=== PATIENT | female | born 1935 | race Caucasian/White ===

== ENCOUNTER 2022-02-22 11:33 | Outpatient (CLI) | payer MEDICARE, SELFPAY ==
--- NOTE | 2022-02-22 11:30 | CRLHL7_ITS ---
For Patients: As a result of the Century Cures Act, medical imaging exams and procedure reports are released immediately into your electronic medical record. You may view this report before your referring provider. If you have questions, please contact your health care provider. RIGHT SCREENING DIGITAL MAMMOGRAM WITH COMPUTER-AIDED DETECTION AND TOMOSYNTHESIS, 02/22/2022 INDICATION: 86-year-old asymptomatic female for screening mammogram. TECHNIQUE: CC and MLO views were obtained using full-field digital technique. These mammographic images were interpreted with the benefit of computer-aided detection and tomosynthesis. COMPARISON FILM: 03/04/2020, 03/01/2019. BREAST COMPOSITION: The breast is heterogeneously dense, which may obscure small masses. FINDINGS: Possible 1.3 cm asymmetry in the RIGHT breast at the 2 o`clock position 7 cm from the nipple. IMPRESSION: Possible RIGHT breast asymmetry. RECOMMENDATION: Recommend MLO and CC spot compression views and a 90-degree lateral view. Additionally, ultrasound may be needed during the diagnostic evaluation. The [facility] will contact the patient for follow-up. ASSESSMENT: BI-RADS Category 0: Incomplete: Need Additional Imaging Evaluation and/or Prior Mammograms for Comparison A lay language report of this examination will be provided to the patient. VIANNEY MAHAJAN M.D. Diagnostic/Breast Radiologist [email or web address] Transcribed: 2:[address]/Dictated by: Vianney Mahajan MD @ 02/22/2022 12:36:00 PM (Electronically Signed)
== END 2022-02-22 11:34 | disposition home or self-care (01) ==
LOC: MAMMO 11:34
PROVIDERS: PCP Internal Medicine; Visit Provider Internal Medicine
DX: Z12.31 Encounter for screening mammogram for malignant neoplasm of breast (principal); N63.10 Unspecified lump in the right breast, unspecified quadrant; R92.2 Inconclusive mammogram
CPT/HCPCS: 77063; 77067

== ENCOUNTER 2022-03-01 14:15 | Outpatient (RCR) | payer MEDICARE, SELFPAY | END 2022-12-08 23:59 | disposition home or self-care (01) | PROVIDERS: PCP Family Medicine; Visit Provider Psychiatry & Neurology Neurology | DX: R26.9 Unspecified abnormalities of gait and mobility (principal); Z51.89 Encounter for other specified aftercare | CPT/HCPCS: 97110; 97162; 97530 ==

== ENCOUNTER 2022-03-03 10:51 | Outpatient (CLI) | payer MEDICARE, SELFPAY ==
[2022-03-03 14:46] LABS: Chloride* 102 mmol/L (96-114); Sodium* 137 mmol/L (135-149)
[2022-03-03 14:47] LABS: Potassium* 4.3 mmol/L (3.6-5.1)
[2022-03-03 14:49] LABS: Carbon Dioxide* 25 mmol/L (20-32); Cholesterol* 250 mg/dL (90-199)
[2022-03-03 14:50] LABS: Blood Urea Nitrogen* 17 mg/dL (7-30); Calcium* 9.9 mg/dL (8.4-10.6); Glucose* 123 mg/dL (60-115); HDL Cholesterol* 70 mg/dL (>=50); LDL Cholesterol Calculated 132 mg/dL (<100); Triglycerides* 239 mg/dL (40-149)
[2022-03-03 15:05] LABS: Creatinine* 0.7 mg/dL (0.5-1.5); Estimated Glomerular Filt Rate 84 ml/min
== END 2022-03-03 10:52 | disposition home or self-care (01) ==
PROVIDERS: PCP Family Medicine; Visit Provider Internal Medicine
DX: Z00.00 Encounter for general adult medical examination without abnormal findings (principal); E78.5 Hyperlipidemia, unspecified; I10 Essential (primary) hypertension; E66.9 Obesity, unspecified; F41.9 Anxiety disorder, unspecified
CPT/HCPCS: 80048; 80061

== ENCOUNTER 2022-03-08 09:35 | Outpatient (CLI) | payer MEDICARE, SELFPAY ==
--- NOTE | 2022-03-08 09:45 | CRLHL7_ITS ---
For Patients: As a result of the Cures Act, medical imaging exams and procedure reports are released immediately into your electronic medical record. You may view this report before your referring provider. If you have questions, please contact your health care provider. DIGITAL DIAGNOSTIC RIGHT MAMMOGRAM USING TOMOSYNTHESIS AND COMPUTER-AIDED DETECTION RIGHT BREAST ULTRASOUND CLINICAL HISTORY: RIGHT breast mass/asymmetry. COMPARISON: 02/22/2022,. TECHNIQUE: Digital RIGHT mammogram in three projections. Tomosynthesis and CAD utilized. Real-time ultrasound imaging of RIGHT breast with imaging documentation. BREAST COMPOSITION: There are areas of scattered fibroglandular density. FINDINGS: 3D spot compression CC/MLO and 3D true lateral RIGHT breast mammogram submitted. Decreased conspicuity of asymmetric density within the RIGHT breast. Benign calcifications are present. No architectural distortion. Targeted RIGHT breast ultrasound performed at 2 o`clock 7 cm from the nipple. Normal fibroglandular tissue is present. No fibrocystic change or solid mass. IMPRESSION: Normal additional mammogram images RIGHT breast and normal targeted RIGHT breast ultrasound. No evidence of malignancy. RECOMMENDATIONS: Annual screening mammography. Results and recommendations discussed with the patient. BI-RADS Category 2: Benign A lay language report of this examination will be provided to the patient. Dictated by Tres Geramn MD @ 03/08/2022 11:47:16 AM jj/Dictated by: Tres German MD @ 03/08/2022 11:44:00 AM (Electronically Signed)
--- NOTE | 2022-03-08 10:15 | CRLHL7_ITS ---
For Patients: As a result of the Cures Act, medical imaging exams and procedure reports are released immediately into your electronic medical record. You may view this report before your referring provider. If you have questions, please contact your health care provider. PLEASE SEE DIGITAL DIAGNOSTIC RIGHT MAMMOGRAM PERFORMED SAME DAY CRL:[email or web address] buckner/Dictated by: Tres German MD @ 03/08/2022 11:47:00 AM (Electronically Signed)
== END 2022-03-08 09:36 | disposition home or self-care (01) ==
LOC: MAMMO 09:36
PROVIDERS: PCP Family Medicine; Visit Provider Internal Medicine
DX: N63.10 Unspecified lump in the right breast, unspecified quadrant (principal); R92.8 Other abnormal and inconclusive findings on diagnostic imaging of breast
CPT/HCPCS: 76642; 77065; G0279

== ENCOUNTER 2022-07-29 10:00 | Outpatient (RCR) | payer MEDICARE, SELFPAY ==
--- NOTE | 2022-04-29 18:16 | PT.OPEX ---
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 She reports that she is going to be seeing a urologist for her incontinence. Her NPH is medically managed by [place], pt states that there are no additional medical interventions that can be done for her at this time. She did not have a significant response to spinal tap and therefore may not benefit from a shunt. She has not fallen in the last couple of months. Is using a combination of 4WW in the house and SEC, is using a cane today in clinic. She doesn't note any specific moments or activities that makes her unsteady but notices more difficulty towards the end of the day. With walking and doing the steps she has difficulties navigating her doors and steps to get outside . She is not sure if she is getting any better or worse. She also has questions as to what she should be doing to address her symptoms as she is motivated to now work with therapy. Overall goals for PT are to improve balance and stability. PMHx: NPH, breast cancer, HTN, pacemaker, Current Work Status Retired Objective Other/Pertinent Objective ROM: B hip WFL as seen by [facility]MAN positioning strength: 5x STS 23.39s with use of arms hip flexors 4-/5 B knee extensors 4/5 B ankle DF L 4-/5 R 4/5 gait/balance: FGA all performed with SEC 14/ 30 most difficulty with eyes closed, backward walks, pivot turns, vertical head turns Patient ambulates with SEC in R hand, small step length, decreased foot clearance, slow pace throughout sensation: impaired sensation over dorsum of bilateral feet, patient having difficulty telling what foot/side that was being assessed. Difficulties with big toe proprioception coordination: toe taps and alternating intact, finger to nose intact Posture: B foot pronation and flat arches in sitting and standing Functional Test Performed & Score 5x STS 23.39s with use of arms FGA all performed with SEC 14/ 30 most difficulty with eyes closed, backward walks, pivot turns, vertical head turns Assessment Assessment/Impression Patient is an 86 year old female presenting with balance difficulties with ambulation due to normal pressure hydrocephalus. Their primary complaint is of instability that is most present at the end of her day with fatigue. Patient has been using a 4WW or SEC for mobility with no recent falls. No surgical interventions will be pursued at this time however patient is going to be consulting a urologist for her incontinence . Upon assessment patient displays decreased functional LE strength and deconditioning with 5x STS which is below age matched norms. Global LE weakness noted with MMT, most significant in hip flexors. Patient scored a 14/30 on FGA indicating increased falls risk with most difficulty ambulating with eyes closed, walking backwards, pivot turns and gait with vertical head turns. Impairments in bilateral LE sensation and proprioception also noted on exam, no coordination deficits at this time. Patient would greatly benefit from skilled PT to address impairments stated above in order to perform household and community mobility with improved tolerance and balance /stability to decrease risk for future falls and prevent further functional decline. Primary Functional Limitations walking, sitting to standing, navigating exiting home Plan of Care Rehabilitation Potential Good Physical Therapy Goals In 12-15 visits: 1. Patient will be IND with home program and self management of symptoms 2. Patient will improve 5x STS with or without hands from 23 .39s to 19s or less (MDC 4s) to demonstrate improvements in LE functional strength and activity tolerance 3. Patient will improve FGA from 14 to 18 (MDC 4) to demonstrate improvements in balance/stability for household and community mobility 4. Patient will report improved fatigue and minimal unsteadiness at the end of her day 4/7 days of the week for improved safety with mobility Coordination/Communication With Referral Source Treatment Plan/Direct Interventions Gait Training,Joint Mobilization,Manual Therapy, Neuromuscular Re-ed,Self-Care/ Home Management,Therapeutic Activities,Therapeutic Exercises Frequency/Duration 1-2x a week for 8 weeks Patient Will Be Discharged From Therapy Completion of LTG(s), Independent w/HEP Evaluation Billing Untimed Code Treatment Minutes 36 Complexity Moderate Certification Information Initial Certification Date 04/29/22 Ending Certification Date 07/22/22 Provider Signature Shows Agreement With POC & Medical Necessity Physician Signature & Date Requested Please Sign/Date Here Physician Comment/Change : Physician NPI Number #
--- NOTE | 2022-07-19 10:54 | PT.OPDNX ---
PT [place] Outpatient Daily Note PT [facility] Outpatient Daily Note Start: 04/29/22 15:18 Freq: Status: Active Protocol: Document 07/19/22 07:47 ENM (Rec: 07/19/22 10:47 ENM [id number]) E-signed By Sully Hinds DPT PT [facility] Daily Progress Note Visit Information Note Type Recert/Progress Note Visit Number [id number] Insurance Information Recert Due Date 10/11/22 Insurance Name Medicare B Medical Diagnosis age related physical disability idiopathic normal pressure hydrocephalus Treating Diagnosis impaired gait, impaired balance, decreased activity tolerance, decreased LE strength Referring MD Armstrong Subjective Subjective Patient states that she got a little bit of exercises in with walking and standing at her counter. Still hasn't found the right way to practice her sit to stands. Is planning to go to the senior once this week. Cruise coming up at the end of August. Neurology appointment in 2 weeks at [facility]. Home Exercise Home Exercise Comments Access Code: [email or web address] URL: [email or web address] Date: 04/29/2022 Prepared by: Sully Hinds Exercises Tandem Walking with Counter Support - 1 x daily - 7 x weekly - 2 sets - 8 reps Side Stepping with Counter Support - 1 x daily - 7 x weekly - 2 sets - 8 reps Sit to Stand Without Arm Support - 2 x daily - 7 x weekly - 1 sets - 8 reps Objective Other/Pertinent Objective TUG: with SEC 18.26s, with 4WW 13.3s Functional Test Performed & Score 07/05/22: 6 minute walk test 684 ft w 4WW and two standing rest breaks 06/28/2022 reassessed FGA: 13/30 w SEC use on items 7, 8, and 9. greatest difficulty w narrow FARRAH, eyes closed, stairs, step over obstacle, vertical head turns 06/21/22 reassessed 5x STS: 19. 29 sec w R UE on armrest 5x STS 23.39s with use of arms FGA all performed with SEC 14/ 30 most difficulty with eyes closed, backward walks, pivot turns, vertical head turns Patient Instructed in Risks/Benefits Yes Therapeutic Exercise Therapeutic Exercise Minutes (minutes) 36 Therapeutic Exercise: To Restore -Nustep UE/LE level 4 seat at Functional Status 12 x7 mins (SPM 50-60s) -STS w L or R UE support 3x10, medium fatigue following -endurance ambulation with 4WW x2 laps ( L1 2 mins, L2 2 mins ) Seated rest between each set for SOB and fatigue Neuromuscular Re-Ed Neuromuscular Reeducation Minutes ( 6 minutes) Neuromuscular Reeducation Comments dynamic balance walks -march walks 20'x2 SBA-CGA -tandem walks 20'x2 CGA -walking with eyes closed 20' x2 CGA, second set veering off the path towards the R -50' walking normal pace and quick pace Minimal-mild instability throughout Treatment Minutes Timed Code Treatment Minutes 42 Total Treatment Time 42 Billing Units Therapeutic Exercise Units 3 Assessment/Impression Assessment/Impression Patient returns to PT for balance/fall prevention follow -up. Sessions have focused on addressing cardiovascular endurance through ambulation, standing marches and sit<> stands. As well as dynamic balance and stability. She has continued to make very slow but steady small gains toward goals. Demonstrates improvements in LE functional strength as seen with STS. Improving fatigue toward end of the day as seen with self reports of no longer having near falls later in the evening. She is working to be more consistent with activity and exercising out of therapy, has started to go to the senior center once a week. [place] continues to benefit from skilled PT improve functional strength, activity tolerance and dynamic balance in order to safely participate in household/community mobility. Plan of Care Physical Therapy Goals In 12-15 visits: 1. Patient will be IND with home program and self management of symptoms MET 2. Patient will improve 5x STS with or without hands from 23 .39s to 19.39s or less (MDC 4s ) to demonstrate improvements in LE functional strength and activity tolerance. MET 3. Patient will improve FGA from 14 to 18 (MDC 4) to demonstrate improvements in balance/stability for household and community mobility NOT MET DISCONTINUED GOAL 4. Patient will report improved fatigue and minimal unsteadiness at the end of her day 4/7 days of the week for improved safety with mobility MET Added 07/19 5. Patient will display TUG score of 13s or less with AD to demonstrate decrease risk for falling Daily Plan of Care Continue per POC Daily Plan of Care Comments Plan: progress ambulation with 4WW balance challenges with SEC progress reps of STS step ups Recertification Information Initial Certification Date 04/29/22 Recertification Start Date 07/19/22 Recertification Due Date 10/11/22 Reasons to Continue Skilled Therapy [place] continues to benefit from skilled PT to prevent functional decline given complex medical history. As well as continue progressing functional strength, balance and activity tolerance in order to participate safely in community mobility Rehabilitation Potential fair Continued Plan of Care and Interventions 3 additional visits to finish out initial POC Provider Signature Shows Agreement With POC & Medical Necessity Physician Comment/Change Comment or Changes Physician NPI Number #
== END 2022-07-29 15:28 | disposition home or self-care (01) ==
PROVIDERS: PCP Family Medicine; Visit Provider Internal Medicine
DX: R54 Age-related physical debility (principal); Z51.89 Encounter for other specified aftercare
CPT/HCPCS: 97110; 97112; 97116; 97162

== ENCOUNTER 2022-11-07 09:06 | Emergency (ER) | payer MEDICARE, SELFPAY ==
[2022-11-07 09:18] VITALS: BP 190/129; PULSE 68; RESP 18; TEMP 35.9; O2SAT 94
--- NOTE | 2022-11-07 09:39 | ED.WOUNDLAC ---
HPI - Wound/Laceration General Chief Complaint: Laceration/Wound Stated Complaint: old wound bleed on scalp - on blood thinners Time Seen by Provider: 11/07/22 09:28 History of Present Illness HPI narrative: This 87-year-old woman comes in because of rebleeding in her scalp. She had an injury a couple weeks ago that required staple repair. She is on blood thinners. The delmer were applied because of persistent bleeding at that time. Since then the delmer have been removed and there was a scab on the wound that she was encouraged to rub. She was doing this and bleeding resumed. She has persistent oozing from this injury site in the scalp. She does not report any lightheadedness or shortness of breath. Related Data Home Medications Medication Instructions Recorded Confirmed L mastectomy bra 12/13/21 10/31/22 apixaban 5 mg tablet 5 mg PO BID 12/13/21 10/31/22 calcium carbonate 600 mg calcium 600 mg PO DAILY 12/13/21 10/31/22 (1,500 mg) tablet cholecalciferol (vitamin D3) 125 5,000 unit PO DAILY 12/13/21 10/31/22 mcg (5,000 unit) tablet cyanocobalamin (vitamin B-12) 1,000 mcg PO DAILY 12/13/21 10/31/22 1,000 mcg tablet glucosamine-chondroitin 250 mg-200 1 tab PO BID 12/13/21 10/31/22 mg tablet melatonin 5 mg capsule 5 mg PO .Bedtime 12/13/21 10/31/22 multivit with 1 tab PO QDAY 12/13/21 10/31/22 khlsmfhw-fbpl-FV-lutein 8 mg iron-400 mcg-300 mcg tablet (Centrum Silver Women) mirabegron 50 mg tablet,extended 50 mg PO QDAY 07/05/22 10/31/22 release 24 hr (Myrbetriq) metoprolol succinate 100 mg 100 mg PO QDAY 08/01/22 10/31/22 tablet,extended release 24 hr vibegron 75 mg tablet (Gemtesa) 75 mg PO QDAY 08/10/22 10/31/22 Previous Rx's Medication Instructions Recorded sertraline 100 mg tablet 100 mg PO DAILY #90 tabs 03/03/22 valsartan 160 mg tablet 160 mg PO BID #180 tabs 03/03/22 atorvastatin 20 mg tablet 20 mg PO QDAY #90 tabs 03/22/22 alendronate 70 mg tablet 70 mg PO .Every 7 Days #12 tabs 05/19/22 gabapentin 800 mg tablet 800 mg PO TID #360 tabs 05/19/22 Allergies Allergy/AdvReac Type Severity Reaction Status Date / Time bacitracin Allergy Intermediate Pain, Verified 10/31/22 13:38 irritation latex Allergy Mild Rash, Verified 10/31/22 13:38 effects breathing nickel Allergy Mild Irritation Verified 10/31/22 13:38 Erythromycin Allergy Unknown Unknown Uncoded 10/31/22 13:38 Review of Systems Status of ROS: Reports: 10 or more systems reviewed and unremarkable except as noted in History and below Narrative: Constitutional: No fevers, no weight gain or loss. Eyes: No discharge. No vision changes. HENT: No congestion, no sore throat, no ear pain. Cardiovascular: No chest pain, no palpitations. Respiratory: No shortness of breath, no wheezes, no cough. Gastrointestinal: No abdominal pain, no vomiting, no diarrhea. Genitourinary: No dysuria, no hematuria. Musculoskeletal: Normal range of motion. Skin: No rashes, no pruritis. Persistent bleeding from a wound in the scalp. Neurological: No dizziness, weakness, sensory change, speech change. Endo/Heme/Allergies: No bruising or bleeding. No polydipsia. Pysch: no suicidality, no anxiety, no insomnia. All other systems reviewed and are negative. 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 3-4/week , works [employer] 3 week, 2 kids, lives with daughter Smoking Status: Never smoker Do you use any of these nicotine containing products: None Second hand tobacco smoke exposure: No Non-prescribed substance use: denies use Little interest or pleasure in doing things: not at all Feeling down, depressed, or hopeless: not at all Exam Narrative: Exam Narrative: Constitutional: Well-developed, well-nourished, no acute distress. HEENT: Persistent oozing of blood from a wound in the scalp. The wound is less than 1 cm in length. Neck: Normal range of motion. Nontender. Supple. Heart: Intact distal pulses. Lungs: No chest discomfort. No wheezes, rhonchi, or rales. Abdomen: Nontender. Back: Normal range of motion. Extremities: Normal range of motion. No injury. Skin: Intact. No rash. Warm. No erythema or pallor. Neurologic: No altered sensation. No weakness. Alert and oriented. Psychiatric: No suicidality. No anxiety or depression. No insomnia. Nursing notes and vitals signs are reviewed. Const: Vital Signs, click to edit/add: Vital Signs - 24 hr 11/07/22 09:18 Temperature 96.6 F L Pulse Rate [Right Pulse Oximeter] 68 Respiratory Rate 18 Blood Pressure [Ri ght Upper Arm] 190/129 H Pulse Oximetry 94 Oxygen Delivery Me thod Room Air Course Vital Signs Vital signs: Initial Vital Signs Temperature 96.6 F L 11/07/22 09:18 Temperature Source Temporal Artery Scan 11/07/22 09:18 Pulse Rate 68 06/19/23 09:18 Respiratory Rate 18 11/07/22 09:18 Blood Pressure 190/129 H 11/07/22 09:18 Blood Pressure Mean 149 H 11/07/22 09:18 Blood Pressure Position Sitting 11/07/22 09:18 Pulse Oximetry 94 11/07/22 09:18 Oxygen Delivery Method Room Air 11/07/22 09:18 Vital Signs Temperature 96.6 F L 11/07/22 09:18 Pulse Rate 68 11/07/22 09:18 Respiratory Rate 18 11/07/22 09:18 Blood Pressure 190/129 H 11/07/22 09:18 Pulse Oximetry 94 11/07/22 09:18 Oxygen Delivery Method Room Air 11/07/22 09:18 Temperature 96.6 F L 11/07/22 09:18 Pulse Rate 68 11/07/22 09:18 Respiratory Rate 18 11/07/22 09:18 Blood Pressure 190/129 H 11/07/22 09:18 Pulse Oximetry 94 11/07/22 09:18 Oxygen Delivery Method Room Air 11/07/22 09:18 MDM - Wound/Laceration MDM Narrative Medical decision making narrative: This patient comes in with rebleeding of a wound in her scalp that was repaired a couple weeks ago with delmer. The delmer have been removed and she was rubbing this area and now bleeding has resumed again. I did clean the wound with water but saw that there was persistent oozing of blood that would likely require suture or staple repair again. After anesthesia with 1% lidocaine with epinephrine I placed 5 delmer to arrest the bleed. The patient was observed for about half an hour and there was no rebleeding. Instructions were given regarding wound care and the need for staple removal again in 5-7 days. Discharge Plan Discharge Clinical Impression: Laceration of scalp Patient Disposition: Home w/ Parent or Adult Condition: Improved Additional Instructions: Return to clinic or urgent care in 5-7 days for is a staple removal. Follow up with MD as needed or return if worsening symptoms happen. Prescriptions: No Action melatonin 5 mg capsule 5 mg PO .Bedtime cholecalciferol (vitamin D3) 125 mcg (5,000 unit) tablet 5,000 unit PO DAILY glucosamine-chondroitin 250-200 mg tablet 1 tab PO BID calcium carbonate 600 mg calcium (1,500 mg) tablet 600 mg PO DAILY cyanocobalamin (vitamin B-12) 1,000 mcg tablet 1,000 mcg PO DAILY Centrum Silver Women 8 mg iron-400 mcg-300 mcg tablet 1 tab PO QDAY (DME) L mastectomy bra 0 .Route .MEDSUPPLY apixaban 5 mg tablet 5 mg PO BID Myrbetriq 50 mg tablet extended release 24 hr 50 mg PO QDAY Hold Instructions: Patient trying new medication metoprolol succinate 100 mg tablet extended release 24 hr 100 mg PO QDAY valsartan 160 mg tablet 160 mg PO BID Qty: 180 3RF sertraline 100 mg tablet 100 mg PO DAILY Qty: 90 3RF atorvastatin 20 mg tablet 20 mg PO QDAY Qty: 90 3RF alendronate 70 mg tablet 70 mg PO .Every 7 Days Qty: 12 4RF gabapentin 800 mg tablet 800 mg PO TID Qty: 360 3RF Gemtesa 75 mg tablet 75 mg PO QDAY Follow Up/Referrals: Lina Armstrong MD [Primary Care Provider] - Stand Alone Forms: [facility] Info Instructions
== END 2022-11-07 10:29 | disposition home or self-care (01) ==
LOC: ED 10:24
PROVIDERS: Emergency Provider Emergency Medicine Emergency Medical Services; PCP Internal Medicine
DX: S01.01XA Laceration without foreign body of scalp, initial encounter (principal)
CPT/HCPCS: 12001; 99283; 99284

== ENCOUNTER 2022-11-27 15:21 | Emergency (ER) | payer MEDICARE, SELFPAY ==
[2022-11-27 15:23] VITALS: BP 180/141; PULSE 76; RESP 18; TEMP 36.5; O2SAT 92; BMI 33.8
--- NOTE | 2022-11-27 15:32 | CRLHL7_ITS ---
For Patients: As a result of the Cures Act, medical imaging exams and procedure reports are released immediately into your electronic medical record. You may view this report before your referring provider. If you have questions, please contact your health care provider. INDICATION: Fall, head injury back of head. COMPARISON: CT head 10/15/2022. TECHNIQUE: CT of the head without IV contrast. Coronal and sagittal reconstructions. FINDINGS: No intracranial hemorrhage, mass effect, or evidence of acute infarct. No midline shift. No abnormal extra-axial fluid collections. Mild to moderate generalized cerebral and cerebellar volume loss with associated ex vacuo dilation of the lateral ventricles. Mild to moderate chronic small vessel ischemic disease. Orbits and extraocular muscles are symmetric. The visualized paranasal sinuses and mastoid air cells are clear. No acute fracture identified. Large right posterior scalp hematoma. Small focus of residual scarring in the left anterior frontal scalp. IMPRESSION: 1. No acute intracranial findings. 2. Mild to moderate generalized cerebral volume loss and chronic small vessel ischemic disease. 3. Large right posterior scalp hematoma. Please note that all CT scans at this facility use dose modulation, iterative reconstruction, and/or weight-based dosing when appropriate to reduce radiation dose to as low as reasonably achievable. Dictated by Alexia Uribe MD @ 11/27/2022 4:39:11 PM (Electronically Signed)
--- NOTE | 2022-11-27 15:32 | ED_ITS ---
HPI - Head Injury General Chief complaint: Head Injury/Pain Stated complaint: fall, head lac Time Seen by Provider: 11/27/22 15:25 History of Present Illness HPI Narrative: This 87-year-old woman comes in for evaluation of a fall with injury to her head. This occurred just prior to arrival. She was at home and was carrying something when she misstepped and fell backwards. She bumped the occipital part of her head and has a hematoma there. She is on Eliquis. She does not report a ny headache and was able to get up and ambulate. She does not have any neck or back pain. She takes Eliquis for paroxysmal atrial fibrillation. Related Data Home Medications Medication Instructions Recorded Confirmed L mastectomy bra 12/13/21 11/14/22 apixaban 5 mg tablet 5 mg PO BID 12/13/21 11/14/22 calcium carbonate 600 mg calcium 600 mg PO DAILY 12/13/21 11/14/22 (1,500 mg) tablet cholecalciferol (vitamin D3) 125 5,000 unit PO DAILY 12/13/21 11/14/22 mcg (5,000 unit) tablet cyanocobalamin (vitamin B-12) 1,000 mcg PO DAILY 12/13/21 11/14/22 1,000 mcg tablet glucosamine-chondroitin 250 mg-200 1 tab PO BID 12/13/21 11/14/22 mg tablet multivit with 1 tab PO QDAY 12/13/21 11/14/22 tholkjbk-hwtf-TQ-lutein 8 mg iron-400 mcg-300 mcg tablet (Centrum Silver Women) mirabegron 50 mg tablet,extended 50 mg PO QDAY 07/05/22 11/14/22 release 24 hr (Myrbetriq) metoprolol succinate 100 mg 100 mg PO QDAY 08/01/22 11/14/22 tablet,extended release 24 hr vibegron 75 mg tablet (Gemtesa) 75 mg PO QDAY 08/10/22 11/14/22 Previous Rx's Medication Instructions Recorded sertraline 100 mg tablet 100 mg PO DAILY #90 tabs 03/03/22 valsartan 160 mg tablet 160 mg PO BID #180 tabs 03/03/22 atorvastatin 20 mg tablet 20 mg PO QDAY #90 tabs 03/22/22 alendronate 70 mg tablet 70 mg PO .Every 7 Days #12 tabs 05/19/22 gabapentin 800 mg tablet 800 mg PO TID #360 tabs 05/19/22 Allergies Allergy/AdvReac Type Severity Reaction Status Date / Time bacitracin Allergy Intermediate Pain, Verified 11/14/22 13:41 irritation latex Allergy Mild Rash, Verified 11/14/22 13:41 effects breathing nickel Allergy Mild Irritation Verified 11/14/22 13:41 Erythromycin Allergy Unknown Unknown Uncoded 11/14/22 13:41 Review of Systems Status of ROS: Reports: 10 or more systems reviewed and unremarkable except as noted in History and below Narrative: Constitutional: No fevers, no weight gain or loss. Eyes: No discharge. No vision changes. HENT: No congestion, no sore throat, no ear pain. Cardiovascular: No chest pain, no palpitations. Respiratory: No shortness of breath, no wheezes, no cough. Gastrointestinal: No abdominal pain, no vomiting, no diarrhea. Genitourinary: No dysuria, no hematuria. Musculoskeletal: Normal range of motion. Skin: No rashes, no pruritis. Neurological: No dizziness, weakness, sensory change, speech change. Endo/Heme/Allergies: No bruising or bleeding. No polydipsia. Pysch: no suicidality, no anxiety, no insomnia. All other systems reviewed and are negative. 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) ?Z96.652 - Presence of left artificial knee joint (ICD-10) 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 3-4/week , works [employer] 3 week, 2 kids, lives with daughter Smoking Status: Never smoker Do you use any of these nicotine containing products: None Second hand tobacco smoke exposure: No Non-prescribed substance use: denies use Little interest or pleasure in doing things: not at all Feeling down, depressed, or hopeless: not at all Exam Narrative: Exam Narrative: Constitutional: Well-developed, well-nourished, no acute distress. HEENT: Hematoma in the occipital portion of her head. There is no abrasion or laceration. Neck: Normal range of motion. Nontender. Supple. No pain when palpating along the spine of the neck and back. Heart: Regular. Mild systolic injection murmur. Normal rate. Intact distal pulses. Lungs: Clear to auscultation. No chest discomfort. No wheezes, rhonchi, or rales. Abdomen: Normal bowel sounds. Nontender. No rebound tenderness. Genitalia: Deferred. Back: No midline tenderness. Normal range of motion. Extremities: Normal range of motion. No injury. Skin: Intact. No rash. Warm. No erythema or pallor. Neurologic: No altered sensation. No weakness. Alert and oriented. Psychiatric: No suicidality. No anxiety or depression. No insomnia. Nursing notes and vitals signs are reviewed. Const: Vital Signs, click to edit/add: Vital Signs - 24 hr 11/27/22 15:23 Temperature 97.7 F Pulse Rate [Right Pulse Oximeter] 76 Respiratory Rate 18 Blood Pressure [Ri ght Upper Arm] 180/141 H Pulse Oximetry 92 Oxygen Delivery Me thod Room Air Course Vital Signs Vital signs: Initial Vital Signs Temperature 97.7 F 11/27/22 15:23 Temperature Source Temporal Artery Scan 11/27/22 15:23 Pulse Rate 76 11/27/22 15:23 Respiratory Rate 18 11/27/22 15:23 Blood Pressure 180/141 H 11/27/22 15:23 Blood Pressure Mean 154 H 11/27/22 15:23 Blood Pressure Position Sitting 11/27/22 15:23 Pulse Oximetry 92 11/27/22 15:23 Oxygen Delivery Method Room Air 11/27/22 15:23 Vital Signs Temperature 97.7 F 11/27/22 15:23 Pulse Rate 76 11/27/22 15:23 Respiratory Rate 18 11/27/22 15:23 Blood Pressure 180/141 H 11/27/22 15:23 Pulse Oximetry 92 11/27/22 15:23 Oxygen Delivery Method Room Air 11/27/22 15:23 Temperature 97.7 F 11/27/22 15:23 Pulse Rate 76 11/27/22 15:23 Respiratory Rate 18 11/27/22 15:23 Blood Pressure 180/141 H 11/27/22 15:23 Pulse Oximetry 92 11/27/22 15:23 Oxygen Delivery Method Room Air 11/27/22 15:23 MDM - Head Injury MDM Narrative Medical decision making narrative: This patient comes in for evaluation of injury from a fall that occurred just prior to arrival. She has a rather large occipital scalp hematoma. She is on Eliquis for paroxysmal atrial fibrillation. She does not report any other injury. She is not showing any sign of neurologic deficit. She does not have a headache. She is able to ambulate and her speech is normal. CT imaging of her head returns with no intracranial findings. There is no sign of fracture. She does of course have this large hematoma that is visualized also on CT imaging. Patient is okay to return home to continue current plans. Imaging Data CT scan - head: Radiologist's impression: 1. No acute intracranial findings. 2. Mild to moderate generalized cerebral volume loss and chronic small vessel ischemic disease. 3. Large right posterior scalp hematoma. Discharge Plan Discharge Clinical Impression: Hematoma of occipital region of scalp, Closed head injury Patient Disposition: Home w/ Parent or Adult Condition: Stable Additional Instructions: Continue current plans. Activity as tolerated. Follow up with MD or return if worsening. Prescriptions: No Action cholecalciferol (vitamin D3) 125 mcg (5,000 unit) tablet 5,000 unit PO DAILY glucosamine-chondroitin 250-200 mg tablet 1 tab PO BID calcium carbonate 600 mg calcium (1,500 mg) tablet 600 mg PO DAILY cyanocobalamin (vitamin B-12) 1,000 mcg tablet 1,000 mcg PO DAILY Centrum Silver Women 8 mg iron-400 mcg-300 mcg tablet 1 tab PO QDAY (DME) L mastectomy bra 0 .Route .MEDSUPPLY apixaban 5 mg tablet 5 mg PO BID Myrbetriq 50 mg tablet extended release 24 hr 50 mg PO QDAY Hold Instructions: Patient trying new medication metoprolol succinate 100 mg tablet extended release 24 hr 100 mg PO QDAY valsartan 160 mg tablet 160 mg PO BID Qty: 180 3RF sertraline 100 mg tablet 100 mg PO DAILY Qty: 90 3RF atorvastatin 20 mg tablet 20 mg PO QDAY Qty: 90 3RF alendronate 70 mg tablet 70 mg PO .Every 7 Days Qty: 12 4RF gabapentin 800 mg tablet 800 mg PO TID Qty: 360 3RF Gemtesa 75 mg tablet 75 mg PO QDAY Follow Up/Referrals: Lina Armstrong MD [Primary Care Provider] - Stand Alone [facility]: [facility] Inst[facility]
== END 2022-11-27 17:11 | disposition home or self-care (01) ==
LOC: ED 16:53
PROVIDERS: Emergency Provider Emergency Medicine Emergency Medical Services; PCP Internal Medicine
DX: S00.03XA Contusion of scalp, initial encounter (principal); W01.10XA Fall on same level from slipping, tripping and stumbling with subsequent striking against unspecified object, initial encounter
CPT/HCPCS: 70450; 99283; 99284

== ENCOUNTER 2022-12-10 07:15 | Emergency (ER) | payer MEDICARE, SELFPAY ==
[2022-12-10] VITALS (26 sets, daily range): BP systolic 185–219; BP diastolic 79–147; PULSE 63–84; RESP 18; TEMP 36.2; O2SAT 87–98; BMI 33.8
--- NOTE | 2022-12-10 07:32 | ED_ITS ---
HPI - Headache General Chief Complaint: Headache/Migraine <Stuart Comer MD - Last Filed: 12/12/22 07:37> Stated Complaint: headache <Stuart Comer MD - Last Filed: 12/12/22 07:37> Time Seen by Provider: 12/10/22 07:27 <Stuart Comer MD - Last Filed: 12/12/22 07:37> History of Present Illness HPI Narrative: Patient is a 87-year-old woman who fell approximately 2 weeks ago striking the back of her head. Patient was seen in the emergency room and CT scan showed only superficial scalp hematoma. Patient has history of normal pressure hydrocephalus. Patient had been recovering reasonably well but overnight developed a severe occipital headache. She has no other neurologic symptoms no nausea no vomiting no fevers no chills no neck pain. She presents with worsening of her symptoms and inability control her symptoms at home. No neurologic symptoms have been noted. Patient does take apixaban for paroxysmal atrial fibrillation. <Stuart Comer MD - Last Filed: 12/12/22 07:37> Related Data Home Medications: Home Medications Medication Instructions Recorded Confirmed L mastectomy bra 12/13/21 11/14/22 apixaban 5 mg tablet 5 mg PO BID 12/13/21 11/14/22 calcium carbonate 600 mg calcium 600 mg PO DAILY 12/13/21 11/14/22 (1,500 mg) tablet cholecalciferol (vitamin D3) 125 5,000 unit PO DAILY 12/13/21 11/14/22 mcg (5,000 unit) tablet cyanocobalamin (vitamin B-12) 1,000 mcg PO DAILY 12/13/21 11/14/22 1,000 mcg tablet glucosamine-chondroitin 250 mg-200 1 tab PO BID 12/13/21 11/14/22 mg tablet multivit with 1 tab PO QDAY 12/13/21 11/14/22 epievogt-igup-PU-lutein 8 mg iron-400 mcg-300 mcg tablet (Centrum Silver Women) mirabegron 50 mg tablet,extended 50 mg PO QDAY 07/05/22 11/14/22 release 24 hr (Myrbetriq) metoprolol succinate 100 mg 100 mg PO QDAY 08/01/22 11/14/22 tablet,extended release 24 hr vibegron 75 mg tablet (Gemtesa) 75 mg PO QDAY 08/10/22 11/14/22 Previous Rx's Medication Instructions Recorded sertraline 100 mg tablet 100 mg PO DAILY #90 tabs 03/03/22 valsartan 160 mg tablet 160 mg PO BID #180 tabs 03/03/22 atorvastatin 20 mg tablet 20 mg PO QDAY #90 tabs 03/22/22 alendronate 70 mg tablet 70 mg PO .Every 7 Days #12 tabs 05/19/22 gabapentin 800 mg tablet 800 mg PO TID #360 tabs 05/19/22 tizanidine 4 mg tablet 4 mg PO Q8H PRN muscle spasticity 12/10/22 #15 tabs <Stuart Comer MD - Last Filed: 12/12/22 07:37> Allergies/Adverse Reactions: Allergies Allergy/AdvReac Type Severity Reaction Status Date / Time bacitracin Allergy Intermediate Pain, Verified 11/14/22 13:41 irritation latex Allergy Mild Rash, Verified 11/14/22 13:41 effects breathing nickel Allergy Mild Irritation Verified 11/14/22 13:41 Erythromycin Allergy Unknown Unknown Uncoded 11/14/22 13:41 <Stuart Comer MD - Last Filed: 12/12/22 07:37> Review of Systems Status of ROS: Reports: 10 or more systems reviewed and unremarkable except as noted in History and below <Stuart Comer MD - Last Filed: 12/12/22 07:37> 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) ?Z96.652 - Presence of left artificial knee joint (ICD-10) 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/20) ?Z96.649 - Presence of unspecified artificial hip joint (ICD-10) Status post cardiac pacemaker procedure (07/2018) ?Z95.0 - Presence of cardiac pacemaker (ICD-10) History of left mastectomy (1998) ?Z90.12 - Acquired absence of left breast and nipple (ICD-10) History of blepharoplasty (2007) ?Z98.890 - Other specified postprocedural states (ICD-10) <Stuart Comer MD - Last Filed: 12/12/22 07:37> Family History: Family History Aunt Breast cancer Father Colon cancer, Onset Age: 75 <Stuart Comer MD - Last Filed: 12/12/22 07:37> Social History: Social History Narrative: Exercises two times per week, water exercise 2/week Non-smoker Social drinker. 3-4/week , works [employer] 3 week, 2 kids, lives with daughter Smoking Status: Never smoker Do you use any of these nicotine containing products: None Second hand tobacco smoke exposure: No How often do you have a drink containing alcohol: 2-4 times a month AUDIT-C Alcohol total score: 2 Non-prescribed substance use: denies use Little interest or pleasure in doing things: not at all Feeling down, depressed, or hopeless: not at all <Stuart Comer MD - Last Filed: 12/12/22 07:37> Exam Narrative: Exam Narrative: EXAM GENERAL: Patient appears comfortable and well. EYES: No scleral icterus. Head is normocephalic no obvious signs of trauma. LYMPH: No supraclavicular or cervical lymphadenopathy. SKIN: Visible skin seen during exam normal or with benign process only. EXT: No dependent lower extremity pedal edema. HEART: Regular rate and rhythm with no murmurs, rubs, or gallops. LUNGS: Clear to auscultation bilaterally with no crackles or wheezes. ABD: Soft, non tender, non distended. PSYCH: Good eye contact, speech is not pressured. <Stuart Comer MD - Last Filed: 12/12/22 07:37> Const: Vital Signs, click to edit/add: Vital Signs - 24 hr 12/10/22 07:21 12/10/22 07:32 12/10/22 07:33 Temperature 97.1 F L Pulse Rate 67 67 Pulse Rate [Pulse Oximeter] 66 Respiratory Rate 18 Blood Pressure 190/85 H Blood Pressure [Ri ght Upper Arm] 198/83 H Pulse Oximetry 98 98 97 Oxygen Delivery Me thod Room Air 12/10/22 08:00 12/10/22 08:03 12/10/22 08:30 Temperature Pulse Rate 68 65 72 Pulse Rate [Pulse Oximeter] Respiratory Rate Blood Pressure 203/89 H Blood Pressure [Ri ght Upper Arm] Pulse Oximetry 98 98 95 Oxygen Delivery Me thod 12/10/22 08:32 12/10/22 08:48 12/10/22 09:00 Temperature Pulse Rate 71 75 77 Pulse Rate [Pulse Oximeter] Respiratory Rate Blood Pressure 215/112 H Blood Pressure [Ri ght Upper Arm] Pulse Oximetry 94 93 95 Oxygen Delivery Me thod 12/10/22 09:03 12/10/22 09:04 12/10/22 09:30 Temperature Pulse Rate 77 78 71 Pulse Rate [Pulse Oximeter] Respiratory Rate Blood Pressure 207/147 H Blood Pressure [Ri ght Upper Arm] Pulse Oximetry 96 94 96 Oxygen Delivery Me thod 12/10/22 09:32 12/10/22 10:00 12/10/22 10:02 Temperature Pulse Rate 76 63 72 Pulse Rate [Pulse Oximeter] Respiratory Rate Blood Pressure 213/94 H 213/93 H Blood Pressure [Ri ght Upper Arm] Pulse Oximetry 93 91 91 Oxygen Delivery Me thod 12/10/22 10:30 12/10/22 10:32 12/10/22 10:33 Temperature Pulse Rate 76 78 73 Pulse Rate [Pulse Oximeter] Respiratory Rate Blood Pressure 219/97 H Blood Pressure [Ri ght Upper Arm] Pulse Oximetry 96 95 93 Oxygen Delivery Me thod 12/10/22 11:02 Temperature Pulse Rate Pulse Rate [Pulse Oximeter] Respiratory Rate Blood Pressure 202/107 H Blood Pressure [Ri ght Upper Arm] Pulse Oximetry Oxygen Delivery Me thod <Stuart Comer MD - Last Filed: 12/12/22 07:37> Vital Signs, click to edit/add: Vital Signs - 24 hr 12/10/22 07:21 12/10/22 07:32 12/10/22 07:33 Temperature 97.1 F L Pulse Rate 67 67 Pulse Rate [Pulse Oximeter] 66 Respiratory Rate 18 Blood Pressure 190/85 H Blood Pressure [Ri ght Upper Arm] 198/83 H Pulse Oximetry 98 98 97 Oxygen Delivery Me thod Room Air 12/10/22 08:00 12/10/22 08:03 12/10/22 08:30 Temperature Pulse Rate 68 65 72 Pulse Rate [Pulse Oximeter] Respiratory Rate Blood Pressure 203/89 H Blood Pressure [Ri ght Upper Arm] Pulse Oximetry 98 98 95 Oxygen Delivery Me thod 12/10/22 08:32 12/10/22 08:48 12/10/22 09:00 Temperature Pulse Rate 71 75 77 Pulse Rate [Pulse Oximeter] Respiratory Rate Blood Pressure 215/112 H Blood Pressure [Ri ght Upper Arm] Pulse Oximetry 94 93 95 Oxygen Delivery Me thod 12/10/22 09:03 12/10/22 09:04 12/10/22 09:30 Temperature Pulse Rate 77 78 71 Pulse Rate [Pulse Oximeter] Respiratory Rate Blood Pressure 207/147 H Blood Pressure [Ri ght Upper Arm] Pulse Oximetry 96 94 96 Oxygen Delivery Me thod 12/10/22 09:32 12/10/22 10:00 12/10/22 10:02 Temperature Pulse Rate 76 63 72 Pulse Rate [Pulse Oximeter] Respiratory Rate Blood Pressure 213/94 H 213/93 H Blood Pressure [Ri ght Upper Arm] Pulse Oximetry 93 91 91 Oxygen Delivery Me thod 12/10/22 10:30 12/10/22 10:32 12/10/22 10:33 Temperature Pulse Rate 76 78 73 Pulse Rate [Pulse Oximeter] Respiratory Rate Blood Pressure 219/97 H Blood Pressure [Ri ght Upper Arm] Pulse Oximetry 96 95 93 Oxygen Delivery Me thod 12/10/22 11:02 Temperature Pulse Rate Pulse Rate [Pulse Oximeter] Respiratory Rate Blood Pressure 202/107 H Blood Pressure [Ri ght Upper Arm] Pulse Oximetry Oxygen Delivery Me thod <Nicole Perera MD - Last Filed: 12/10/22 13:09> Course Course Hospital Course: Patient seen and examined. CT of the head repeated. 1 L normal saline 30 mg Toradol 4 mg Zofran and 25 mg Benadryl ordered. <Stuart Comer MD - Last Filed: 12/12/22 07:37> Reevaluation(s) Time of Reevaluation #1: 08:28 <Nicole Perera MD - Last Filed: 12/10/22 13:09> Reevaluation #1: Patient is also complaining of pain in her buttock region. This started after the fall. She states it hurts more with walking, more by the end of the day. She had been using Tylenol for her headache since the fall, was doing better but then this morning woke up with sharp stabbing pain, she feels is like a headache for her. She just received Benadryl and Zofran, states her head is still hurting. She has not taken any Tylenol this morning. Will give her 1000 mg oral Tylenol. We will proceed with CT imaging of her lumbar spine and pelvis to rule out occult fracture from the fall. Patient is on apixaban. She does not hurt anteriorly over the symphysis area. Posteriorly she is hurting along the lower lumbar spine into the sacral area. I see no evidence of skin breakdown, no evidence of bruising, no evidence of ulceration posteriorly. <Nicole Perera MD - Last Filed: 12/10/22 13:09> Time of Reevaluation #2: 08:59 <Nicole Perera MD - Last Filed: 12/10/22 13:09> Reevaluation #2: Nursing staff reports that the patient is complaining of a 10/10 headache after coming back from imaging. Will proceed with 2 mg IV morphine. Await the lumbar and pelvic images. Head CT showing no acute pathology. <Nicole Perera MD - Last Filed: 12/10/22 13:09> Time of Reevaluation #3: 09:35 <Nicole Perera MD - Last Filed: 12/10/22 13:09> Reevaluation #3: Patient is not taken any of her a.m. medications, blood pressure is high. Daughter notes her blood pressure runs high even with her medicines. We will get her morning medicines in, see if there is any contribution to the headache with her hypertension. Again head CT is normal. She is localizing the headache to the right occipital area, can reproduce some point tenderness in that area. Have discussed trying a lidocaine injection as none of the medicines we have given her of really helped. She has tried icing. We did discuss that there could be a risk of bleeding at the skin with the injection. She does understand. She would like to proceed and I do think this is reasonable, very noninvasive way to potentially help her if it is more of an occipital neuralgia that is potentially developing. <Nicole Perera MD - Last Filed: 12/10/22 13:09> Additional Reevaluation(s): 11:25am was just in to see the patient, she states that she really needs something for the pain. The lidocaine worked for short period, states she was able to fall asleep and actually did sleep for a while. However, she feels it is already wore off and the pain is back in the right base of her head. She is described as a stabbing pain before. We have tried Tylenol, try the lidocaine injection. She cannot do NSAIDs due to a Mendez a band. She is already on gabapentin 2400 mg daily. I do wonder if the fall has aggravated occipital neuralgia for her. We discussed narcotic use an increased risk for falls. She states she will stay in a chair all day long if she has 2. The pain is miserable for her. Reviewed that narcotic pain medicines may not actually take this away but could effectively less than the pain for her. She does reside with her daughter. Both patient and daughter would like to proceed with further pain management. We did review that 2 mg IV morphine really did not help her much. We will try oxycodone 5 mg orally. Could consider adding a muscle r elaxant but obviously do worry about the increased sedative affect and increased risk of falls. 11:59am patient has stated the oxycodone has not helped at all. This was 1 of my concerns that narcotics were not going to treat this type of pain very effectively. One could conceivably consider 1 dose NSAIDs but this is not really going to be beneficial if her pain is truly from an occipital neuralgia. Will try bit of a muscle relaxant with Zanaflex. Otherwise, may need to just continue icing, take Tylenol and try to get in with Neurology outpatient. She is already on gabapentin, and him extremely reluctant to do anything like Tegretol on top of her current medications. 1:05pm patient really has not experienced any relief outside of the lidocaine which lasted briefly. At this time, plan is to discharge to home. She will use ice, baseline Tylenol, will send in a muscle relaxant for her to take scheduled. Will have her follow up outpatient, consideration for neurology referral. Alex pitt did want to know how long this might last. Unfortunately, I am unable to tell her that. For some people it is self-limited, for others is more of a chronic problem. It remains to be seen with her if this is going to be a chronic issue, even if this is the right diagnosis at this time. <Nicole Perera MD - Last Filed: 12/10/22 13:09> Vital Signs Vital signs: Initial Vital Signs Temperature 97.1 F L 12/10/22 07:21 Temperature Source Temporal Artery Scan 12/10/22 07:21 Pulse Rate 66 12/10/22 07:21 Respiratory Rate 18 12/10/22 07:21 Blood Pressure 198/83 H 12/10/22 07:21 Blood Pressure Mean 121 H 12/10/22 07:21 Blood Pressure Position Supine 12/10/22 07:21 Pulse Oximetry 98 12/10/22 07:21 Oxygen Delivery Method Room Air 12/10/22 07:21 Vital Signs Temperature 97.1 F L 12/10/22 07:21 Pulse Rate 66 12/10/22 07:21 Respiratory Rate 18 12/10/22 07:21 Blood Pressure 198/83 H 12/10/22 07:21 Pulse Oximetry 98 12/10/22 07:21 Oxygen Delivery Method Room Air 12/10/22 07:21 Temperature 97.1 F L 12/10/22 07:21 Pulse Rate 71 12/10/22 13:02 Respiratory Rate 18 12/10/22 07:21 Blood Pressure 191/79 H 12/10/22 13:32 Pulse Oximetry 94 12/10/22 13:02 Oxygen Delivery Method Room Air 12/10/22 07:21 <Stuart Comer MD - Last Filed: 12/12/22 07:37> Initial Vital Signs Temperature 97.1 F L 12/10/22 07:21 Temperature Source Temporal Artery Scan 12/10/22 07:21 Pulse Rate 66 12/10/22 07:21 Respiratory Rate 18 12/10/22 07:21 Blood Pressure 198/83 H 12/10/22 07:21 Blood Pressure Mean 121 H 12/10/22 07:21 Blood Pressure Position Supine 12/10/22 07:21 Pulse Oximetry 98 12/10/22 07:21 Oxygen Delivery Method Room Air 12/10/22 07:21 Vital Signs Temperature 97.1 F L 12/10/22 07:21 Pulse Rate 66 12/10/22 07:21 Respiratory Rate 18 12/10/22 07:21 Blood Pressure 198/83 H 12/10/22 07:21 Pulse Oximetry 98 12/10/22 07:21 Oxygen Delivery Method Room Air 12/10/22 07:21 Temperature 97.1 F L 12/10/22 07:21 Pulse Rate 71 12/10/22 13:02 Respiratory Rate 18 12/10/22 07:21 Blood Pressure 191/79 H 12/10/22 13:32 Pulse Oximetry 94 12/10/22 13:02 Oxygen Delivery Method Room Air 12/10/22 07:21 <Nicole Perera MD - Last Filed: 12/10/22 13:09> MDM - Headache Imaging Data CT pelvis: Attestation: I have reviewed the pertinent imaging results. <Nicole Rodriguez MD - Last Filed: 12/10/22 13:09> My impression: CT imaging was visualize, I do not appreciate any acute fracture, will certainly await Radiology over-read. <Nicole Perera MD - Last Filed: 12/10/22 13:09> Radiologist's impression: Patient: DES SHIRLEY Facility:?[facility] Patient ID:?[id number] Site Patient ID:?[id number]. Site :?[id number] Study:?CT Pelvis WO-12/10/2022 8:52:16 AM Ordering Physician:Raimundo Rivera Final Report: INDICATION: Pelvic pain post fall. TECHNIQUE: Volumetric helical scanning of the pelvis was performed without contrast material. Coronal and sagittal reconstructions were obtained. COMPARISON: Today`s lumbar spine CT FINDINGS: No hip or pelvic fracture is identified. Intact left hip prosthesis. No subluxation/diastasis is evident. No obvious soft tissue injury/hematoma is demonstrated. The visualized bowel is unremarkable except for colonic diverticulosis. The uterus and ovaries are grossly negative. No lymphadenopathy is evident. No free fluid is noted. IMPRESSION: Negative for fracture and other acute traumatic abnormality. Please note that all CT scans at this facility use dose modulation, iterative reconstruction, and/or weight-based dosing when appropriate to reduce radiation dose to as low as reasonably achievable. Dictated by Elkin Nguyen MD @ 12/10/2022 9:30:04 AM (Electronic Signature) <Nicole Perera MD - Last Filed: 12/10/22 13:09> CT lumbar spine: Attestation: I have reviewed the pertinent imaging results. <Nicole Perera MD - Last Filed: 12/10/22 13:09> My impression: Did visualize some of the lumbar views of the CT imaging, do not see acute fracture, await Radiology over-read. <Nicole Perera MD - Last Filed: 12/10/22 13:09> Radiologist's impression: Patient: DES SHIRLEY Facility:?[facility] Patient ID:?[id number] Site Patient ID:?[id number]. Site :?[id number] Study:?CT Spine Lumbar WO-12/10/2022 8:52:51 AM Ordering Physician:Raimundo Rivera Final Report: INDICATION: Low back pain post fall TECHNIQUE: Volumetric helical scanning of the lumbar spine was performed without contrast material. Sagittal and coronal reconstructions were also obtained. COMPARISON: Today`s pelvic CT. FINDINGS: No fracture or paraspinous hematoma is demonstrated. The disc spaces are well maintained. Advanced facet degenerative changes are demonstrated from L3-S1 and mild facet degenerative changes noted otherwise. A degenerative grade 1 L4 anterolisthesis is noted. No curvature abnormality is demonstrated. Chronic disc bulging at L3-4 is demonstrated along with facet and ligamentum flavum hypertrophy bilaterally producing mild to moderate degenerative spinal stenosis. IMPRESSION: 1. Negative for acute traumatic abnormality. 2. Degenerative changes, as above, including mild to moderate degenerative spinal stenosis at L3-4. Please note that all CT scans at this facility use dose modulation, iterative reconstruction, and/or weight-based dosing when appropriate to reduce radiation dose to as low as reasonably achievable. Dictated by Elkin Nguyen MD @ 12/10/2022 9:35:25 AM (Electronic Signature) <Nicole Perera MD - Last Filed: 12/10/22 13:09> CT scan - head: Attestation: I have reviewed the pertinent imaging results. <Nicole Rodriguez MD - Last Filed: 12/10/22 13:09> Radiologist's impression: Patient: DES SHIRLEY Facility:?[facility] Patient ID:?[id number] Site Patient ID:?[id number]. Site :?[id number] Study:?CT Head WO-12/10/2022 7:57:58 AM Ordering Physician:Erik Davidson Final Report: INDICATION: Headache TECHNIQUE: Scanning of the head was performed without IV contrast material. Coronal and sagittal reconstructions were obtained. COMPARISON: Head CT of 11/27/2022 FINDINGS: No intracranial hemorrhage is demonstrated. No positive mass effect is evident. Differentiation between the woods matter and white matter is preserved. A resolving right parietal scalp hematoma is demonstrated. There is nonspecific decreased attenuation in the cerebral white matter which is most likely due to aging/chronic microvascular ischemic disease. The ventricles and other subarachnoid spaces are within normal limits for the patient`s age. No calvarial abnormality is evident. The visualized paranasal and mastoid sinuses are clear. IMPRESSION: 1. No acute abnormality demonstrated. 2. Nonspecific cerebral white matter disease, most likely due to aging/chronic microvascular ischemic disease. 3. Resolving right parietal scalp hematoma. Please note that all CT scans at this facility use dose modulation, iterative reconstruction, and/or weight-based dosing when appropriate to reduce radiation dose to as low as reasonably achievable. Dictated by Elkin Nguyen MD @ 12/10/2022 8:41:37 AM (Electronic Signature) <Nicole Perera MD - Last Filed: 12/10/22 13:09> Discharge Plan Discharge Clinical Impression: Occipital neuralgia of right side <Stuart Comer MD - Last Filed: 12/12/22 07:37> Patient Disposition: Home, Self-Care <Stuart Comer MD - Last Filed: 12/12/22 07:37> Condition: Stable <Stuart Comer MD - Last Filed: 12/12/22 07:37> Instructions: Acute Headache (ED) <Stuart Comer MD - Last Filed: 12/12/22 07:37> Additional Instructions: I suspect you have occipital neuralgia which is 1 disorder that can cause headaches. Ice to the right back of the head where you are getting the pain, can do 20 minutes on, 10 minutes off. Tylenol 1000 mg 3 times a day baseline for pain. Have written for a muscle relaxant to take scheduled for few days and see if this might help. Otherwise, follow up in clinic next week as soon as you can with your primary care provider. You may ultimately need referral to Neurology and this can be done by your primary provider. <Stuart Comer MD - Last Filed: 12/12/22 07:37> Activity Level: Activity as Tolerated <Stuart Comer MD - Last Filed: 12/12/22 07:37> Activity as Tolerated <Nicole Perera MD - Last Filed: 12/10/22 13:09> Prescriptions: New tizanidine 4 mg tablet 4 mg PO Q8H PRN (Reason: muscle spasticity) Qty: 15 0RF No Action cholecalciferol (vitamin D3) 125 mcg (5,000 unit) tablet 5,000 unit PO DAILY glucosamine-chondroitin 250-200 mg tablet 1 tab PO BID calcium carbonate 600 mg calcium (1,500 mg) tablet 600 mg PO DAILY cyanocobalamin (vitamin B-12) 1,000 mcg tablet 1,000 mcg PO DAILY Centrum Silver Women 8 mg iron-400 mcg-300 mcg tablet 1 tab PO QDAY (DME) L mastectomy bra 0 .Route .MEDSUPPLY apixaban 5 mg tablet 5 mg PO BID Myrbetriq 50 mg tablet extended release 24 hr 50 mg PO QDAY Hold Instructions: Patient trying new medication metoprolol succinate 100 mg tablet extended release 24 hr 100 mg PO QDAY valsartan 160 mg tablet 160 mg PO BID Qty: 180 3RF sertraline 100 mg tablet 100 mg PO DAILY Qty: 90 3RF atorvastatin 20 mg tablet 20 mg PO QDAY Qty: 90 3RF alendronate 70 mg tablet 70 mg PO .Every 7 Days Qty: 12 4RF gabapentin 800 mg tablet 800 mg PO TID Qty: 360 3RF Gemtesa 75 mg tablet 75 mg PO QDAY <Stuart Comer MD - Last Filed: 12/12/22 07:37> Follow Up/Referrals: Lina Armstrong MD [Primary Care Provider] - <Stuart Comer MD - Last Filed: 12/12/22 07:37> Stand Alone Forms: [facility] Info Instructions <Stuart Comer MD - Last Filed: 12/12/22 07:37> Procedures Additional Procedures Procedure name: Right occipital area injection <Nicole Perera MD - Last Filed: 12/10/22 13:09> Pre procedure diagnosis: Same <Nicole Perera MD - Last Filed: 12/10/22 13:09> Post procedure diagnosis: Right occipital stabbing headache <Nicole Perera MD - Last Filed: 12/10/22 13:09> Site marking: site marked <Nicole Perera MD - Last Filed: 12/10/22 13:09> Verification/time out: correct patient, correct site and correct procedure <Nicole Rodriguez MD - Last Filed: 12/10/22 13:09> Estimated blood loss (if any): none <Nicole Perera MD - Last Filed: 12/10/22 13:09> Specimen sent: No <Nicole Perera MD - Last Filed: 12/10/22 13:09> Conclusion: patient tolerated procedure <Nicole Perera MD - Last Filed: 12/10/22 13:09> Additional comments: Alcohol was used as a prep. Patient's point of maximal tenderness over the right occipital area was identified and marked, 5 mL of plain 1% lidocaine were infiltrated in the area. There was no bleeding, she tolerated the procedure well. We will see if this does help her at all. <Nicole Rodriguez MD - Last Filed: 12/10/22 13:09>
--- NOTE | 2022-12-10 07:38 | CRLHL7_ITS ---
For Patients: As a result of the Century Cures Act, medical imaging exams and procedure reports are released immediately into your electronic medical record. You may view this report before your referring provider. If you have questions, please contact your health care provider. INDICATION: Headache TECHNIQUE: Scanning of the head was performed without IV contrast material. Coronal and sagittal reconstructions were obtained. COMPARISON: Head CT of 11/27/2022 FINDINGS: No intracranial hemorrhage is demonstrated. No positive mass effect is evident. Differentiation between the woods matter and white matter is preserved. A resolving right parietal scalp hematoma is demonstrated. There is nonspecific decreased attenuation in the cerebral white matter which is most likely due to aging/chronic microvascular ischemic disease. The ventricles and other subarachnoid spaces are within normal limits for the patient`s age. No calvarial abnormality is evident. The visualized paranasal and mastoid sinuses are clear. IMPRESSION: 1. No acute abnormality demonstrated. 2. Nonspecific cerebral white matter disease, most likely due to aging/chronic microvascular ischemic disease. 3. Resolving right parietal scalp hematoma. Please note that all CT scans at this facility use dose modulation, iterative reconstruction, and/or weight-based dosing when appropriate to reduce radiation dose to as low as reasonably achievable. Dictated by Elkin Nguyen MD @ 12/10/2022 8:41:37 AM (Electronically Signed)
[2022-12-10] MEDS: 0.9 % SODIUM CHLORIDE 1000 ml 1,000 ML IV (08:00)
[2022-12-10] MEDS: ONDANSETRON 2 MG/ML inj 4 MG IVP (08:10)
[2022-12-10] MEDS: diphenhydrAMINE 25 MG in 0.9 % SODIUM CHLORIDE 100 ml 100 ML 402 MG IVPB (08:10)
--- NOTE | 2022-12-10 08:26 | CRLHL7_ITS ---
For Patients: As a result of the Century Cures Act, medical imaging exams and procedure reports are released immediately into your electronic medical record. You may view this report before your referring provider. If you have questions, please contact your health care provider. INDICATION: Low back pain post fall TECHNIQUE: Volumetric helical scanning of the lumbar spine was performed without contrast material. Sagittal and coronal reconstructions were also obtained. COMPARISON: Today`s pelvic CT. FINDINGS: No fracture or paraspinous hematoma is demonstrated. The disc spaces are well maintained. Advanced facet degenerative changes are demonstrated from L3-S1 and mild facet degenerative changes noted otherwise. A degenerative grade 1 L4 anterolisthesis is noted. No curvature abnormality is demonstrated. Chronic disc bulging at L3-4 is demonstrated along with facet and ligamentum flavum hypertrophy bilaterally producing mild to moderate degenerative spinal stenosis. IMPRESSION: 1. Negative for acute traumatic abnormality. 2. Degenerative changes, as above, including mild to moderate degenerative spinal stenosis at L3-4. Please note that all CT scans at this facility use dose modulation, iterative reconstruction, and/or weight-based dosing when appropriate to reduce radiation dose to as low as reasonably achievable. Dictated by Elkin Nguyen MD @ 12/10/2022 9:35:25 AM (Electronically Signed)
--- NOTE | 2022-12-10 08:26 | CRLHL7_ITS ---
For Patients: As a result of the Century Cures Act, medical imaging exams and procedure reports are released immediately into your electronic medical record. You may view this report before your referring provider. If you have questions, please contact your health care provider. INDICATION: Pelvic pain post fall. TECHNIQUE: Volumetric helical scanning of the pelvis was performed without contrast material. Coronal and sagittal reconstructions were obtained. COMPARISON: Today`s lumbar spine CT FINDINGS: No hip or pelvic fracture is identified. Intact left hip prosthesis. No subluxation/diastasis is evident. No obvious soft tissue injury/hematoma is demonstrated. The visualized bowel is unremarkable except for colonic diverticulosis. The uterus and ovaries are grossly negative. No lymphadenopathy is evident. No free fluid is noted. IMPRESSION: Negative for fracture and other acute traumatic abnormality. Please note that all CT scans at this facility use dose modulation, iterative reconstruction, and/or weight-based dosing when appropriate to reduce radiation dose to as low as reasonably achievable. Dictated by Elkin Nguyen MD @ 12/10/2022 9:30:04 AM (Electronically Signed)
[2022-12-10] MEDS: ACETAMINOPHEN 500 MG TABLET 1000 MG PO (08:35)
[2022-12-10] MEDS: MORPHINE 2 MG/ML inj IVP (09:14)
[2022-12-10] MEDS: LIDOCAINE 1% 5 ml (pf) 5 ML VIAL INJECTION (09:45)
--- NOTE | 2022-12-10 10:26 | PC.NURSE ---
pt to bathroom with standby assist, took daily meds as instructed by Dr Costello, daughter brought them form home
[2022-12-10] MEDS: OXYCODONE 5 MG TABLET PO (11:30)
[2022-12-10] MEDS: TIZANIDINE HCL 4 MG TABLET PO (12:43)
== END 2022-12-10 13:53 | disposition home or self-care (01) ==
PROVIDERS: Emergency Provider Internal Medicine; PCP Internal Medicine
DX: M54.81 Occipital neuralgia (principal)
CPT/HCPCS: 64405; 70450; 72131; 72192; 96365; 96375; 99283; 99284; A9270; J1200; J2270; J2405; J7030

== ENCOUNTER 2023-01-12 12:45 | Outpatient (CLI) | payer MEDICARE, SELFPAY | END 2023-01-12 12:46 | disposition home or self-care (01) | LOC: RAD 12:46 | PROVIDERS: PCP Internal Medicine; Visit Provider Internal Medicine | DX: R01.1 Cardiac murmur, unspecified (principal); I51.7 Cardiomegaly; I34.0 Nonrheumatic mitral (valve) insufficiency; I35.1 Nonrheumatic aortic (valve) insufficiency; I07.1 Rheumatic tricuspid insufficiency | CPT/HCPCS: 93306 ==

== ENCOUNTER 2023-05-30 09:30 | Outpatient (CLI) | payer MEDICARE, SELFPAY ==
--- OUTSIDE RECORDS SUMMARY | 2023-05-31 06:15 | XMS_ITS | Clinical Summary ---
Author Name Unknown Organization [facility] Address [place], [place] [address] Care Team Providers Care Assistant Department Manager Name Role Phone Lina Armstrong MD Primary Care Provider [phone] Allergies Active Allergy Reactions Criticality Noted Date Comments Bacitracin *Unknown Medium 11/10/2017 Intermediate 08/17/2017 per [facility] info Erythromycin *Unknown Medium 11/10/2017 Intermediate reaction per [facility] 08/17/2017 Latex Throat Swelling/Closing High 05/26/2015 Other reaction(s): RASH, effects breathing Nickel Rash 07/11/2018 Medications Medication Sig Dispensed Refills Start Date End Date Status multivitamin (MVI) tablet Take 1 tablet by mouth once daily. 0 05/26/2015 Active melatonin (MELATIN) 3 mg tablet Take 5 mg by mouth at bedtime. 0 11/30/2015 Active WalkerIndications: Neuropathy Rolling Walker with chair 1 Device 0 03/14/2016 Active Breast ProsthesisIndicati ons:Malignant neoplasm of female breast, unspecified laterality, unspecified site of breast For personal use. 1 Device 0 03/14/2016 Active sertraline (ZOLOFT) 50 mg tabletIndications: Situational anxiety TAKE 1 TABLET BY MOUTH EVERY DAY 90 tablet 2 04/25/2017 Active valsartan (DIOVAN) 160 mg tabletIndications: Hypertension, unspecified type Take 1 tablet by mouth once daily in the evening. 0 07/11/2018 Active Glucosamine-Chondr oitin (OSTEO BI-FLEX) 250-200 mg tablet Take by mouth once daily. 0 07/11/2018 Active magnesium 250 mg tab Take 1 tablet by mouth once daily. 0 07/11/2018 Active pravastatin (PRAVACHOL) 20 mg tablet Take 20 mg by mouth at bedtime. 3 07/04/2018 Active acetaminophen (TYLENOL) 325 mg tabletIndications: Pacemaker Take 2 tablets by mouth every 4 hours if needed (For mild pain.). Max acetaminophen dose: 4000mg in 24 hrs. 0 08/04/2018 Active calcium carbonate-cholecal ciferol, 600mg-200 units, (CALCIUM 600 + D,3,) tablet Take 1 tablet by mouth once daily with a meal. 0 01/13/2020 Active gabapentin (NEURONTIN) 800 mg tabletIndications: Peripheral sensory neuropathy Take 1 Tablet (800 mg) by mouth 3 times daily. 0 09/28/2021 Active mirabegron EXTENDED-release (MYRBETRIQ) 50 mg tablet Take 1 Tablet (50 mg) by mouth once daily. 0 2022 Active metoprolol succinate (Toprol XL) 100 mg Sustained-Release tabletIndications: Paroxysmal atrial fibrillation (HC) Take 1 Tablet (100 mg) by mouth once daily. 90 Tablet 3 2022 Active Eliquis 5 mg tabletIndications: Persistent atrial fibrillation (HC),Paroxysmal atrial fibrillation (HC) TAKE 1 TABLET(5 MG) BY MOUTH TWICE DAILY 14 Tablet 0 08/15/2022 Active apixaban (Eliquis) 5 mg tabletIndications: Paroxysmal atrial fibrillation (HC) Take 1 Tablet (5 mg) by mouth two times daily. 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 05/28/2015 Encounters Date Type Department Care Team Description 05/30/2023 Travel from Last 3 Months Immunizations Name Administration Dates Next Due Influenza, Inactivated IIV3 (Age 65+ Years) Preserv Free 03/02/2017 Family History Medical History Relation Name Comments Unknown Father Unknown Mother Relation Name Status Comments Father Mother Social History Tobacco Use Types Packs/Day Years Used Date Smoking Tobacco: Never Smokeless Tobacco: Never Tobacco Cessation:Counseling Given: Yes Alcohol Use Standard Drinks/Week Comments Yes 5 (1 standard drink = 0.6 oz pur e alcohol) Social Connections Answer Date Recorded Frequency of Communication with Friends and Fami ly Not on file 05/22/2021 Financial Resource Strain Answer Date R ecorded Difficulty of Paying Living Expenses Not on file 05/22/2021 Difficulty of Paying Living Expenses Not on file 05/22/2021 Sex and Gender Information Value Date Recorded Sex Assigned at Not on file Gender Identity Not on file Sexual Orientation Not on file Obstetrics History Last Filed Vital Signs Vital Sign Reading Time Taken Comments Blood Pressure 165/79 2022 3:47 PM GAMBLING BROKER Pulse 78 2022 3:47 PM [employer]ING [employer]ER Temperature 36.8 ??C (98.3 ??F) 08/04/2018 7:37 AM CD T Respiratory Rate 16 01/31/2020 10:4 7 AM CDT Oxygen Saturation 98% 2022 3:47 PM GAMBLING BROKER Inhaled Oxygen Concentration - - Weight 107.1 kg (236 lb 1.6 oz) 2022 3:47 PM GAMBLING BROKER Height 174 cm (5' 8.5) 09/28/2021 12:5 0 PM CDT Body Mass Index 35.37 09/28/2021 12:50 PM CDT Plan of Treatment Upcoming Encounters Date Type Department Care Team (Late st Contact Info) Description 07/11/2023 2:00 PM GAMBLING BROKER Office Visit [facility] [address] [place] [phone] Kali Del Rio MD [address] [place] [address] 09/28/2023 Cardiac Device Check [facility] [place] [phone] Health Maintenance Due Date Last Done Comments Zoster (shingles) series for age 50+ (1 of 2) 1985 Medicare Wellness for age 65+ 2000 Depression screening for age 12+ 03/14/2017 03/14/20 16, 11/30/2015 BMI (ht and wt on same day) for age 18+ 09/28/2022 09/28/2021, 01/13/2020, 07/11/2018, Additional history exists Influenza for age 65+ 01/20/2023 03/02/2017 , 02/10/2016, 02/23/2015 Tetanus booster 11/02/2023 11/01/2013 Tdap Completed 11/01/2013 DEXA/DXA scan for age 65+ Completed 2013 [facility] Pneumococcal series for age 65+ Completed 4, 05/12/2000 COVID-19 vaccine series Completed 03/24/20 23, 03/15/2022, 10/05/2021, Additional history exists Advance Directives Latest Code Status on File Code Status Date Activated Date Inactivated Comments Full Code 08/03/2018 5:43 PM 08/04/2018 2:25 PM Question Answer Comments Code Status Discussion: Not Discussed Care Teams Assistant Department Manager Relationship Specialty Start Date End Date Lina Armstrong MD [address] [place] [address] [facility] [place] [address] PCP - General Internal Medicine 09/08/21
--- OUTSIDE RECORDS SUMMARY | 2023-05-31 06:15 | XMS_ITS | Encounter Summary ---
Author Name Unknown Organization [facility] Address [address] [place] [address] Care Team Providers Care Property Administrator Name Role Phone Unavailable Primary Care Provider Unavailabl e Reason for Visit * Reason Comments Procedure Encounter Details Date Type Department Care Team Description 08/08/2022 8:30 AM CDT Procedure Visit [facility] - Urology [address] [place] [address] Procedure Social History Tobacco Use Types Packs/Day Years Used Date Smoking Tobacco: Never Assessed Sex and Gender Information Value Date Recorded Sex Assigned at Not on file Gender Identity Not on file Sexual Orientation Not on file documented as of this encounter Patient Instructions * Patient Instructions* Radha Martinez PA-C - 08/08/2022 8:30 AM CDT Dear Airam, It was my pleasure seeing you today in the urology clinic for urodynamic testing. Below is a brief summary of your study results and of our anticipated plan moving forward. 1) Urodynamic test results. Fortunately, with the Myrbetriq bladder medication on board your bladder looks very normal. Yay! You are holding 430 mL and the pressures inside of your bladder are nice and low, which is normal. Once the bladder is full, your bladder strongly contracts and you do an adequate job emptying. Overall, this is good news! I suspect that had you NOT been taking Myrbetriq, you likely would have demonstrated repeated bladder spasms or early contractions. Typically bladder spasms are what cause sudden urinary urgency and urge incontinence. Myrbetriq is like a muscle relaxer for the bladder so it's job is to reduce the intensity and frequency of bladder spasms - which is seems like it's doing! 2) Options moving forward. - We could continue Myrbetriq 25 mg and increase your blood pressure medications to combat the elevated numbers. - We could try Gemtesa (also called vibegron) which is a relative of Myrbetriq BUT it doesn't affect blood pressure; Gemtesa is the newest bladder medication on the market. It tends to work well and is well tolerated but sometimes it's expensive. I can see that your insurance company prefers to payfor Myrbetriq. The good news is that we can try Gemtesa for free as I have free samples in clinic. This is a once daily pill, it doesn't matter what time of day you take it but try to be consistent. Typically 2-3 weeks is an adequate trial of this drug. If is works, my nursing team can write a letter to your insurance stating why we were unable to continue the formulary preferred Myrbetriq. - We could consider local treatment to the bladder muscle with bladder Botox injections. This is done by a urologic surgeon in clinic or the ambulatory surgery center. Botox is effective but it's temporary, typically lasting about 6 months when we inject it into the bladder. The downside of Botox is that we don't want to inject too much otherwise you go from peeing and leaking all the time to being unable to pee at all and that's a bummer! 3) Gemtesa. Let's start by trying the Gemtesa samples. Please call my nurse line with a symptom update in 2-3 weeks. My nurse line is [phone]. I'll stay tuned!! Wishing you all the best! Sincerely, Ely Martinez PA-C Department of Urologic Surgery documented in this encounter Progress Notes * Radha Martinez PA-C - 08/08/2022 8:30 AM CDT URODYNAMIC (UDS) BLADDER FUNCTION TEST RESULTS Pre-test Diagnoses: - Urinary urgency. - Urinary frequency. - Urge urinary incontinence (UUI), primary. - Stress urinary incontinence (SLIME), secondary. - Nocturnal enuresis. - Unawareness urinary incontinence. - Normal pressure hydrocephalus (NPH). - History of breast cancer. Therapies Tried: - Maintained on Myrbetriq 50 mg. - Initial PVR 0 mL. Pre-Test Uroflowmetry: - Unable to void for pre-test uroflowmetry. - Bladder volume as measured via catheter was 160 mL. - Urine dip - nitrites, - leuks. Description of Procedure: - 7F vesical catheter in urethra. - 7F abdominal catheter in rectum. - 2 EMG patches placed on the anal verge, grounding patch on knee. - Room temperature NS instilled @ 50 mL/minute. - Last took Myrbetriq this morning. Filling Phase: - First sensation: 170 mL. - First desire: 189 mL. - Strong desire: 267 mL. - Maximum functional bladder capacity: 433 mL. - Detrusor instability: None. - Compliance: Good, filling vesical pressures climb modestly throughout filling. - Continence: No stress leak at Pabd 105 cm H2O at a bladder volume of 370 mL. - EMG: Grossly concordant during filling. Voiding Phase: - Terminal detrusor contraction: 90 cm H2O; unable to void on Son[place] chair. Test equipment removedand patient was allowed to void in the private restroom. - Voided volume: Unknown; as soon as Airam stood up and started walking to the bathroom she started leaking. Most of the urine missed the urine collection hat. - Qmax: N/A. - Qavg: N/A. - PVR: ~80 mL. - EMG: N/A. - ICS nomogram: N/A. - UTI prophylaxis: A single 100 mg nitrofurantoin capsule was provided post-test. Assessment: Normal functional bladder capacity; 433 mL. Good bladder compliance; filling vesical pressures climb modestly throughout the filling phase. Stepwise sensation of bladder filling; first sensation 170 mL, first desire 189 mL, strong desire 267 mL. No stress leak at Pabd 105 cm H2O at a bladder volume of 370 mL. Adequate bladder emptying; unable to void pre-test at 160 mL, post-test PVR ~80 mL. Plan/Recommendations: - Fortunately, Myrbetriq 25 mg has been incredibly helpful. Unfortunately, it's increased Airam's blood pressure. Options moving forward including continuing Myrbetriq and adjusting BP meds, trying Gemtesa and then seeing if we can get insurance to cover it or considering 3rd line OAB therapies such as bladder Botox. - We're in agreement with trying Gemtesa 75 mg; patient to stop Myrbetriq, initiate Gemtesa samplesand call my nurse line with a symptom update in 2-3 weeks. - Detailed typed AVS provided. Daughter will fax this to Airam's PCP who is outside of the [facility] system. - F/U in 6 months or certainly sooner prn. Sincerely, Ely Martinez PA-C Department of Urologic Surgery documented in this encounter Plan of Treatment Not on file documented as of this encounter Procedures Procedure Name Priority Date/Time Associated Diagnosis Comments URO COMPLEX CYSTOMETROGRAM VOIDING PRESSURE STUDY Routine 08/08/2022 10:14 AM CDT Urinary incontinence, mixed Urinary urgency Urinary frequency Urge incontinence Stress incontinence Nocturnal enuresis NPH (normal pressure hydrocephalus) ([facility]) History of breast cancer URO VOIDING PRESS STUDY INTRA-ABDOMINAL Routine 08/08/2022 10:14 AM CDT Urinary incontinence, mixed Urinary urgency Urinary frequency Urge incontinence Stress incontinence Nocturnal enuresis NPH (normal pressure hydrocephalus) ([facility]) History of breast cancer URO UROFLOW CLINIC Routine 08/08/2022 10 :14 AM CDT Urinary incontinence, mixed Urinary urgency Urinary frequency Urge incontinence Stress incontinence Nocturnal enuresis NPH (normal pressure hydrocephalus) ([facility]) History of breast cancer URO PATCH EMG Routine 08/08/2022 10:14 AM CDT Urinary incontinence, mixed Urinary urgency Urinary frequency Urge incontinence Stress incontinence Nocturnal enuresis NPH (normal pressure hydrocephalus) ([facility]) History of breast cancer URO COMPLEX CYSTOMETROGRAM Routine 08/08 10:14 AM CDT Urinary incontinence, mixed Urinary urgency Urinary frequency Urge incontinence Stress incontinence Nocturnal enuresis NPH (normal pressure hydrocephalus) ([facility]) History of breast cancer documented in this encounter Visit Diagnoses Diagnosis Urinary incontinence, mixed- Primary Mixed incontinence urge and stress (male)(female) Urinary urgency Urgency of urination Urinary frequency Urge incontinence Stress incontinence Female stress incontinence Nocturnal enuresis NPH (normal pressure hydrocephalus) ([facility]) Idiopathic normal pressure hydrocephalus ([facility]) History of breast cancer Personal history of malignant neoplasm of breast documented in this encounter
--- OUTSIDE RECORDS SUMMARY | 2023-05-31 06:15 | XMS_ITS | Encounter Summary ---
Author Name Unknown Organization [facility] Address [address] [place] [address] Care Team Providers Care Hemstitcher Name Role Phone Unavailable Primary Care Provider Unavailabl e Encounter Details Date Type Department Care Team Description 09/09/2022 Notes/Orders [facility] [address] [address] [address] [place] [address] Radha Martinez PA-C [address] [place] [address] Urinary incontinence, mixed (Primary Dx); Urinary frequency Social History Tobacco Use Types Packs/Day Years Used Date Smoking Tobacco: Never Smokeless Tobacco: Never Alcohol Use Standard Drinks/Week Comments Yes 5 (1 standard drink = 0.6 oz pur e alcohol) Sex and Gender Information Value Date Recorded Sex Assigned at Not on file Gender Identity Not on file Sexual Orientation Not on file documented as of this encounter Plan of Treatment Not on file documented as of this encounter Visit Diagnoses Diagnosis Urinary incontinence, mixed- Primary Mixed incontinence urge and stress (male)(female) Urinary frequency documented in this encounter
--- OUTSIDE RECORDS SUMMARY | 2023-05-31 06:15 | XMS_ITS | Encounter Summary ---
Author Name Unknown Organization [facility] Address [address] [address] Care Team Providers Care Natural Resources Engineer Name Role Phone Unavailable Primary Care Provider Unavailabl e Reason for Visit * Reason Comments Med Request Encounter Details Date Type Department Care Team Description 07/14/2022 Telephone [facility] [address] [address] [address] [place] [address] Radha Martinez PA-C [address] [place], [place] [id number] Med Request Social History Tobacco Use Types Packs/Day Years Used Date Smoking Tobacco: Never Assessed Sex and Gender Information Value Date Recorded Sex Assigned at Not on file Gender Identity Not on file Sexual Orientation Not on file documented as of this encounter Nursing Notes * Leelee Carter RN - 07/14/2022 8:31 AM CST Pt calls in requesting a prescription for Myrbetriq 50 mg to be sent to [facility] in [place]. She started samples on 06/02/2022. Future appointment scheduled on 08/08/2022. Order pended for 1 month just in case she does not continue after her appointment in July. R FLOOR TECHNICIAN documented in this encounter Plan of Treatment Not on file documented as of this encounter Visit Diagnoses Diagnosis Urinary incontinence, unspecified type- Primary OAB (overactive bladder) Hypertonicity of bladder Urinary urgency Urgency of urination Urinary frequency documented in this encounter
--- OUTSIDE RECORDS SUMMARY | 2023-05-31 06:15 | XMS_ITS | Encounter Summary ---
Author Name Unknown Organization [facility] Address [address] [place] [address] Care Team Providers Care Car Rental Clerk Name Role Phone Unavailable Primary Care Provider Unavailabl e Reason for Visit * Reason Comments CONSULT * Consult/Transfer Care (Routine) - New Request Specialty Diagnoses / Procedures Referred By Contac t Referred To Contact Diagnoses NPH (normal pressure hydrocephalus) (HRC) Lina Armstrong MD [address] [place] [address] Referral ID Status Reason Start Date Expiration Date V isits Requested Visits Authorized [id number] New Request 03/16/2022 06/15/2023 1 1 Encounter Details Date Type Department Care Team Description 08/11/2022 3:05 PM CDT Office Visit [facility] [address] [place], [place] [id number] Kalin Pittman MD [address] [place] [address] Polyneuropathy (Primary Dx); Imbalance; Pituitary abnormality (HRC) Social History Tobacco Use Types Packs/Day Years Used Date Smoking Tobacco: Never Smokeless Tobacco: Never Tobacco Cessation:Counseling Given: Not Answered Alcohol Use Standard Drinks/Week Comments Yes 5 (1 standard drink = 0.6 oz pur e alcohol) Sex and Gender Information Value Date Recorded Sex Assigned at Not on file Gender Identity Not on file Sexual Orientation Not on file documented as of this encounter Last Filed Vital Signs Vital Sign Reading Time Taken Comments Blood Pressure 181/85 08/11/2022 3:28 PM CDT Pulse 69 08/11/2022 3:28 PM CDT Temperature - - Respiratory Rate 20 08/11/2022 3:28 PM CDT Oxygen Saturation - - Inhaled Oxygen Concentration - - Weight 106.1 kg (234 lb) 08/11/2022 3:28 PM CDT Height 172.7 cm (5' 8) 08/11/2022 3:28 PM CDT Body Mass Index 35.58 08/11/2022 3:28 PM CDT documented in this encounter Progress Notes * Kalin Pittman MD - 08/11/2022 3:05 PM CDT SUBJECTIVE: 08/11/2022: This patient is an 87-year-old woman seen for neurologic evaluation today accompanied byher daughter. She has longstanding balance issues and concern was raised for normal pressure hydrocephalus based on imaging. She does have a prior history of neuropathy as well. She was evaluated at [facility] with gait evaluations before and after large volume lumbar puncture. She did not show any improvement in her gait after the lumbar puncture, and LICENSED SALES PRODUCER shunt was not recommended. She did have some falls recently, on 1 occasion she was turning to get a towel after a shower and then found herself on the ground. On another occasion she fell when she went behind the bed, and needed help to getup. She also has developed some urinary incontinence. She has some forgetfulness, but no report of repeating questions or statements. She describes more word-finding difficulty. Of note, CSF was tested for Alzheimer disease markers and was negative. Previous EMG did show neuropathy 15 years ago. Outpatient Medications Prior to Visit Medication Sig Dispense Refill alendronate (FOSAMAX) 70 MG tablet Take 1 Tablet (70 mg) by mouth once every week. atorvastatin (LIPITOR) 20 MG tablet Take 1 Tablet (20 mg) by mouth daily. cholecalciferol (VITAMIN D3) 25 MCG (1000 UT) tablet Take 1 Tablet (1,000 Units) by mouth. ELIQUIS 5 MG tablet Take 1 Tablet (5 mg) by mouth two times a day. gabapentin (NEURONTIN) 800 MG tablet Take 1 Tablet (800 mg) by mouth three times a day. MELATONIN OR Take 10 mg by mouth daily at bedtime. metoprolol succinate (TOPROL XL) 100 MG 24 hour release tablet Take 1 Tablet (100 mg) by mouth daily. mirabegron (MYRBETRIQ) 50 MG 24 hour release tablet Take 1 Tablet (50 mg) by mouth daily. 30 [id number] Misc Natural Products (GLUCOSAMINE CHOND DOUBLE STR OR) Take 1 Tablet by mouth. Multiple Vitamins-Minerals (CERTAVITE SENIOR/ANTIOXIDANT) TABS Take 1 Tablet by mouth daily. sertraline (ZOLOFT) 100 MG tablet Take 1 Tablet (100 mg) by mouth daily. valsartan (DIOVAN) 160 MG tablet Take 1 Tablet (160 mg) by mouth two times a day. Vibegron 75 MG TABS Take 1 Tablet (75 mg) by mouth daily. 56 Tablet 0 vitamin B-12 (AKA: CYANOCOBALAMIN) 1000 MCG tablet Take 1 Tablet (1,000 mcg) by mouth daily. No facility-administered medications prior to visit. No past medical history on file. Hypertension, neuropathy, high cholesterol OBJECTIVE: BP (!) 181/85 (BP Location: Right Arm, BP Cuff Size: Large) Pulse 69 Resp 20 Ht 5' 8 (1.727 m) Wt 234 lb (106.1 kg) BMI 35.58 kg/m?? GEN: NAD, pleasant, cooperative CVS: RRR, no JV distention CHEST: No signs of distress, on room air NEURO: MENTAL STATUS: AAOx3 LANG/SPEECH: Fluent, no dysarthria. She speaks quite well during our visit today. CRANIAL NERVES: II: Pupils equal and reactive, no RAPD III, IV, : EOM intact, no gaze preference or deviation VII: no facial asymmetry VIII: normal hearing to speech MOTOR: 5/5 in both upper and lower extremities REFLEXES: 4/5 strength in the hip flexors bilaterally, otherwise strength is good SENSORY: Vibration sensation is absent at the toes on both sides. Pinprick sensation diminished to the mid calf COORD: Normal finger to nose, no tremor, no dysmetria GAIT: Gait is slightly wide-based, she benefits from the cane in terms of balance ASSESSMENT & PLAN: Imbalance due to polyneuropathy: I went over the [facility] records in some detail. As noted, she did not show any improvement in her gaitafter large volume lumbar puncture, so LICENSED SALES PRODUCER shunt is not recommended. I concurred with the [facility] conclusions in that regard. I think the neuropathy certainly accounts for much of her imbalance, and we discussed the physiology of that. She is doing physical therapy and I recommended she continue with that as well as assistive devices (cane and also walker for longer distance). She does havea little bit of hip flexor weakness and likely would benefit from some strengthening as well. The urinary incontinence is new, I do not have a clear explanation for that, she is seeing Urology for that soon. She is welcome to come back and see us if there are new questions or concerns. She was concerned about a rapid decline, but I do not see any indication that that is looking over her. I was happy to reassure her about that. 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
--- OUTSIDE RECORDS SUMMARY | 2023-05-31 06:15 | XMS_ITS | Encounter Summary ---
Author Name Unknown Organization [facility] Address [address] [place] [address] Care Team Providers Care Instructor Military Science Name Role Phone Unavailable Primary Care Provider Unavailabl e Reason for Visit * Reason Comments Outside Records on File Encounter Details Date Type Department Care Team Description 06/16/2022 Telephone [facility] [address] Urology [address] [place] [address] Radha Martinez, PAArline [address] [place], [place] [id number] Outside Records on File Social History Tobacco Use Types Packs/Day Years Used Date Smoking Tobacco: Never Assessed Sex and Gender Information Value Date Recorded Sex Assigned at Not on file Gender Identity Not on file Sexual Orientation Not on file documented as of this encounter Nursing Notes * Leelee Carter RN - 06/16/2022 7:49 AM CST Records from [facility] sent to scan doc. SHED GOODS STOCK CLERK documented in this encounter Plan of Treatment Not on file documented as of this encounter Visit Diagnoses Not on filedocumented in this encounter
--- OUTSIDE RECORDS SUMMARY | 2023-05-31 06:15 | XMS_ITS | Clinical Summary ---
Author Name Unknown Organization [facility] Address [address] [place] [address] Care Team Providers Care Ticket Collector Name Role Phone Unavailable Primary Care Provider Unavailabl e Source Comments You are receiving this document as you are listed as the primary care provider,follow-up provider, or the patient has been referred to you for consultation.This is in compliance with the Medicare and[facility] EHR Incentive Program,which states Providers who transition their patient to another setting of careor provider of care or refers their patient to another provider of care shouldprovide summary care record for each transition of care or referral. [employer] Allergies Active Allergy Reactions Criticality Noted Date Comments Latex Other, see comments High 08/11/2022 Throat swelling Medications Medication Sig Dispensed Refills Start Date End Date Status mirabegron (MYRBETRIQ) 50 MG 24 hour release tabletIndications:Uri nary incontinence, unspecified type,OAB (overactive bladder),Urinary urgency,Urinary frequency Take 1 Tablet (50 mg) by mouth daily. 30 Tablet 11 07/14/2022 07/14/2023 Active Vibegron 75 MG TABSIndications:Urina ry incontinence, mixed,Urinary urgency,Urinary frequency,Urge incontinence Take 1 Tablet (75 mg) by mouth daily. 56 Tablet 0 08/08/2022 Active sertraline (ZOLOFT) 100 MG tablet Take 1 Tablet (100 mg) by mouth daily. 0 08/02/2022 Active valsartan (DIOVAN) 160 MG tablet Take 1 Tablet (160 mg) by mouth two times a day. 0 06/07/2022 Active metoprolol succinate (TOPROL XL) 100 MG 24 hour release tablet Take 1 Tablet (100 mg) by mouth daily. 0 2022 Active ELIQUIS 5 MG tablet Take 1 Tablet (5 mg) by mouth two times a day. 0 08/05/2022 Active alendronate (FOSAMAX) 70 MG tablet Take 1 Tablet (70 mg) by mouth once every week. 0 08/07/2022 Active atorvastatin (LIPITOR) 20 MG tablet Take 1 Tablet (20 mg) by mouth daily. 0 06/19/2022 Active gabapentin (NEURONTIN) 800 MG tablet Take 1 Tablet (800 mg) by mouth three times a day. 0 05/19/2022 Active cholecalciferol (VITAMIN D3) 25 MCG (1000 UT) tablet Take 1 Tablet (1,000 Units) by mouth. 0 Active Multiple Vitamins-Minerals (CERTAVITE SENIOR/ANTIOXIDANT) TABS Take 1 Tablet by mouth daily. 0 Active Misc Natural Products (GLUCOSAMINE CHOND DOUBLE STR OR) Take 1 Tablet by mouth. 0 Active MELATONIN OR Take 10 mg by mouth daily at bedtime. 0 Active vitamin B-12 (AKA: CYANOCOBALAMIN) 1000 MCG tablet Take 1 Tablet (1,000 mcg) by mouth daily. 0 Active Vibegron 75 MG TABSIndications:Urina ry incontinence, mixed,Urinary frequency Take 1 Tablet (75 mg) by mouth daily. 90 Tablet 3 09/09/2022 Active Active Problems No known active problems Social History Tobacco Use Types Packs/Day Years Used Date Smoking Tobacco: Never Smokeless Tobacco: Never Tobacco Cessation:Counseling Given: Not Answered Alcohol Use Standard Drinks/Week Comments Yes 5 (1 standard drink = 0.6 oz pur e alcohol) Sex and Gender Information Value Date Recorded Sex Assigned at Not on file Gender Identity Not on file Sexual Orientation Not on file Last Filed Vital Signs Vital Sign Reading [...] Mass Index 35.58 08/11/2022 3:28 PM CDT Plan of Treatment Health Maintenance Due Date Last Done Comments Medicare Annual Wellness Visit 1935 COVID-19 Vaccine (#1) 1935 Dexa 2000 Zoster/Shingles (2 of 3) 07/04/2014 05/09/2014 Influenza (#1) 2023 03/03/2022, 12/07/2020, 02/28/2020, Additional history exists DTaP/Tdap/Td (2 - Tdap) 11/02/2023 11/01/2013 IPV (Polio) Aged Out 05/12/2000 No longer eligi ble based on patient's age to complete this topic HepA Aged Out 02/01/2001, 05/12/2000 No lo nger eligible based on patient's age to complete this topic Pneumococcal 65+ Yrs Completed 03/19/2018, 05/09/2014, 05/12/2000 HepB Aged Out No longer eligi ble based on patient's age to complete this topic Hib Aged Out No longer eligi ble based on patient's age to complete this topic MCV4 Aged Out No longer eligi ble based on patient's age to complete this topic Airam Ashraf Personal/Family Self [address] [place] [id number]
--- OUTSIDE RECORDS SUMMARY | 2023-05-31 06:15 | XMS_ITS | Encounter Summary ---
Author Name Unknown Organization [facility] Address [address], [place] [address] Care Team Providers Care Chairman & Ceo Name Role Phone Unavailable Primary Care Provider Unavailabl e Reason for Referral * Consult/Transfer Care (Routine) - New Request Specialty Diagnoses / Procedures Referred By Martha t Referred To Contact Diagnoses Normal pressure hydrocephalus (HRC) Neurogenic bladder Neurologic gait dysfunction Radha Martinez PA-C [address] [place] [address] Referral ID Status Reason Start Date Expiration Date V isits Requested Visits Authorized [id number] New Request 06/02/2022 09/01/2023 1 1 Scheduling Instructions Your clinician has recommended an appointment with Xiomy Sepulveda. You can quickly make your appointment by calling [phone]. We suggest you call your health insurance company about your coverage and benefits for this appointment. Question Answer Appointment Urgency? Non-Urgent Reason for visit? Normal pressure hydrocephalus with gait dysfunction and neurogenic bladder; patient interested in a second option about management options TY GLASS INSTALLER Reason for Visit * Reason Comments CONSULT Incontinence Encounter Details Date Type Department Care Team Description 06/02/2022 9:30 AM SAFETY GLASS INSTALLER Office Visit [facility] [address] Urology [address] [place] [phone] Radha Martinez PA-C [address] [place], [place] [id number] Urinary incontinence, unspecified type (Primary Dx); Normal pressure hydrocephalus (HRC); Neurogenic bladder; Neurologic gait dysfunction; Anxiety; History of breast cancer Social History Tobacco Use Types Packs/Day Years Used Date Smoking Tobacco: Never Assessed Sex and Gender Information Value Date Recorded Sex Assigned at Not on file Gender Identity Not on file Sexual Orientation Not on file documented as of this encounter Progress Notes * Radha Martinez PA-C - 06/02/2022 9:30 AM CST UROLOGY CONSULT CC: Urinary incontinence. S: Airam Ashraf is a 86 y.o. female with atrial fibrillation, HTN, anxiety and h/o breast cancer who presents today with c/o urinary incontinence. Record Review/History: - no prior visits through [facility] - Care Everywhere [place], established with neurology for normal pressure hydrocephalus (NPH); neuro consult mentions gait, urinary and cognitive dysfunction suggestive of the clinical syndrome of NPH, no improvement after high-volume LP suggesting that a shunt is unlikely to improve symptoms HPI: - onset 1 year ago or so - endorses significant urinary urgency and UUI - sometimes I don't even know I'm going - wearing a pad all the time - volume of leakage is variable but sometimes it's large and can overflow a pad - endorses nocturnal enuresis, will wake up wet - using 2 ppd, heavy duty pads - no h/o UTI - no h/o stones - no gross hematuria - no dysuria - admits to not drinking enough water - no straining to void - sometimes sitting for a minute or two to feel empty (PVR 0 mL) - occasional small volume SLIME, just a drip - , , uncomplicated - no other documented neurologic disease - using a walker when out of the house, walker or cane at home - BM daily, soft and formed - no fecal urgency or incontinence - would like to establish with [facility] neurology PMH, PSH, MEDICATIONS, ALLERGIES, FH, SH reviewed and updated as appropriate in [facility]. Care Everywhere notes reviewed. O: VSS. No acute respiratory distress. No CVAT bilaterally. Pleasant. UA: trace ketones, small blood, small leuks. PVR: 0 mL by u/s. A: - Neurogenic bladder (NGB) s/t NPH. - Urinary urgency. - Urinary frequency. - Urge urinary incontinence (UUI), predominant. - Stress urinary incontinence (SLIME), mild. - Unawareness urinary incontinence. - Nocturnal enuresis. - Normal pressure hydrocephalus (NPH). - History of breast cancer. - Anxiety. - Microhematuria. P: - UA micro, UC to quantify microhematuria and r/o acute UTI. - Discussed the nature of spastic neurogenic bladder and reviewed the OAB flow sheet. - Discussed the importance of diet and limiting intake of known irritants along with doing some Sherlock Horvath investigating to pin down patient specific triggers. IC diet provided. - Discussed behavioral urge suppression strategies and Mind over Bladder thinking. - Discussed medication options; elected to trial Myrbetriq 50 mg, reviewed MOA, common AE and adequate trial duration. Samples provided. - Schedule baseline urodynamic (UDS) assessment to better characterize voiding dysfunction and to assess candidacy for bladder Botox. ThanksEly PA-C Department of Urologic Surgery TT: 45 minutes spent in chart review, patient counseling and coordination of care. TY GLASS INSTALLER documented in this encounter Plan of Treatment Scheduled Orders Name Type Priority Associated Diagnoses Orde r Schedule POCT Automated Urinalysis Dipstick Point of Care Routine Urinary incontinence, unspecified type Ordered: 06/02/2022 Scheduled Referrals Name Type Priority Associated Diagnoses Orde r Schedule Neurology Consult-Adults Referral Routine Normal pressure hydrocephalus (HRC) Neurogenic bladder Neurologic gait dysfunction Ordered: 06/02/2022 documented as of this encounter Procedures Procedure Name Priority Date/Time Associated Diagnosis Comments URINE CULTURE Routine 06/02/2022 9:51 AM SAFETY GLASS INSTALLER Urinary incontinence, unspecified type UA MICRO Routine 06/02/2022 9:51 AM SAFETY GLASS INSTALLER Urinary incontinence, unspecified type AUTOMATED URINALYSIS DIPSTICK POCT Routine 06/02/2022 9:41 AM SAFETY GLASS INSTALLER documented in this encounter Results * (ABNORMAL) UA Micro: Clean Catch (06/02/2022 9:51 AM SAFETY GLASS INSTALLER) Red Blood Cells 0-3 0 - 3 /HPF 06/02/2022 2:18 PM [facility] White Blood Cells 0-5 0 - 5 /HPF 06/02/2022 2:18 PM [facility] Bacteria Occasional (A) None Seen /HPF 06/02/2022 2:18 PM [facility] Squamous Epithelial Cells Few None Seen, Occasiona l, Few /HPF 06/02/2022 2:18 PM [facility] Urine URINE SPECIMEN COLLECTION, CLEAN CATCH / Unknown Non-blood Collection / Unknown 06/02/2022 9:51 AM SAFETY GLASS INSTALLER 06/02/2022 2:03 PM SAFETY GLASS INSTALLER Radha Martinez PA-C LAB_1 [facility] [address] [place] [address], [facility] [phone] * Urine Culture (06/02/2022 9:51 AM SAFETY GLASS INSTALLER) Pathologist [facility] Urine Culture No Growth After 1 Day 06/03/2022 8:45 PM [facility] Urine URINE SPECIMEN COLLECTION, CLEAN CATCH / Unknown Non-blood Collection / Unknown 06/02/2022 9:51 AM SAFETY GLASS INSTALLER 06/02/2022 1:36 PM SAFETY GLASS INSTALLER Radha Martinez PA-C LAB_[address] [address], [facility] [phone] * (ABNORMAL) Automated Urinalysis Dipstick POCT (06/02/2022 9:41 AM SAFETY GLASS INSTALLER) Glucose Urine Qual (mg/dL) Negative Negative 06/02/2022 9:43 AM [facility] Bilirubin Urine Negative Negative 06/02/2022 9:43 AM [facility] Ketones, Urine (mg/dL) Trace(A) Negative 06/02/2022 9:43 AM [facility] Specific [place], Urine 1.025 1.005 - 1.030 06/02/2022 9:43 AM [facility] Blood, Urine Small(A) Neg/Trace 06/02/2022 9:43 AM [facility] PH Urine 5.5 5.0 - 8.0 06/02/2022 9:43 AM [facility] Protein, Urine Qual (mg/dL) Negative Neg/Trace 06/02/2022 9:43 AM [facility] Urobilinogen, Urine (EU/dL) 0.2 <2.0 06/02/2022 9:43 AM [facility] Nitrite Urine Negative Negative 06/02/2022 9:43 AM [facility] Leukocyte Est. Small(A) Negative 06/02/2022 9:43 AM [facility] Urine Color Yellow Straw-Yellow 06/02/2022 9:43 AM [facility] Urine Clarity Clear Clear 06/02/2022 9:43 AM [facility] Performing Location URO BU 06/02/2022 9:43 AM [facility] Urine 06/02/2022 9:41 AM SAFETY GLASS INSTALLER 06/02/2022 9:43 AM [facility] Radha Martinez PA-C LAB_1 [facility] [address] [place] [address], [facility] [phone] documented in this encounter Visit Diagnoses Diagnosis Urinary incontinence, unspecified type- Primary Normal pressure hydrocephalus (HRC) Idiopathic normal pressure hydrocephalus (INPH) Neurogenic bladder Neurogenic bladder, NOS Neurologic gait dysfunction Abnormality of gait Anxiety (HRC) Anxiety state, unspecified History of breast cancer Personal history of malignant neoplasm of breast documented in this encounter
== END 2023-05-30 09:31 | disposition home or self-care (01) ==
LOC: NFLDREF 05-31 06:13
PROVIDERS: PCP Internal Medicine; Referring Provider Internal Medicine; Visit Provider Internal Medicine
DX: E78.5 Hyperlipidemia, unspecified (principal); I10 Essential (primary) hypertension; M85.80 Other specified disorders of bone density and structure, unspecified site; R73.03 Prediabetes
CPT/HCPCS: 80048; 80061; 82306

== ENCOUNTER 2023-06-08 14:02 | Inpatient (IN) | payer MEDICARE, SELFPAY ==
[2023-06-08] VITALS (10 sets, daily range): BP systolic 147–188; BP diastolic 80–96; PULSE 76–109; RESP 18–20; TEMP 36.5–36.6; O2SAT 91–98; BMI 35.0; BMI 34.3
--- NOTE | 2023-06-08 14:21 | CRLHL7_ITS ---
For Patients: As a result of the Century Cures Act, medical imaging exams and procedure reports are released immediately into your electronic medical record. You may view this report before your referring provider. If you have questions, please contact your health care provider. INDICATION: Shortness of breath. TECHNIQUE: Chest 2 views. COMPARISON: Radiographs from 11/05/2020 and 01/22/2020. FINDINGS: Unchanged position of the right subclavian dual chamber pacemaker leads. Cardiomediastinal silhouette is unchanged. Atherosclerotic aortic calcifications. Increased left perihilar airspace opacities. No pleural effusion or pneumothorax. No acute osseous abnormality. IMPRESSION: New left perihilar airspace opacities concerning for pneumonia in the appropriate clinical context. Recommend repeat chest radiograph in 4-6 weeks to document resolution and exclude underlying lesion. Dictated by Mady Rhodes MD @ 06/08/2023 3:05:45 PM (Electronically Signed)
[2023-06-08] MEDS: predniSONE 10 MG TABLET 50 MG PO (14:30)
[2023-06-08] MEDS: IPRAT-ALBUT 0.5-2.5 MG/3 ML NEB 1 NEB IH (14:55)
--- OUTSIDE RECORDS SUMMARY | 2023-06-08 14:56 | XMS_ITS | Clinical Summary ---
Author Name Unknown Organization [facility] Address [place], [place] [address] Care Team Providers Care [employer] Industrial Arts Teacher Name Role Phone Lina Armstrong MD Primary Care Provider [phone] Allergies Active Allergy Reactions Criticality Noted Date Comments Bacitracin *Unknown Medium 11/10/2017 Intermediate 08/17/2017 per [facility] info Erythromycin *Unknown Medium 11/10/2017 Intermediate reaction per [facility] health 08/17/2017 Latex Throat Swelling/Closing High 05/26/2015 [...] Comments Blood Pressure 165/79 2022 3:47 PM PIPER HELPER Pulse 78 2022 3:47 PM PIPER HELPER Temperature 36.8 ??C (98.3 ??F) 08/04/2018 7:37 AM CD T Respiratory Rate 16 01/31/2020 10:4 7 AM CDT Oxygen Saturation 98% 2022 3:47 PM PIPER HELPER Inhaled Oxygen Concentration - - Weight 107.1 kg (236 lb 1.6 oz) 2022 3:47 PM PIPER HELPER Height 174 cm (5' 8.5) 09/28/2021 12:5 0 PM CDT Body Mass Index 35.37 09/28/2021 12:50 PM CDT Plan of Treatment Upcoming Encounters Date Type Department Care Team (Late st Contact Info) Description 07/11/2023 2:00 PM PIPER HELPER Office Visit [facility] [address] [place] [phone] Kali Del Rio MD [address] [place] [address] 09/28/2023 Cardiac Device Check [facility] [phone] Health Maintenance Due Date Last Done Comments [...] age 65+ Completed 2013 [facility] Pneumococcal series for age 65+ Completed 4, 05/12/2000 COVID-19 vaccine series Completed 03/24/20 23, 03/15/2022, 10/05/2021, Additional history exists Advance Directives Latest Code Status on File Code Status Date Activated Date Inactivated Comments Full Code 08/03/2018 5:43 PM 08/04/2018 2:25 PM Question Answer Comments Code Status Discussion: Not Discussed Care Teams [employer] Industrial [employer] Teacher Relationship Specialty Start Date End Date Lina Armstrong MD [address] [place] [address] [place] [address] PCP - General Internal Medicine 09/08/21
--- OUTSIDE RECORDS SUMMARY | 2023-06-08 14:57 | XMS_ITS | Encounter Summary ---
Author Name Unknown Organization [facility] Address [address] [place] [address] Care Team Providers Care Ux Design Lead Name Role Phone Unavailable Primary Care Provider Unavailabl e Reason for Visit * Reason Comments Outside Records on File Encounter Details Date Type Department Care Team Description 06/16/2022 Telephone [facility] [address] Urology [address] [place] [address] Radha Martinez, PAArline [address] [place], [place] [id number] Outside Records on File Social History Tobacco Use Types Packs/Day Years Used Date Smoking Tobacco: Never Assessed Sex and Gender Information Value Date Recorded Sex Assigned at Not on file Gender Identity Not on file Sexual Orientation Not on file documented as of this encounter Nursing Notes * Leelee Carter RN - 06/16/2022 7:49 AM CST Records from [facility] sent to scan doc. ER FILLER documented in this encounter Plan of Treatment Not on file documented as of this encounter Visit Diagnoses Not on filedocumented in this encounter
--- OUTSIDE RECORDS SUMMARY | 2023-06-08 14:57 | XMS_ITS | Encounter Summary ---
Author Name Unknown Organization [facility] Address [address], [place] [address] Care Team Providers Care Outreach Associate Name Role Phone Unavailable Primary Care Provider Unavailabl e Reason for Visit * Reason Comments BOTOX INJECTION Encounter Details Date Type Department Care Team Description 06/02/2023 Telephone [facility] [address] Urology [address] [place] [address] Radha Martinez, DINORA [address] [place], [place] [address] BOTOX INJECTION Social History Tobacco Use Types Packs/Day Years Used Date Smoking Tobacco: Never Smokeless Tobacco: Never Alcohol Use Standard Drinks/Week Comments Yes 5 (1 standard drink = 0.6 oz pur e alcohol) Sex and Gender Information Value Date Recorded Sex Assigned at Not on file Gender Identity Not on file Sexual Orientation Not on file documented as of this encounter Nursing Notes * Kellen Barnes RN - 06/07/2023 8:30 AM CST Called and spoke with pt. She is going to check with her insurance and think about her options first. She will call back once she has made a decision ETICIAN APPRENTICE * Mady Pascal RN - 06/05/2023 2:35 PM CST Left message for patient to call back. ETICIAN APPRENTICE * Radha Martinez PA-C - 06/05/2023 2:12 PM CST Urology Note: Tan Raymond, thanks for the scoop. Previously Airam did really well on Myrbetriq but it bumped up her blood pressure. She may wish to go back on Myrbetriq and talk to her PCP about adjusting hypertension meds??? UDS in July 2022 didn't show any spasms but the patient's bladder is strong and contracts well. I think Botox is an option we probably just want to start with a lower dose Botox to ensure she doesn't develop obstructive symptoms/retention. If she doesn't want to go back on Myrbetriq and talk to her PCP about adjusting HTN meds then please route to [facility] or [facility] to facilitate bladder Botox schedu ling. Thanks! Ely Martinez PA-C Department of Urologic Surgery ETICIAN APPRENTICE * Leelee Carter RN - 06/02/2023 4:29 PM CST Pt calls in and leaves a message stating that the Gemtesa is not working. She called her insurance to see if Botox is covered and was told that we need to call them. Ely, ok to get scheduled for Botox? Please route to [facility] or [facility] depending on where the pt wants to go. ETICIAN APPRENTICE documented in this encounter Plan of Treatment Not on file documented as of this encounter Visit Diagnoses Not on filedocumented in this encounter
--- OUTSIDE RECORDS SUMMARY | 2023-06-08 14:57 | XMS_ITS | Clinical Summary ---
Author Name Unknown Organization [facility] Address [address] [place] [address] Care Team Providers Care Bacteriology Professor Name Role Phone Unavailable Primary Care Provider Unavailabl e Source Comments You are receiving this document as you are listed as the primary care provider,follow-up provider, or the patient has been referred to you for consultation.This is in compliance with the Medicare and[facility] EHR Incentive Program,which states Providers who transition their patient to another setting of careor provider of care or refers their patient to another provider of care shouldprovide summary care record for each transition of care or referral. DNA SEQ Allergies Active Allergy Reactions Criticality Noted Date [...] Active Active Problems No known active problems Encounters Date Type Department Care Team Description 06/02/2023 Telephone [facility] [address] Urology [address] [place] [address] Radha Martinez, DINORA BOTOX INJECTION from Last 3 Months Social History Tobacco Use Types Packs/Day Years [...] 3) 07/04/2014 05/09/2014 Influenza (#1) 2023 03/03/2022, 1207/2020, 02/28/2020, Additional history exists DTaP/Tdap/Td (2 - [...]
--- OUTSIDE RECORDS SUMMARY | 2023-06-08 14:57 | XMS_ITS | Encounter Summary ---
Author Name Unknown Organization [facility] Address [address] [place] [address] Care Team Providers Care Skin Lifter Bacon Name Role Phone Unavailable Primary Care Provider Unavailabl e Reason for Visit * Reason Comments Procedure Encounter Details Date Type Department Care Team Description 08/08/2022 8:30 AM CDT Procedure Visit [facility] - Urology [address] [facility] [place] [address] Procedure Social History Tobacco Use Types Packs/Day [...] in 2-3 weeks. My nurse line is [phone]. I'll stay tuned!! Wishing you all the [...] Airam's PCP who is outside of the [email or web address] system. - F/U in 6 months or [...] incontinence Nocturnal enuresis NPH (normal pressure hydrocephalus) ([facility]) History of breast cancer URO VOIDING PRESS STUDY INTRA-ABDOMINAL Routine 08/08/2022 10:14 AM CDT Urinary incontinence, mixed Urinary urgency Urinary frequency Urge incontinence Stress incontinence Nocturnal enuresis NPH (normal pressure hydrocephalus) ([facility]) History of breast cancer URO UROFLOW CLINIC Routine 08/08/2022 10 :14 AM CDT Urinary incontinence, mixed Urinary urgency Urinary frequency Urge incontinence Stress incontinence Nocturnal enuresis NPH (normal pressure hydrocephalus) ([facility]) History of breast cancer URO PATCH EMG Routine 08/08/2022 10:14 AM CDT Urinary incontinence, mixed Urinary urgency Urinary frequency Urge incontinence Stress incontinence Nocturnal enuresis NPH (normal pressure hydrocephalus) ([facility]) History of breast cancer URO COMPLEX CYSTOMETROGRAM Routine 08/08 10:14 AM CDT Urinary incontinence, mixed Urinary urgency Urinary frequency Urge incontinence Stress incontinence Nocturnal enuresis NPH (normal pressure hydrocephalus) ([facility]) History of breast cancer documented in [...]
--- OUTSIDE RECORDS SUMMARY | 2023-06-08 14:57 | XMS_ITS | Encounter Summary ---
Author Name Unknown Organization [facility] Address [address], [place] [address] Care Team Providers Care Philosophy Instructor Name Role Phone Unavailable Primary Care Provider Unavailabl e Encounter Details Date Type Department Care Team Description 09/09/2022 Notes/Orders [facility] [place] [address] Urology [address] [place] [address] Radha Martinez PA-C [address] [place] [address] Urinary incontinence, mixed (Primary Dx); Urinary frequency [...]
--- OUTSIDE RECORDS SUMMARY | 2023-06-08 14:57 | XMS_ITS | Encounter Summary ---
Author Name Unknown Organization [facility] Address [address] [place] [address] Care Team Providers Care Receiver Bulk System Name Role Phone Unavailable Primary Care Provider Unavailabl e Reason for Visit * Reason Comments CONSULT * Consult/Transfer Care (Routine) - New Request Specialty Diagnoses / Procedures Referred By Contac t Referred To Contact Diagnoses NPH (normal pressure hydrocephalus) ([facility]) Lina Armstrong MD [address] [place] [address] Referral ID Status Reason Start Date Expiration Date V isits Requested Visits Authorized [id number] New Request 03/16/2022 06/15/2023 1 1 Encounter Details Date Type Department Care Team Description 08/11/2022 3:05 PM CDT Office Visit [facility] [address] [place], [place] [id number] Kalin Pittman MD [address] [place] [address] Polyneuropathy (Primary Dx); Imbalance; Pituitary [...] neuropathy as well. She was evaluated at [facility] with gait evaluations before and after large volume lumbar puncture. She did not show any improvement in her gait after the lumbar puncture, and TOOL CRIB LEAD shunt was not recommended. She did have [...] Tablet (50 mg) by mouth daily. 30 [id number] Misc Natural Products (GLUCOSAMINE CHOND DOUBLE STR [...] due to polyneuropathy: I went over the [place] records in some detail. As noted, she did not show any improvement in her gaitafter large volume lumbar puncture, so TOOL CRIB LEAD shunt is not recommended. I concurred with the [facility] conclusions in that regard. I think [...]
--- OUTSIDE RECORDS SUMMARY | 2023-06-08 14:57 | XMS_ITS | Encounter Summary ---
Author Name Unknown Organization [facility] Address [address], [place] [address] Care Team Providers Care Exploitation Analyst Name Role Phone Unavailable Primary Care Provider Unavailabl e Reason for Visit * Reason Comments Med Request Encounter Details Date Type Department Care Team Description 07/14/2022 Telephone [facility] [address] Urology [address] [place] [address] Radha Martinez PA-C [address] [place], [place] [address] Med Request Social History Tobacco Use Types [...] Myrbetriq 50 mg to be sent to [facility] in [place]. She started samples on 06/02/2022. Future appointment scheduled on 08/08/2022. Order pended for 1 month just in case she does not continue after her appointment in July. RALIST documented in this encounter Plan of Treatment Not on file documented as of this encounter Visit Diagnoses Diagnosis Urinary incontinence, unspecified type- Primary OAB (overactive bladder) Hypertonicity of bladder Urinary urgency Urgency of urination Urinary frequency documented in this encounter
--- NOTE | 2023-06-08 15:02 | ED.GENADULT ---
HPI - General Adult General Chief complaint: Cough Stated complaint: cold, cough Time Seen by Provider: 06/08/23 14:11 Source: patient Mode of arrival: ambulatory Limitations: no limitations History of Present Illness HPI narrative: 87-year-old female presenting today with cough and shortness of breath going on for 2 days. She denies fevers or chills. States that the cough comes on day and night. She does complain of feeling short of breath with any physical activity. She complains of congestion, hoarse voice and fatigue. Appetite is less than usual but she is still eating and drinking. She denies any diarrhea or urinary symptoms. She has no chest pain. Denies any sick contacts. Denies any history of asthma or COPD. Denies smoking. Related Data Home Medications Medication Instructions Recorded Confirmed L mastectomy bra 12/13/21 01/24/23 apixaban 5 mg tablet 5 mg PO BID 12/13/21 01/24/23 calcium carbonate 600 mg calcium 600 mg PO DAILY 12/13/21 01/24/23 (1,500 mg) tablet cholecalciferol (vitamin D3) 125 5,000 unit PO DAILY 12/13/21 01/24/23 mcg (5,000 unit) tablet cyanocobalamin (vitamin B-12) 1,000 mcg PO DAILY 12/13/21 01/24/23 1,000 mcg tablet glucosamine-chondroitin 250 mg-200 1 tab PO BID 12/13/21 01/24/23 mg tablet vhpowxhu-jwla-rbxr 8 mg-folic 400 1 tab PO QDAY 12/13/21 01/24/23 mcg-K 50 mcg-lutein 300 mcg tablet (Centrum Silver Women) metoprolol succinate 100 mg 100 mg PO QDAY 08/01/22 01/24/23 tablet,extended release 24 hr Previous Rx's Medication Instructions Recorded alendronate 70 mg tablet 70 mg PO .Every 7 Days #12 tabs 06/01/23 atorvastatin 20 mg tablet 20 mg PO QDAY #90 tabs 06/01/23 gabapentin 800 mg tablet 800 mg PO TID #360 tabs 06/01/23 sertraline 100 mg tablet 100 mg PO DAILY #90 tabs 06/01/23 valsartan 160 mg tablet 160 mg PO BID #180 tabs 06/01/23 Allergies Allergy/AdvReac Type Severity Reaction Status Date / Time bacitracin Allergy Intermediate Pain, Verified 01/24/23 09:47 irritation latex Allergy Mild Rash, Verified 01/24/23 09:47 effects breathing nickel Allergy Mild Irritation Verified 01/24/23 09:47 Erythromycin Allergy Unknown Unknown Uncoded 01/24/23 09:47 Review of Systems Status of ROS: Reports: 10 or more systems reviewed and unremarkable except as noted in History and below [facility] Medical History History of esophagitis ?Z87.19 - Personal history of other diseases of the digestive system (ICD-10) History of breast cancer ?Z85.3 - Personal history of malignant neoplasm of breast (ICD-10) History of pacemaker ?Z95.0 - Presence of cardiac pacemaker (ICD-10) History of healed fragility fracture ?Z87.310 - Personal history of (healed) osteoporosis fracture (ICD-10) Surgical History History of squamous cell carcinoma ?Z85.89 - Personal history of malignant neoplasm of other organs and systems (ICD-10) 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) ?Z96.652 - Presence of left artificial knee joint (ICD-10) 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 3-4/week , works [employer] 3 week, 2 kids, lives with daughter What is your current living situation?: I presently have a place to live Problems where you live: no known problems In the past 12 months, utilities in danger of being shut off: no In past 12 months, lack of transportation kept you from medical appts, meetings, work, or getting things needed for daily living: no In the past 12 mos, have been you worried that your food would run out before you had money to buy more?: never true In the past 12 mos, the food you bought just didn't last and you didn't have money to buy more?: never true Smoking Status: Never smoker Do you use any of these nicotine containing products: None Second hand tobacco smoke exposure: No How often do you have a drink containing alcohol: 2-4 times a month AUDIT-C Alcohol total score: 2 Non-prescribed substance use: denies use How often does anyone, including family, friends and others, physically hurt you: never How often does anyone, including family, friends and others, insult or talk down to you: rarely How often does anyone, including family, friends and others, threaten you with harm: never How often does anyone, including family, friends and others, scream or curse at you: never Little interest or pleasure in doing things: not at all Feeling down, depressed, or hopeless: not at all Exam Narrative: Exam Narrative: Well-nourished , elderly patient in no acute distress. Alert and oriented. Answers questions appropriately. Mood and affect are appropriate. Thoughts are goal oriented and rational. No tangential or magical thinking noted. Patient speaks in full sentences without needing to catch her breath. She sounds a bit congested. HEENT: Normocephalic atraumatic. Pupils are equally round reactive to light. Extraocular muscles are intact. Conjunctivae are moist without any icterus noted. Moist mucous membranes. Posterior pharynx is normal. Neck is soft without any lymphadenopathy or thyromegaly. No masses are appreciated. Cardiovascular: Heart is regular rate and rhythm S1 and S2 are present with a 2/6 systolic murmur Lungs: Diffuse wheezing bilaterally. Abdomen: Soft and nontender nondistended with normal bowel sounds. Extremities: Bilateral lower extremities show trace to 1+ pitting edema. Skin: Well perfused without any obvious rashes. Const: Vital Signs, click to edit/add: Vital Signs - 24 hr 06/08/23 14:15 06/08/23 14:41 06/08/23 14:49 Temperature 97.7 F Pulse Rate 109 H 93 Pulse Rate [Right Pulse Oximeter] 96 Respiratory Rate 18 Blood Pressure 185/81 H Blood Pressure [Ri ght Upper Arm] 188/96 H Pulse Oximetry 93 93 98 Oxygen Delivery Me thod Room Air Course Course ED Course: Patient received a DuoNeb and oral prednisone. [place] better. Re-examination reveals that the wheezing has decreased however is still present. Chest x-ray, read by me, does show a left-sided infiltrate. Triple swab was negative. Upon presentation patient was saturating 94% on room air, did decrease to 91% with ambulation. However while waiting for lab work to return patient did get as low as 89% on multiple occasions while at rest. Because of this. I decided to admit the patient. CBC, chemistries and blood cultures will be drawn. Vital Signs Vital signs: Initial Vital Signs Temperature 97.7 F 06/08/23 14:15 Temperature Source Temporal Artery Scan 06/08/23 14:15 Pulse Rate 96 06/08/23 14:15 Respiratory Rate 18 06/08/23 14:15 Blood Pressure 188/96 H 06/08/23 14:15 Blood Pressure Mean 126 H 06/08/23 14:15 Blood Pressure Position Sitting 06/08/23 14:15 Pulse Oximetry 93 06/08/23 14:15 Oxygen Delivery Method Room Air 06/08/23 14:15 Vital Signs Temperature 97.7 F 06/08/23 14:15 Pulse Rate 96 06/08/23 14:15 Respiratory Rate 18 06/08/23 14:15 Blood Pressure 188/96 H 06/08/23 14:15 Pulse Oximetry 93 06/08/23 14:15 Oxygen Delivery Method Room Air 06/08/23 14:15 Temperature 97.7 F 06/08/23 14:15 Pulse Rate 93 06/08/23 14:49 Respiratory Rate 18 06/08/23 14:15 Blood Pressure 185/81 H 06/08/23 14:49 Pulse Oximetry 98 06/08/23 14:49 Oxygen Delivery Method Room Air 06/08/23 14:15 Medical Decision Making MDM Narrative Medical decision making narrative: 87-year-old female with pneumonia and hypoxia. Patient will be admitted for further management. Lab Data Lab results reviewed: Yes I reviewed the patient's lab results Labs: Lab Results 01/18/24 Range/Units 14:36 SARS-CoV-2 (PCR) Negative SARS-CoV-2 (Negative) Influenza Type A (PCR) Negative PCR FLU A (Negative) Influenza Type B (PCR) Negative PCR FLU B (Negative) RSV (PCR) Negative PCR RSV (Negative) Imaging Data Chest x-ray: Attestation: I have reviewed the pertinent imaging results. Radiologist's impression: Chest 2 views. COMPARISON: Radiographs from 11/05/2020 and 01/22/2020. FINDINGS: Unchanged position of the right subclavian dual chamber pacemaker leads. Cardiomediastinal silhouette is unchanged. Atherosclerotic aortic calcifications. Increased left perihilar airspace opacities. No pleural effusion or pneumothorax. No acute osseous abnormality. IMPRESSION: New left perihilar airspace opacities concerning for pneumonia in the appropriate clinical context. Recommend repeat chest radiograph in 4-6 weeks to document resolution and exclude underlying lesion. Discharge Plan Discharge Clinical Impression: Hypoxia, Pneumonia Patient Disposition: Admitted As Observation Condition: Stable Prescriptions: No Action cholecalciferol (vitamin D3) 125 mcg (5,000 unit) tablet 5,000 unit PO DAILY glucosamine-chondroitin 250-200 mg tablet 1 tab PO BID calcium carbonate 600 mg calcium (1,500 mg) tablet 600 mg PO DAILY cyanocobalamin (vitamin B-12) 1,000 mcg tablet 1,000 mcg PO DAILY Centrum Silver Women 8 mg iron-400 mcg-300 mcg tablet 1 tab PO QDAY (DME) L mastectomy bra 0 .Route .MEDSUPPLY apixaban 5 mg tablet 5 mg PO BID metoprolol succinate 100 mg tablet extended release 24 hr 100 mg PO QDAY sertraline 100 mg tablet 100 mg PO DAILY Qty: 90 3RF valsartan 160 mg tablet 160 mg PO BID Qty: 180 3RF gabapentin 800 mg tablet 800 mg PO TID Qty: 360 3RF atorvastatin 20 mg tablet 20 mg PO QDAY Qty: 90 3RF alendronate 70 mg tablet 70 mg PO .Every 7 Days Qty: 12 4RF Follow Up/Referrals: Lina Armstrong MD [Primary Care Provider] -
[2023-06-08 15:24] LABS: PCR FLU A Negative PCR FLU A (Negative); PCR FLU B Negative PCR FLU B (Negative); PCR RSV Negative PCR RSV (Negative); SARS PCR* Negative SARS-CoV-2 (Negative)
--- NOTE | 2023-06-08 15:56 | P.IMHP_ITS ---
Hospitalist- H&P: HPI History of Present Illness Date Seen: 06/08/23 Chief complaint: cold, cough Narrative: Airam Ashraf is a 87 year old female who presented to ED today for dyspnea and cough, present for 2 days. Cough worse in evenings. Associated symptoms include dyspnea on exertion, fatigue, congestion. Mild nausea today, no vomiting or diarrhea. No chest pain, no urinary symptoms, no fevers, no chills. Recently saw great-granddaughter who had mild URI symptoms, no other sick contacts or pertinent travel No history of asthma or COPD. Nonsmoker ER Course and Findings: - CXR notable for L perihilar infiltrate - received Prednisone and DuoNeb with + relief - acute hypoxia with O2 saturations <90% during ambulation noted; given this finding, patient admitted for antibiotic therapy, prn supplemental oxygen Airam lives locally with her daughter Arabella. Uses walker for ambulation. History of falls, none recently. Histories reviewed below. PCP is Dr. Armstrong locally. Review of Systems Status of ROS: Reports: 10 or more systems reviewed and unremarkable except as noted in History and below [facility] Medical History (Updated 06/08/23 @ 17:59 by Hannah Leone MD) Major depressive disorder ?F32.9 - Major depressive disorder, single episode, unspecified (ICD-10) Anxiety ?F41.9 - Anxiety disorder, unspecified (ICD-10) Adenomatous colon polyp ?D12.6 - Benign neoplasm of colon, unspecified (ICD-10) Hyperlipidemia ?E78.5 - Hyperlipidemia, unspecified (ICD-10) Health care directive on file ?Z78.9 - Other specified health status (ICD-10) Essential hypertension ?I10 - Essential (primary) hypertension (ICD-10) Prediabetes (2020) ?R73.03 - Prediabetes (ICD-10) Osteopenia (2014) ?M85.80 - Other specified disorders of bone density and structure, unspecified site (ICD-10) Obesity with body mass index (BMI) of 30.0 to 39.9 ?E66.9 - Obesity, unspecified (ICD-10) Meningioma (2017) ?D32.9 - Benign neoplasm of meninges, unspecified (ICD-10) Mild diastolic dysfunction ?I51.9 - Heart disease, unspecified (ICD-10) History of esophagitis ?Z87.19 - Personal history of other diseases of the digestive system (ICD-10) History of breast cancer ?Z85.3 - Personal history of malignant neoplasm of breast (ICD-10) History of pacemaker ?Z95.0 - Presence of cardiac pacemaker (ICD-10) History of healed fragility fracture ?Z87.310 - Personal history of (healed) osteoporosis fracture (ICD-10) Surgical History History of squamous cell carcinoma ?Z85.89 - Personal history of malignant neoplasm of other organs and systems (ICD-10) 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) ?Z96.652 - Presence of left artificial knee joint (ICD-10) 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 3-4/week , works [employer] 3 week, 2 kids, lives with daughter Arabella What is your current living situation?: I presently have a place to live Problems where you live: no known problems In the past 12 months, utilities in danger of being shut off: no In past 12 months, lack of transportation kept you from medical appts, meetings, work, or getting things needed for daily living: no In the past 12 mos, have been you worried that your food would run out before you had money to buy more?: never true In the past 12 mos, the food you bought just didn't last and you didn't have money to buy more?: never true Smoking Status: Never smoker Do you use any of these nicotine containing products: None Second hand tobacco smoke exposure: No How often do you have a drink containing alcohol: 2-4 times a month AUDIT-C Alcohol total score: 2 Non-prescribed substance use: denies use How often does anyone, including family, friends and others, physically hurt you : never How often does anyone, including family, friends and others, insult or talk down to you: rarely How often does anyone, including family, friends and others, threaten you with harm: never How often does anyone, including family, friends and others, scream or curse at you: never Little interest or pleasure in doing things: not at all Feeling down, depressed, or hopeless: not at all Meds Home Medications and Allergies Home Medications Medication Instructions Recorded Confirmed Type L mastectomy bra 12/13/21 01/24/23 History apixaban 5 mg tablet 5 mg PO BID 12/13/21 06/08/23 History calcium carbonate 600 mg calcium 600 mg PO DAILY 12/13/21 06/08/23 History (1,500 mg) tablet cholecalciferol (vitamin D3) 125 5,000 unit PO DAILY 12/13/21 06/08/23 History mcg (5,000 unit) tablet cyanocobalamin (vitamin B-12) 1,000 mcg PO DAILY 12/13/21 06/08/23 History 1,000 mcg tablet glucosamine-chondroitin 250 mg-200 1 tab PO BID 12/13/21 06/08/23 History mg tablet otcymopb-vndc-pbyl 8 mg-folic 400 1 tab PO QDAY 12/13/21 06/08/23 History mcg-K 50 mcg-lutein 300 mcg tablet (Centrum Silver Women) metoprolol succinate 100 mg 100 mg PO DAILY 08/01/22 06/08/23 History tablet,extended release 24 hr atorvastatin 20 mg tablet 20 mg PO DAILY 06/08/23 06/08/23 History Allergies Allergy/AdvReac Type Severity Reaction Status Date / Time bacitracin Allergy Intermediate Pain, Verified 01/24/23 09:47 irritation latex Allergy Mild Rash, Verified 01/24/23 09:47 effects breathing nickel Allergy Mild Irritation Verified 01/24/23 09:47 Erythromycin Allergy Unknown Unknown Uncoded 01/24/23 09:47 Exam Narrative: Exam Narrative: GEN: Alert and oriented, sitting comfortably in bed, nontoxic HEENT: EOMIs bilaterally, no scleral icterus CV: Sinus rhythm, holosystolic murmur heard best at left sternal border R: Wheezing bilateral apices, no rales Ext: wwp, + bilateral onychomycosis, no concerning edema Skin: No concerning skin lesions or rashes on exposed skin Neuro: No focal deficits Psych: Appropriate Const: Vital Signs, click to edit/add: Vital Signs - 24 hr 06/08/23 14:15 06/08/23 14:41 06/08/23 14:49 Temperature 97.7 F Pulse Rate 109 H 93 Pulse Rate [Right Pulse Oximeter] 96 Respiratory Rate 18 Blood Pressure 185/81 H Blood Pressure [Ri ght Upper Arm] 188/96 H Pulse Oximetry 93 93 98 Oxygen Delivery Me thod Room Air Assessment and Plan Assessment and plan (1) Pneumonia: Problem comment: - presumably CAP, initiate Ceftriaxone and Doxycycline 06/08 - Legionella/strep antigens pending - given wheezing, will add steroids and nebulizer treatments - RT referral Status: Acute (2) Hypoxia: Problem comment: - supplemental oxygen as needed Status: Acute (3) Paroxysmal atrial fibrillation: Problem comment: - currently in SR, on Metoprolol - anticoagulated on apixaban Status: Acute Plan - per above - Apixaban for ppx - Requests Full Code status
[2023-06-08 16:37] LABS: Chloride* 103 mmol/L (96-114); Potassium* 3.8 mmol/L (3.6-5.1); Sodium* 134 mmol/L (135-149)
[2023-06-08 16:40] LABS: Anion Gap 9 mEq/L (7-15); Carbon Dioxide* 22 mmol/L (20-32); Creatinine* 0.6 mg/dL (0.5-1.5); Est. Creatinine Clearance* 39.98; Estimated Glomerular Filt Rate 87 ml/min
[2023-06-08 16:41] LABS: Blood Urea Nitrogen* 11 mg/dL (7-30); Glucose* 181 mg/dL (60-115)
[2023-06-08 16:55] LABS: Basophils Percent Auto 0.2 % (0.0-3.0); Eosinophils Percent Auto 0.1 % (0.0-7.0); Hematocrit 48.2 % (33.0-51.0); Hemoglobin* 15.7 gm/dL (12.0-16.0); Lymphocytes Percent Auto 3.9 % (20-44); Mean Corpuscular HGB Conc 33 gm/dL (32-36); Mean Corpuscular Hemoglobin 28 pg (26-34); Mean Corpuscular Volume 86 fL (80-100); Monocytes Percent Auto 3.2 % (0.0-11.0); Neutrophils Percent Auto 91.6 % (42.0-72.0); Platelet Count* 296 K/uL (140-440); RDW Coefficient of Variation % 13.4 % (11.5-15.5); Red Blood Count 5.62 m/uL (4.00-5.20); White Blood Count* 16.48 K/uL (4.50-11.00)
[2023-06-08 17:00] LABS: Slide Review Reflex No
[2023-06-08] MEDS: METOPROLOL SUCCINATE (XL) 100 MG TAB PO (18:30)
[2023-06-08] MEDS: SERTRALINE 100 MG TABLET PO (18:30)
[2023-06-08] MEDS: cefTRIAXone 1 GM in 0.9 % SODIUM CHLORIDE Mini-bag 100 ML IVPB (18:30)
[2023-06-08 19:04] LABS: Procalcitonin* 0.07 ng/mL (<0.50)
[2023-06-08 19:05] LABS: Legionella pneumo Ag Urine L. pneumo Negative (Negative); S pneumo Ag Urine S. pneumo Negative (Negative)
[2023-06-08] MEDS: VALSARTAN 80 MG TABLET 160 MG PO (20:44)
[2023-06-08] MEDS: DOXYCYCLINE HYCLATE 100 MG PO (20:44)
[2023-06-08] MEDS: APIXABAN 5 MG TABLET PO (20:44)
[2023-06-08] MEDS: GABAPENTIN 600 MG TABLET PO (20:45)
[2023-06-08] MEDS: SODIUM CHLORIDE 0.9 % (FLUSH) 10 ML SYRINGE 5 ML IVF (21:45)
--- NOTE | 2023-06-08 22:33 | PC.NURSE ---
Patient arrived to M/S floor around 1620. Patient able to ambulate in the room with SBA and walker. Pt currently on RA with oxygen saturations around 94% at rest. Pt demonstrates a course cough that is non-productive. lung sounds are wheezy. Blood cultures drawn by lab. Antibiotics given without any adverse effects. Pt pleasant and cooperative.
[2023-06-09] MEDS: ACETAMINOPHEN 325 MG TABLET 975 MG PO (01:13)
[2023-06-09] MEDS: MELATONIN 3 MG TABLET PO (01:14)
[2023-06-09 05:20] VITALS: BP 154/92; PULSE 79; RESP 18; O2SAT 95
[2023-06-09 06:49] LABS: Basophils Percent Auto 0.2 % (0.0-3.0); Eosinophils Percent Auto 0.1 % (0.0-7.0); Hemoglobin* 15.2 gm/dL (12.0-16.0); Immature Granulocytes Pct Auto 0.3 %; Lymphocytes Percent Auto 9.8 % (20-44); Mean Corpuscular HGB Conc 32 gm/dL (32-36); Mean Corpuscular Hemoglobin 28 pg (26-34); Mean Corpuscular Volume 86 fL (80-100); Monocytes Percent Auto 6.6 % (0.0-11.0); Platelet Count* 314 K/uL (140-440); RDW Coefficient of Variation % 13.5 % (11.5-15.5); Red Blood Count 5.47 m/uL (4.00-5.20); White Blood Count* 15.55 K/uL (4.50-11.00)
[2023-06-09 07:00] VITALS: RESP 18; O2SAT 96
[2023-06-09 07:03] LABS: Slide Review Reflex No
[2023-06-09 07:08] LABS: Chloride* 103 mmol/L (96-114); Sodium* 137 mmol/L (135-149)
[2023-06-09 07:09] LABS: Potassium* 3.6 mmol/L (3.6-5.1)
[2023-06-09 07:11] LABS: Anion Gap 7 mEq/L (7-15); Carbon Dioxide* 27 mmol/L (20-32); Creatinine* 0.7 mg/dL (0.5-1.5); Est. Creatinine Clearance* 39.98; Estimated Glomerular Filt Rate 84 ml/min
[2023-06-09 07:12] LABS: Blood Urea Nitrogen* 14 mg/dL (7-30); Calcium* 9.1 mg/dL (8.4-10.6); Glucose* 146 mg/dL (60-115)
[2023-06-09 07:41] VITALS: PULSE 71
[2023-06-09] MEDS: predniSONE 20 MG TABLET 40 MG PO (09:00)
[2023-06-09] MEDS: DOXYCYCLINE HYCLATE 100 MG PO (09:00)
[2023-06-09] MEDS: ATORVASTATIN 10 MG TABLET 20 MG PO (09:00)
[2023-06-09] MEDS: METOPROLOL SUCCINATE (XL) 100 MG TAB PO (09:00)
[2023-06-09] MEDS: APIXABAN 5 MG TABLET PO (09:00)
[2023-06-09] MEDS: GABAPENTIN 600 MG TABLET PO (09:00)
[2023-06-09 09:02] VITALS: BP 167/138; PULSE 77; RESP 22; TEMP 36.6; O2SAT 96
[2023-06-09] MEDS: VALSARTAN 80 MG TABLET 160 MG PO (09:19)
[2023-06-09] MEDS: IPRAT-ALBUT 0.5-2.5 MG/3 ML NEB 1 NEB IH (09:19)
[2023-06-09] MEDS: SODIUM CHLORIDE 0.9 % (FLUSH) 10 ML SYRINGE 5 ML IVF (09:19)
[2023-06-09] MEDS: SERTRALINE 100 MG TABLET PO (09:20)
[2023-06-09] MEDS: cefTRIAXone 1 GM in 0.9 % SODIUM CHLORIDE Mini-bag 100 ML IVPB (11:27)
--- NOTE | 2023-06-09 11:37 | PC.NURSE ---
shift note: pt up sba to bathroom with steady gait. pt denies pain. pt has dry unproductive cough. LS continue to be dim with exp wheezing. pt given neb this a.m. IV dc'd intact Lt hand. Reviewed dc instructions and copies sent with pt at dc. belongings reviewed and sent with pt on dc.
--- NOTE | 2023-06-09 13:16 | REH.OT ---
OT: Orders received, met with patient and daughter who decline need for OT eval. Patient ambulating without assist using walker, shares home management and IADLs with daughter. Daughter reports she has DME for pacing and energy conserrvation with current diagnosis. Will defer eval per patient/family.
--- NOTE | 2023-06-09 14:52 | PM.DS1 ---
DS: Providers Provider Date Seen: 06/09/23 Date of admission: 06/08/23 16:57 Primary care physician: Lina Armstrong MD Admitting Clinician: Josh Cutler MD Attending Physician on discharge: Mazin Johnson MD Date of Discharge: 06/09/23 DS: Diagnosis Discharge Diagnosis (1) Pneumonia: Status: Acute Problem details: - presumably CAP, initiate Ceftriaxone and Doxycycline 06/08 - Legionella/strep antigens negative RSV, COVID, influenza serology negative Initially had wheezing but that has resolved. No history of COPD or asthma. Not hypoxic. (2) Paroxysmal atrial fibrillation: Status: Acute Problem details: - currently in SR, on Metoprolol - anticoagulated on apixaban (3) Frailty syndrome in geriatric patient: Status: Acute Problem details: Doing fairly well today. Getting back to baseline. Daughter, Arabella, comfortable with her going home again. (4) Essential hypertension: Status: Acute Problem details: Resume home medications DS: Summary Hospital Course Hospital Course: 87-year-old female admitted to the hospital with a 2 day history of cough and dyspnea. Cough and dyspnea getting worse so she presented to the emergency room for evaluation. She was found to have a left hilar pneumonia. Recommended repeat imaging to document clearance of this infiltrate in 4-6 weeks. She was treated for community-acquired pneumonia with doxycycline and ceftriaxone. She reports clinical improvement overnight. In the emergency department she was found to be hypoxic with activity but at rest she has had no hypoxia. Status at Discharge Functional status at discharge: uses cane/walker Time Spent with Patient Time attestation: Total time spent providing and/or coordinating discharge services: Time spent: Greater than 30 minutes Exam Narrative: Exam Narrative: She is alert, pleasant and in no distress. She has fairly good air exchange in all lung solis. No wheezing rales or rhonchi. Cardiovascular: S1, S2, relatively regular rhythm. Abdomen is soft without tenderness or mass. Extremities with 1+ edema in both ankles. Const: Vital Signs, click to edit/add: Vital Signs - 24 hr 06/08/23 15:00 06/08/23 15:02 06/08/23 15:30 Temperature Pulse Rate 88 92 95 Pulse Rate [Pulse Oximeter] Respiratory Rate Blood Pressure Blood Pressure [Ri ght Arm] Pulse Oximetry 98 94 93 Oxygen Delivery Me thod 06/08/23 15:32 06/08/23 17:38 06/08/23 17:38 Temperature 98 F Pulse Rate 95 Pulse Rate [Pulse Oximeter] 94 Respiratory Rate 18 18 Blood Pressure 175/85 H Blood Pressure [Ri ght Arm] 147/80 H Pulse Oximetry 91 94 94 Oxygen Delivery Me thod Room Air Room Air 06/08/23 23:00 06/08/23 23:00 06/08/23 23:00 Temperature Pulse Rate 81 Pulse Rate [Pulse Oximeter] 76 Respiratory Rate 20 20 Blood Pressure Blood Pressure [Ri ght Arm] Pulse Oximetry 96 Oxygen Delivery Me thod Room Air 06/08/23 23:00 06/09/23 05:20 06/09/23 07:00 Temperature Pulse Rate Pulse Rate [Pulse Oximeter] 76 79 Respiratory Rate 20 18 18 Blood Pressure Blood Pressure [Ri ght Arm] 152/84 H 154/92 H Pulse Oximetry 96 95 96 Oxygen Delivery Me thod Room Air Room Air Room Air 06/09/23 07:41 06/09/23 09:02 Temperature 97.8 F Pulse Rate 71 Pulse Rate [Pulse Oximeter] 77 Respiratory Rate 22 Blood Pressure Blood Pressure [Ri ght Arm] 167/138 H Pulse Oximetry 96 Oxygen Delivery Me thod Room Air Documenting provider has reviewed patient's vital signs: yes DS: Data Data Completed and Pending Labs on day of discharge: Labs from last 24 hours 06/09/23 06/08/23 06/08/23 05:58 17:27 16:15 WBC 15.55 H 16.48 H RBC 5.47 H 5.62 H Hgb 15.2 15.7 Hct 47.0 48.2 MCV 86 86 MCH 28 28 MCHC 32 33 RDW Coeff of Diane 13.5 13.4 Plt Count 314 296 Neut % (Auto) 83.0 H 91.6 H Lymph % (Auto) 9.8 L 3.9 L Howell % (Auto) 6.6 3.2 Eos % (Auto) 0.1 0.1 Baso % (Auto) 0.2 0.2 Neut # (Auto) 12.90 H 15.10 H Lymph # (Auto) 1.50 0.60 L Howell # (Auto) 1.00 H 0.50 Eos # (Auto) 0.00 0.00 Baso # (Auto) 0.00 0.00 Abs Immat Gran (auto) 0.00 0.20 Imm/Tot Granulo (auto) 0.3 1.0 Sodium 137 134 L Potassium 3.6 3.8 Chloride 103 103 Carbon Dioxide 27 22 Anion Gap 7 9 BUN 14 11 Creatinine 0.7 0.6 Estimated Creat Clear 39.98 39.98 Estimated GFR 84 87 Glucose 146 H 181 H Calcium 9.1 9.0 Procalcitonin 0.07 Urine L. pneumophilia Ag L. pneumo Negative Urine Strep pneumoniae Ag S. pneumo Negative SARS-CoV-2 (PCR) Influenza Type A (PCR) Influenza Type B (PCR) RSV (PCR) Lab Acknowledgement Test Added 06/08/23 14:36 WBC RBC Hgb Hct MCV MCH MCHC RDW Coeff of Diane Plt Count Neut % (Auto) Lymph % (Auto) Howell % (Auto) Eos % (Auto) Baso % (Auto) Neut # (Auto) Lymph # (Auto) Howell # (Auto) Eos # (Auto) Baso # (Auto) Abs Immat Gran (auto) Imm/Tot Granulo (auto) Sodium Potassium Chloride Carbon Dioxide Anion Gap BUN Creatinine Estimated Creat Clear Estimated GFR Glucose Calcium Procalcitonin Urine L. pneumophilia Ag Urine Strep pneumoniae Ag SARS-CoV-2 (PCR) Negative SARS-CoV-2 Influenza Type A (PCR) Negative PCR FLU A Influenza Type B (PCR) Negative PCR FLU B RSV (PCR) Negative PCR RSV Lab Acknowledgement Imaging Chest x-ray: Radiologist's impression: INDICATION: Shortness of breath. TECHNIQUE: Chest 2 views. COMPARISON: Radiographs from 11/05/2020 and 01/22/2020. FINDINGS: Unchanged position of the right subclavian dual chamber pacemaker leads. Cardiomediastinal silhouette is unchanged. Atherosclerotic aortic calcifications. Increased left perihilar airspace opacities. No pleural effusion or pneumothorax. No acute osseous abnormality. IMPRESSION: New left perihilar airspace opacities concerning for pneumonia in the appropriate clinical context. Recommend repeat chest radiograph in 4-6 weeks to document resolution and exclude underlying lesion. Discharge Plan Discharge Disposition: Home w/ Parent or Adult Date of Admission: 06/08/23 16:57 Attending Provider on Discharge: Elkin Johnson Primary Care Provider: Lina Armstrong Condition: Stable Anticipated Discharge Date/Time: 06/09/23 11:09 Discharge Medications: New doxycycline hyclate 100 mg Tablet 100 mg PO BID Qty: 14 0RF Continued cholecalciferol (vitamin D3) 125 mcg (5,000 unit) tablet 5,000 unit PO DAILY glucosamine-chondroitin 250-200 mg tablet 1 tab PO BID calcium carbonate 600 mg calcium (1,500 mg) tablet 600 mg PO DAILY cyanocobalamin (vitamin B-12) 1,000 mcg tablet 1,000 mcg PO DAILY Centrum Silver Women 8 mg iron-400 mcg-300 mcg tablet 1 tab PO QDAY (DME) L mastectomy bra 0 .Route .MEDSUPPLY apixaban 5 mg tablet 5 mg PO BID metoprolol succinate 100 mg tablet extended release 24 hr 100 mg PO DAILY sertraline 100 mg tablet 100 mg PO DAILY Qty: 90 3RF valsartan 160 mg tablet 160 mg PO BID Qty: 180 3RF gabapentin 800 mg tablet 800 mg PO TID Qty: 360 3RF alendronate 70 mg tablet 70 mg PO .Every 7 Days Qty: 12 4RF Patient Comments: on tuesdays atorvastatin 20 mg tablet 20 mg PO DAILY Discharge Orders: Discharge Order (Routine); Ordered 06/09/23 Ordered By: Elkin Johnson Patient Education: Doxycycline (By mouth), Pneumonia (DC) Activity Level: Activity as Tolerated Discharge Diet: Regular Follow Up Appointments: Lina Armstrong MD [Primary Care Provider] - Forms: [facility] Info Instructions
== END 2023-06-09 13:00 | disposition home or self-care (01) | DRG 195 ==
LOC: ED 15:44 → MEDSURG 16:37
PROVIDERS: Family Medicine; Admitting Provider Internal Medicine; Emergency Provider Family Medicine; PCP Internal Medicine; Visit Provider Internal Medicine
DX: J18.9 Pneumonia, unspecified organism (principal); F32.9 Major depressive disorder, single episode, unspecified; R09.02 Hypoxemia; I48.0 Paroxysmal atrial fibrillation; Z79.01 Long term (current) use of anticoagulants; F41.9 Anxiety disorder, unspecified; I10 Essential (primary) hypertension; E66.9 Obesity, unspecified; Z95.0 Presence of cardiac pacemaker; R54 Age-related physical debility; Z68.33 Body mass index [BMI] 33.0-33.9, adult; M85.80 Other specified disorders of bone density and structure, unspecified site; Z85.3 Personal history of malignant neoplasm of breast
CPT/HCPCS: 36415; 71046; 80048; 84145; 85025; 87040; 87449; 87631; 87899; 94640; 97161; 99284; 99285; A9270; J0696; J7512

== ENCOUNTER 2023-07-17 03:50 | Outpatient (CLI) | payer MEDICARE, SELFPAY | END 2023-07-17 03:51 | disposition home or self-care (01) | LOC: AMB 07-27 16:28 | PROVIDERS: PCP Internal Medicine; Visit Provider Family Medicine | DX: I49.9 Cardiac arrhythmia, unspecified (principal); R42 Dizziness and giddiness | CPT/HCPCS: A0425; A0427 ==

== ENCOUNTER 2023-07-17 04:38 | Emergency (ER) | payer MEDICARE, SELFPAY ==
[2023-07-17 04:44] VITALS: BP 140/76; PULSE 90; RESP 20; TEMP 36.7; O2SAT 95; BMI 34.2
--- NOTE | 2023-07-17 04:51 | XR_ITS ---
Patient: DES SHIRLEY Facility:?[facility] Patient ID:?[id number] Site Patient ID:?[id number]. Site :?[id number] Study:?XRay-Chest PORTABLE-07/17/2023 5:09:59 AM Ordering Physician:SULEMA Final Report: Indication: Chest pain, SVT Technique: Chest one view Comparison: 07/13/2023 Findings: Lower lung volumes. No edema or effusion. No new opacity. Cardiomediastinal silhouette unchanged. Two lead pacer from a right subclavian transvenous approach with leads in similar position. Impression: Lower lung volumes. No acute findings otherwise. Dictated by Jyoti Liao MD @ 07/17/2023 5:14:15 AM Signed by:?Jyoti Liao MD @07/17/2023 5:14:15 AM (Electronic Signature)
--- NOTE | 2023-07-17 04:52 | ED.ARRPALP ---
HPI - Arrhythmia/Palpitations General Time Seen by Provider: 04:52 Date Seen: 07/17/23 Chief Complaint: Arrhythmia/Palpitations Stated Complaint: dizzy Time Seen by Provider: 07/17/23 04:47 Source: patient, family, RN notes reviewed and old records reviewed Mode of arrival: ambulatory Limitations: no limitations History of Present Illness HPI narrative: 88-year-old female with history of hypertension presents today with fast heart rate lightheadedness. This started about 5 hours prior to coming to the emergency department. Denies chest pain with this, did feel little short of breath and had some nausea. No new medications, did review prior emergency department visit from June 08 when patient was seen with hypoxia and found to have pneumonia, she was treated for this and was feeling better. Review of notes from most recent hospitalization June 08 and for pneumonia shows patient is on Eliquis for paroxysmal atrial fibrillation, also on metoprolol 100 mg daily Related Data Home Medications Medication Instructions Recorded Confirmed L mastectomy bra 12/13/21 07/13/23 calcium carbonate 600 mg calcium 600 mg PO DAILY 12/13/21 07/17/23 (1,500 mg) tablet cholecalciferol (vitamin D3) 125 5,000 unit PO DAILY 12/13/21 07/17/23 mcg (5,000 unit) tablet cyanocobalamin (vitamin B-12) 1,000 mcg PO DAILY 12/13/21 07/17/23 1,000 mcg tablet [id number] 8 mg-folic 400 1 tab PO QDAY 12/13/21 07/17/23 mcg-K 50 mcg-lutein 300 mcg tablet (Centrum Silver Women) metoprolol succinate 100 mg 100 mg PO DAILY 08/01/22 07/17/23 tablet,extended release 24 hr atorvastatin 20 mg tablet 20 mg PO DAILY 06/08/23 07/17/23 Previous Rx's Medication Instructions Recorded gabapentin 800 mg tablet 800 mg PO TID #360 tabs 06/01/23 sertraline 100 mg tablet 100 mg PO DAILY #90 tabs 06/01/23 valsartan 160 mg tablet 160 mg PO BID #180 tabs 06/01/23 alendronate 70 mg tablet 70 mg PO .Every 7 Days #4 tabs 06/16/23 metoprolol succinate 100 mg 100 mg PO DAILY #30 ea 02/26/24 capsule sprinkle, ext. release 24 hr Allergies Allergy/AdvReac Type Severity Reaction Status Date / Time bacitracin Allergy Intermediate Pain, Verified 07/17/23 04:47 irritation latex Allergy Mild Rash, Verified 07/17/23 04:47 effects breathing nickel Allergy Mild Irritation Verified 07/17/23 04:47 erythromycin base Allergy Unknown Verified 07/17/23 04:47 PFSH PFS Medical History (Updated 07/17/23 @ 07:56 by Wei Dominguez MD) Meningioma (2017) ?D32.9 - Benign neoplasm of meninges, unspecified (ICD-10) History of esophagitis ?Z87.19 - Personal history of other diseases of the digestive system (ICD-10) History of breast cancer ?Z85.3 - Personal history of malignant neoplasm of breast (ICD-10) History of pacemaker ?Z95.0 - Presence of cardiac pacemaker (ICD-10) History of healed fragility fracture ?Z87.310 - Personal history of (healed) osteoporosis fracture (ICD-10) Surgical History History of squamous cell carcinoma ?Z85.89 - Personal history of malignant neoplasm of other organs and systems (ICD-10) 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) ?Z96.652 - Presence of left artificial knee joint (ICD-10) 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 3-4/week , works [employer] 3 week, 2 kids, lives with daughter Arabella What is your current living situation?: I presently have a place to live Problems where you live: no known problems Problems where you live details: n/a In the past 12 months, utilities in danger of being shut off: no In past 12 months, lack of transportation kept you from medical appts, meetings, work, or getting things needed for daily living: no In the past 12 mos, have been you worried that your food would run out before you had money to buy more?: never true In the past 12 mos, the food you bought just didn't last and you didn't have money to buy more?: never true Smoking Status: Never smoker Do you use any of these nicotine containing products: None Second hand tobacco smoke exposure: No How often do you have a drink containing alcohol: 2-4 times a month AUDIT-C Alcohol total score: 2 Non-prescribed substance use: denies use Caffeine: Yes How often does anyone, including family, friends and others, physically hurt you: never How often does anyone, including family, friends and others, insult or talk down to you: rarely How often does anyone, including family, friends and others, threaten you with harm: never How often does anyone, including family, friends and others, scream or curse at you: never Little interest or pleasure in doing things: not at all Feeling down, depressed, or hopeless: not at all service: No Exam Narrative: Exam Narrative: General: Well-developed and well-nourished, no acute distress Head: Atraumatic and normocephalic Eyes: Pupils are equal reactive, extraocular motions intact, conjunctiva clear ENT: External nose and ears are normal, posterior pharynx without erythema or exudate Neck: No midline cervical tenderness, full spontaneous range of motion the neck, trachea midline, no adenopathy Heart: Regular rate and rhythm no murmurs or thrills Lungs: Clear to auscultation bilaterally without wheezes or crackles Abdomen: Soft, nontender, nondistended with active bowel sounds Musculoskeletal: No tenderness, deformity, or edema Neurologic: Awake, alert, and oriented x3, no gross focal neurologic deficits, cranial nerves intact as tested Psych: Mood and affect are appropriate Skin: No rashes Const: Vital Signs, click to edit/add: Vital Signs - 24 hr 07/17/23 04:44 07/17/23 06:10 07/17/23 06:15 Temperature 98.0 F Pulse Rate 77 Pulse Rate [Right Pulse Oximeter] 90 81 Respiratory Rate 20 18 18 Blood Pressure 158/76 H Blood Pressure [Ri ght Upper Arm] 140/76 H 165/87 H Pulse Oximetry 95 95 97 Oxygen Delivery Me thod Room Air Room Air 07/17/23 06:31 07/17/23 06:32 07/17/23 07:16 Temperature Pulse Rate 78 76 79 Pulse Rate [Right Pulse Oximeter] Respiratory Rate 20 Blood Pressure 164/86 H Blood Pressure [Ri ght Upper Arm] Pulse Oximetry 95 95 97 Oxygen Delivery Me thod Course Course ED Course: Patient seen and examined, prior records reviewed including admission from May 2023. Patient presents today with palpitations and lightheadedness. EMS found patient in SVT and converted to sinus rhythm with adenosine 12 mg. Patient feels well here. Denies chest pain or shortness of breath, no nausea currently and previous lightheadedness resolved. Labs ordered along with chest x-ray. If workup is reassuring, patient can be discharged. Reevaluation(s) Time of Reevaluation #1: 05:51 Reevaluation #1: Chest x-ray ordered and independently interpreted by me negative for acute findings. Labs ordered and Bentyl interpreted by me with normal basic metabolic panel, normal magnesium, BNP elevated at 2470 but no evidence for pulmonary edema or heart failure on chest x-ray in this likely represents rate-related strain. Time of Reevaluation #2: 06:06 Reevaluation #2: Troponin is slightly elevated which likely represents strain from SVT, acute coronary syndrome is unlikely. Repeat troponin will be performed and if stable or going down, patient will be discharged. Patient is stable for discharge for with outpatient follow-up, should continue her regular medications. In absence of chest pain or shortness of breath, pulmonary embolism is unlikely. Follow-up with cardiology and primary care. On further review, patient has not been taking her metoprolol. This may be contributing to her dysrhythmia today, metoprolol 100 mg given in the emergency department and prescription sent. Time of Reevaluation #3: 07:53 Reevaluation #3: Repeat troponin is 0.23. This likely does represent rate related strain and not acute coronary syndrome. Discussed this with patient and family member. Patient had no chest pain during her episode of SVT and continues to be without chest pain. Considered admission but has patient had no symptoms and likely this is strain related, she can follow-up as an outpatient. Vital Signs Vital signs: Initial Vital Signs Temperature 98.0 F 07/17/23 04:44 Temperature Source Temporal Artery Scan 07/17/23 04:44 Pulse Rate 90 07/17/23 04:44 Respiratory Rate 20 07/17/23 04:44 Respiratory Effort Normal, Spontaneous, Non-Labored 07/17/23 04:44 Respiratory Depth Normal 07/17/23 04:44 Respiratory Pattern Normal 07/17/23 04:44 Blood Pressure 140/76 H 07/17/23 04:44 Blood Pressure Mean 97 07/17/23 04:44 Blood Pressure Position Supine 07/17/23 04:44 Pulse Oximetry 95 07/17/23 04:44 Oxygen Delivery Method Room Air 07/17/23 04:44 Vital Signs Temperature 98.0 F 07/17/23 04:44 Pulse Rate 90 07/17/23 04:44 Respiratory Rate 20 07/17/23 04:44 Blood Pressure 140/76 H 07/17/23 04:44 Pulse Oximetry 95 07/17/23 04:44 Oxygen Delivery Method Room Air 07/17/23 04:44 Temperature 98.0 F 07/17/23 04:44 Pulse Rate 79 07/17/23 07:16 Respiratory Rate 20 07/17/23 06:31 Blood Pressure 164/86 H 07/17/23 06:31 Pulse Oximetry 97 07/17/23 07:16 Oxygen Delivery Method Room Air 07/17/23 06:10 Medications Administered Medications: Discontinued Medications Generic Name Dose Route Start Last Admin Trade Name Freq PRN Reason Stop Dose Admin Metoprolol Succinate 100 mg 07/17/23 06:13 07/17/23 06:41 Metoprolol Succinate (Xl) 100 Mg Tab PO 07/17/23 06:14 100 mg ONCE ONE Administration MDM - Arrhythmia/Palpitations Lab Data Labs: Lab Results 07/17/23 07/17/23 Range/Units 05:10 06:55 WBC 9.09 (4.50-11.00) K/uL RBC 5.54 H (4.00-5.20) m/uL Hgb 15.3 (12.0-16.0) gm/dL Hct 48.3 (33.0-51.0) % MCV 87 (80-100) fL MCH 28 (26-34) pg MCHC 32 (32-36) gm/dL RDW Coeff of Diane 13.7 (11.5-15.5) % Plt Count 279 (140-440) K/uL Neut % (Auto) 78.3 H (42.0-72.0) % Lymph % (Auto) 12.0 L (20-44) % [place] % (Auto) 6.5 (0.0-11.0) % Eos % (Auto) 2.6 (0.0-7.0) % Baso % (Auto) 0.4 (0.0-3.0) % Neut # (Auto) 7.10 H (1.7-7.0) K/uL Lymph # (Auto) 1.10 (0.90-2.90) K/uL [place] # (Auto) 0.60 (0.00-0.90) K/UL Eos # (Auto) 0.24 (0.00-0.50) K/uL Baso # (Auto) 0.04 (0.00-0.30) K/uL Abs Immat Gran (auto) 0.02 (0.00-0.30) K/uL Imm/Tot Granulo (auto) 0.2 % Sodium 139 (135-149) mmol/L Potassium 3.7 (3.6-5.1) mmol/L Chloride 106 (96-114) mmol/L Carbon Dioxide 23 (20-32) mmol/L Anion Gap 10 (7-15) mEq/L BUN 12 (7-30) mg/dL Creatinine 0.8 (0.5-1.5) mg/dL Estimated Creat Clear 39.23 Estimated GFR 71 ml/min Glucose 163 H (60-115) mg/dL Calcium 9.3 (8.4-10.6) mg/dL Magnesium 2.1 (1.5-2.6) mg/dL Troponin I 0.07 H* 0.23 H* (0.01-0.04) ng/mL NT-Pro-B Natriuret Pep 2470 pg/mL ECG Data Attestation: I personally reviewed and interpreted this ECG as follows: ECG interpretation date: 07/17/23 ECG interpretation time: 04:45 Prior ECG tracings: not available for review Interpretation: Independently interpreted by me normal sinus rhythm with right but bundle-branch block and left anterior fascicular block, no acute ischemic changes, rate 93, DE 146, QTC 534. No prior available for comparison. Discharge Plan Discharge Clinical Impression: Anticoagulated, Supraventricular tachycardia, Elevated troponin Patient Disposition: Home w/ Parent or Adult Condition: Stable Instructions: Supraventricular Tachycardia (ED), Blood Thinners (ED) Additional Instructions: Continue your current medications including metoprolol. Follow-up with your primary care doctor in 5-7 days Activity Level: No Restrictions Discharge Diet: Regular Prescriptions: New metoprolol succinate 100 mg capsule,sprinkle,ER 24hr 100 mg PO DAILY Qty: 30 0RF No Action cholecalciferol (vitamin D3) 125 mcg (5,000 unit) tablet 5,000 unit PO DAILY calcium carbonate 600 mg calcium (1,500 mg) tablet 600 mg PO DAILY cyanocobalamin (vitamin B-12) 1,000 mcg tablet 1,000 mcg PO DAILY Centrum Silver Women 8 mg iron-400 mcg-300 mcg tablet 1 tab PO QDAY (DME) L mastectomy bra 0 .Route .MEDSUPPLY metoprolol succinate 100 mg tablet extended release 24 hr 100 mg PO DAILY sertraline 100 mg tablet 100 mg PO DAILY Qty: 90 3RF valsartan 160 mg tablet 160 mg PO BID Qty: 180 3RF gabapentin 800 mg tablet 800 mg PO TID Qty: 360 3RF atorvastatin 20 mg tablet 20 mg PO DAILY alendronate 70 mg tablet 70 mg PO .Every 7 Days Qty: 4 0RF Patient Comments: on tuesdays Follow Up/Referrals: Lina Armstrong MD [Primary Care Provider] - Stand Alone Forms: [employer] Info Instructions
[2023-07-17 05:21] LABS: Basophils Absolute Auto 0.04 K/uL (0.00-0.30); Basophils Percent Auto 0.4 % (0.0-3.0); Eosinophils Absolute Auto 0.24 K/uL (0.00-0.50); Eosinophils Percent Auto 2.6 % (0.0-7.0); Hematocrit 48.3 % (33.0-51.0); Hemoglobin* 15.3 gm/dL (12.0-16.0); Immature Granulocytes Abs Auto 0.02 K/uL (0.00-0.30); Immature Granulocytes Pct Auto 0.2 %; Mean Corpuscular HGB Conc 32 gm/dL (32-36); Mean Corpuscular Hemoglobin 28 pg (26-34); Mean Corpuscular Volume 87 fL (80-100); Monocytes Percent Auto 6.5 % (0.0-11.0); Neutrophils Percent Auto 78.3 % (42.0-72.0); Platelet Count* 279 K/uL (140-440); RDW Coefficient of Variation % 13.7 % (11.5-15.5); Red Blood Count 5.54 m/uL (4.00-5.20); White Blood Count* 9.09 K/uL (4.50-11.00)
[2023-07-17 05:34] LABS: Chloride* 106 mmol/L (96-114); Potassium* 3.7 mmol/L (3.6-5.1); Sodium* 139 mmol/L (135-149)
[2023-07-17 05:36] LABS: Creatinine* 0.8 mg/dL (0.5-1.5); Est. Creatinine Clearance* 39.23; Estimated Glomerular Filt Rate 71 ml/min
[2023-07-17 05:37] LABS: Anion Gap 10 mEq/L (7-15); Blood Urea Nitrogen* 12 mg/dL (7-30); Calcium* 9.3 mg/dL (8.4-10.6); Carbon Dioxide* 23 mmol/L (20-32); Glucose* 163 mg/dL (60-115)
[2023-07-17 05:38] LABS: Magnesium* 2.1 mg/dL (1.5-2.6)
[2023-07-17 05:48] LABS: NT Pro B Type NatriureticPept* 2470 pg/mL
[2023-07-17 05:55] LABS: Slide Review Reflex No
[2023-07-17 06:03] LABS: Troponin I* 0.07 ng/mL (0.01-0.04)
[2023-07-17 06:10] VITALS: BP 165/87; PULSE 81; RESP 18; O2SAT 95
[2023-07-17 06:15] VITALS: BP 158/76; PULSE 77; RESP 18; O2SAT 97
[2023-07-17 06:31] VITALS: BP 164/86; PULSE 78; RESP 20; O2SAT 95
[2023-07-17 06:32] VITALS: PULSE 76; O2SAT 95
[2023-07-17] MEDS: METOPROLOL SUCCINATE (XL) 100 MG TAB PO (06:41)
[2023-07-17 07:16] VITALS: PULSE 79; O2SAT 97
[2023-07-17 07:50] LABS: Troponin I* 0.23 ng/mL (0.01-0.04)
== END 2023-07-17 08:05 | disposition home or self-care (01) ==
LOC: ED 05:21
PROVIDERS: Emergency Provider Family Medicine; PCP Internal Medicine
DX: I47.10 Supraventricular tachycardia, unspecified (principal); R79.89 Other specified abnormal findings of blood chemistry; Z79.01 Long term (current) use of anticoagulants
CPT/HCPCS: 36415; 71045; 80048; 83735; 83880; 84484; 85025; 93005; 99284; 99285; A9270

== ENCOUNTER 2023-11-30 17:55 | Observation (INO) | payer MEDICARE, SELFPAY ==
[2023-11-30] VITALS (17 sets, daily range): BP systolic 148–202; BP diastolic 71–101; PULSE 67–94; RESP 16–22; TEMP 35.9–36.6; O2SAT 89–98; BMI 33.5; BMI 34.4
[2023-11-30 18:52] LABS: Appearance Urine Clear (Clear); Bilirubin Urine Negative (Negative); Blood Urine Negative (Negative); Color Urine Yellow (Yellow); Glucose Urine Negative (Negative); Ketones Urine Negative (Negative); Leukocyte Esterase Urine 1+ (Negative); Nitrite Urine Negative (Negative); Protein Urine Negative (Negative); Specific Gravity Urine 1.025 (1.000-1.030); Urobilinogen Urine 0.2 (0.2-1.0); pH Urine 5.5 (5.0-8.5)
[2023-11-30 19:22] LABS: Bacteria Urine Few; RBC Urine 0-2 (0-2); Squamous Epithelial Cell Urine Few (None-Few)
--- NOTE | 2023-11-30 19:30 | CRLHL7_ITS ---
For Patients: As a result of the Century Cures Act, medical imaging exams and procedure reports are released immediately into your electronic medical record. You may view this report before your referring provider. If you have questions, please contact your health care provider. INDICATION: Shortness of breath. TECHNIQUE: Chest 2 views. COMPARISON: 07/17/2023. FINDINGS: Cardiovascular and mediastinum: Atherosclerotic and uncoiled thoracic aorta. Normal heart size. Unchanged 2 lead right chest cardiac device Lungs and pleural spaces: New subtle increased lung markings within the periphery of the lingular base. No pleural effusion or pneumothorax. Bones and soft tissues: Unremarkable for age. IMPRESSION: Subtle increased lung markings within the periphery of the lingula base could represent atelectasis or pneumonia, in the correct clinical setting. Dictated by Trent Horn MD @ 11/30/2023 9:59:39 PM (Electronically Signed)
--- OUTSIDE RECORDS SUMMARY | 2023-11-30 19:57 | XMS_ITS | Encounter Summary ---
Author Organization [email or web address] Address [address] [place] [address] Care Team Providers Care Ticket Machine Operator Name Role Phone Unavailable Primary Care Provider Unavailabl e Reason for Visit * Reason Comments Follow-up, NOS Encounter Details Date Type Department Care Team (Late st Contact Info) Description 10/25/2023 Telephone [facility] [address] Urology [address] [place] [address] Radha Martinez PA-C [address] [place] [address] Follow-up, NOS Social History Tobacco Use Types Packs/Day Years [...] Nursing Notes * Leelee Carter RN - 10/26/2023 3:34 PM CDT Pt notified. Nurse visit booked. * Radha Martinez PA-C - 10/26/2023 1:11 PM CDT Urology Note: Tan Raymond, thanks for the scoop. Briefly in summary: - c/o urgency, frequency, UUI, SLIME - 07/2022 UDS revealed 433 mL, compliant, stable bladder with strong terminal detrusor function andsuccessful bladder emptying; no spasms, no SLIME near capacity - failed Myrbetriq (helpful for LUTs but increased BP) - failed Gemtesa (effectiveness waned with time) Recommendations: - Patient now calling in with desire to proceed with bladder Botox. This is totally reasonable! - Let's have her come in for a nurse visit for UA, PVR check to rule out UTI and make sure she's still emptying. - Once we see the urine and the PVR I can route Airam's chart to one of the surgeons to facilitatebladder Botox. Thanks!! Ely Martinez PA-C Department of Urologic Surgery * Leelee Carter RN - 10/25/2023 11:35 AM CDT Pt calls in to let us know that the Gemtesa is no longer working. She is interested in botox. Pt last seen 07/2022. Ely, do you want her to schedule a follow up with you prior to scheduling botox? Nurse visit for PVR? Please let me know how to proceed. documented in this encounter Plan of Treatment Upcoming Encounters Date Type Department Care Team (Late st Contact Info) Description 01/10/2024 7:45 AM CDT Appointment [facility] - Urology [address] [place], [place] [address] Lynn Pompa MBBS [address] [place], [place] [id number] documented as of this encounter Visit Diagnoses Not on filedocumented in this encounter
--- OUTSIDE RECORDS SUMMARY | 2023-11-30 19:57 | XMS_ITS | Encounter Summary ---
Author Organization [employer] Address [address], [place] [address] Care Team Providers Care General Technician Name Role Phone Lina Armstrong MD Primary Care Provider +1- [phone] Reason for Visit * Reason Comments Follow-up, NOS Encounter Details Date Type Department Care Team (Late st Contact Info) Description 11/03/2023 1:00 PM CDT [facility] [address] [facility] [address] [place] [address] Nurse, Bv Uro Urinary incontinence, mixed (Primary Dx) Social History Tobacco Use Types Packs/Day Years Used Date Smoking Tobacco: Never Smokeless Tobacco: Never Alcohol Use Standard Drinks/Week Comments Yes 5 (1 standard drink = 0.6 oz pur e alcohol) Sex and Gender Information Value Date Recorded Sex Assigned at Not on file Gender Identity Not on file Sexual Orientation Not on file documented as of this encounter Progress Notes * Leelee Carter RN - 11/03/2023 1:00 PM CDT Pt is here for ua/pvr. She recently called and has decided she would like to proceed with Botox. Urinalysis is negative for infection and PVR is 0 ml. UDS was done in 2022. Pt would like to do the procedure on a because that is when her daughter is off work and can bring her. I believe Dr. Solares and Dr. Pompa work some Fridays. Will route to their teams. Ok to schedule botox without a consult with first? * Brooke Solares MD - 11/03/2023 1:00 PM CDT Okay to schedule with me on a . A quick phone visit beforehand would be great! documented in this encounter Plan of Treatment Upcoming Encounters Date Type Department Care Team (Late st Contact Info) Description 01/10/2024 7:45 AM CDT Appointment [facility] - Urology [address] [facility] [place], [place] [id number] Lynn Pompa MBBS [address] [place], [place] [id number] Scheduled Orders Name Type Priority Associated Diagnoses Orde r Schedule POCT Automated Urinalysis Dipstick Point of Care Routine Urinary incontinence, mixed Ordered: 11/03/2023 documented as of this encounter Procedures Procedure Name Priority Date/Time Associated Diagnosis Comments AUTOMATED URINALYSIS DIPSTICK POCT Routine 11/03/2023 1:24 PM CDT documented in this encounter Results * Automated Urinalysis Dipstick POCT (11/03/2023 1:24 PM CDT) Glucose Urine Qual (mg/dL) Negative Negative 11/03/2023 1:28 PM CDT [facility] Bilirubin Urine Negative Negative 11/03/2023 1:28 PM CDT [facility] Ketones, Urine (mg/dL) Negative Negative 11/03/2023 1:28 PM T [facility] Specific [place], Urine 1.015 1.005 - 1.030 11/03/2023 1:28 PM T [facility] Blood, Urine Trace Neg/Trace 11/03/2023 1:28 PM [facility] PH Urine 7.0 5.0 - 8.0 11/03/2023 1:28 PM T [facility] Protein, Urine Qual (mg/dL) Negative Neg/Trace 11/03/2023 1:28 PM CDT [facility] Urobilinogen, Urine (EU/dL) 0.2 <2.0 11/03/2023 1:28 PM CDT [facility] Nitrite Urine Negative Negative 11/03/2023 1:28 PM CDT [facility] Leukocyte Est. Negative Negative 11/03/2023 1:28 PM CDT [facility] Urine Color Yellow 11/03/2023 1:28 PM CDT [facility] Urine Clarity Clear Clear 11/03/2023 1:28 PM CDT [facility] Performing Location [facility] 11/03/2023 1:28 PM CDT [facility] Urine 11/03/2023 1:24 PM CDT 11/03/2023 1:28 PM CDT Bv Uro Nurse LAB_1 Performing Organization Address City/State/[facility] de Phone Number [facility] [address] [place] [address] documented in this encounter Visit Diagnoses Diagnosis Urinary incontinence, mixed- Primary Mixed incontinence urge and stress (male)(female) documented in this encounter Care Teams General Technician Relationship Specialty Start Date End Date Lina Armstrong MD [address] [place] [address] PCP - General Internal Medicine 11/03/23 documented as of this encounter
--- OUTSIDE RECORDS SUMMARY | 2023-11-30 19:57 | XMS_ITS | Encounter Summary ---
Author Organization [facility] Address [address], [place] [address] Care Team Providers Care Enrichment Teacher Name Role Phone Lina Armstrong MD Primary Care Provider [phone]- [phone] Reason for Visit * Reason Comments Appointment Encounter Details Date Type Department Care Team (Late Contact Info) Description 11/07/2023 Telephone [facility] - Urology [address] [place], [place] [phone] Lynn Pompa MBBS [address] [place] [address] Appointment Social History Tobacco Use Types Packs/Day Years Used Date Smoking Tobacco: Never Smokeless Tobacco: Never Alcohol Use Standard Drinks/Week Comments Yes 5 (1 standard drink = 0.6 oz pur e alcohol) Sex and Gender Information Value Date Recorded Sex Assigned at Not on file Gender Identity Not on file Sexual Orientation Not on file documented as of this encounter Nursing Notes * Latrice Abel LPN - 11/07/2023 7:51 AM CDT LM for patient regarding next botox appt. Looking at 01/09 745 AM. She is to callback. documented in this encounter Plan of Treatment Upcoming Encounters Date Type Department Care Team (Late Contact Info) Description 01/10/2024 7:45 AM CDT Appointment [facility] - Urology [address] [place] [address] Lynn Pompa MBBS [address] [place] [address] documented as of this encounter Visit Diagnoses Not on filedocumented in this encounter Care Teams Enrichment Teacher Relationship Specialty Start Date End Date Lina Armstrong MD [address] [place] [address] PCP - General Internal Medicine 11/03/23 documented as of this encounter
--- OUTSIDE RECORDS SUMMARY | 2023-11-30 19:57 | XMS_ITS | Clinical Summary ---
Author Organization [facility] Address [place], [place] [address] Care Team Providers Care Warm In Name Role Phone Lina Armstrong MD Primary Care Provider +1- [phone] Allergies Active Allergy Reactions Criticality Noted Date Comments Bacitracin *Unknown Medium 11/10/2017 Intermediate 08/17/2017 per [facility] info Erythromycin *Unknown Medium 11/10/2017 Intermediate reaction per [facility] 08/17/2017 Latex Throat Swelling/Closing High 05/26/2015 Other reaction(s): RASH, effects breathing Nickel Rash 07/11/2018 Medications Medication Sig Dispensed Refills Start Date End Date Status multivitamin (MVI) tablet Take 1 tablet by mouth once daily. 0 05/26/2015 Active melatonin (MELATIN) 3 mg tablet Take 5 mg by mouth at bedtime. 0 11/30/2015 Active WalkerIndications: Neuropathy Rolling Walker with chair 1 Device 03/14/2016 Active Breast ProsthesisIndicati ons:Malignant neoplasm of female breast, unspecified laterality, unspecified site of breast For personal use. 1 Device 03/14/2016 Active sertraline (ZOLOFT) 50 mg tabletIndications: Situational anxiety TAKE 1 TABLET BY MOUTH EVERY DAY 90 tablet 2 04/25/2017 Active valsartan (DIOVAN) 160 mg tabletIndications: Hypertension, unspecified type Take 1 tablet by mouth once daily in the evening. 0 07/11/2018 Active magnesium 250 mg tab [...] (800 mg) by mouth 3 times daily. 09/28/2021 Active mirabegron EXTENDED-release (MYRBETRIQ) 50 mg tablet Take 1 Tablet (50 mg) by mouth once daily. 0 2022 Active metoprolol succinate (Toprol XL) 100 mg Sustained-Release tabletIndications: Paroxysmal atrial fibrillation (HC) Take 1 Tablet (100 mg) by mouth once daily. 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 05/28/2015 Encounters Date Type Department Care Team Description 11/30/2023 Telephone [facility] [address] [address] Tal Herman, LUPILLO Device Check 11/28/2023 Telephone [facility] [address] [address] Leanne Jean I, LUPILLO Device Check 11/28/2023 Telephone [facility] [address] [address] Jn Clemons MD Atrial Fibrillation from Last 3 Months Immunizations Name Administration [...] Sign Reading Time Taken Comments Blood Pressure 160/72 07/11/2023 2:06 PM DEVELOPMENTAL SERVICES WORKER Pulse 94 07/11/2023 2:06 PM DEVELOPMENTAL SERVICES WORKER Temperature 36.8 ??C (98.3 ??F) 08/04/2018 7:37 AM CD T Respiratory Rate 16 01/31/2020 10:47 AM CDT Oxygen Saturation 98% 07/11/2023 2:06 PM DEVELOPMENTAL SERVICES WORKER Inhaled Oxygen Concentration - - Weight 103.4 kg (228 lb) 07/11/2023 2:06 PM DEVELOPMENTAL SERVICES WORKER Height 174 cm (5' 8.5) 09/28/2021 12:50 PM CDT Body Mass Index 34.16 09/28/2021 12:50 PM CDT Plan of Treatment Upcoming Encounters Date Type Department Care Team (Late st Contact Info) Description 12/01/2023 Cardiac Device Check On License [facility] [phone] 01/25/2024 Cardiac Device Check On License Of [facility] [phone] Health Maintenance Due Date Last Done Comments Zoster (shingles) series for age 50+ (1 of 2) 1985 Medicare Wellness for age 65+ 2000 Depression screening for age 12+ 03/14/2017 03/14/20 16, 11/30/2015 BMI (ht and wt on same day) for age 18+ 09/28/2022 09/28/2021, 01/13/2020, 07/11/2018, Additional history exists COVID-19 vaccine series ( season) 2023 03/24/2023, 03/15/2022, 10/05/2021, Additional history exists Tetanus booster 11/02/2023 11/01/2013 Influenza for age 65+ 01/21/2024 03/02/2017 , 02/10/2016, 02/23/2015 Tdap Completed 11/01/2013 DEXA/DXA scan for age 65+ Completed 2013 (Completed outside of [facility]) Pneumococcal series for age 65+ Completed 4, 05/12/2000 Advance Directives * Full Code (Latest Code Status on File) Date Activated Date Inactivated Comments 08/03/2018 5:43 PM 08/04/2018 2:25 PM Question Answer Comments Code Status Discussion: Not Discussed Care Teams Warm In Relationship Specialty Start Date End Date Lina Armstrong MD [address] [facility] [place] [address] PCP - General Internal Medicine 09/08/21
--- OUTSIDE RECORDS SUMMARY | 2023-11-30 19:57 | XMS_ITS | Encounter Summary ---
Author [facility] Address [address], [place] [address] Care Team Providers Care Tableau Report Developer Name Role Phone Lina Armstrong MD Primary Care Provider [phone]- [phone] Encounter Details Date Type Department Care Team (Late st Contact Info) Description 11/17/2023 Notes/Orders [facility] - Urology [address] [place] [address] Lynn Pompa MBBS [address] [place] [address] Urinary frequency (Primary Dx) Social History Tobacco Use Types [...] as of this encounter Plan of Treatment Upcoming Encounters Date Type Department Care Team (Late st Contact Info) Description 01/10/2024 7:45 AM CDT Appointment [facility] Urology [address] [place] [address] Lynn Pompa MBBS [address] [place] [address] Scheduled Orders Name Type Priority Associated Diagnoses Orde r Schedule Urine Culture Microbiology Routine Urinary frequency Expected: 11/17/2023 (Approximate), Expires: 02/15/2024 UA Micro If: Clean Catch Lab Routine Urinary frequency Expected: 11/17/2023, Expires: 02/15/2024 documented as of this encounter Visit Diagnoses Diagnosis Urinary frequency- Primary documented in this encounter Care Teams Tableau Report Developer Relationship Specialty Start Date End Date Lina Armstrong MD [address] [place] [address] PCP - General Internal Medicine 11/03/23 documented as of this encounter
--- OUTSIDE RECORDS SUMMARY | 2023-11-30 19:57 | XMS_ITS | Clinical Summary ---
Author Organization [email or web address] Address [address] [place] [address] Care Team Providers Care Dementia Program Director Name Role Phone Lina Armstrong MD Primary Care Provider +1- [phone] Source Comments You are receiving this document as you are listed as the primary care provider,follow-up provider, or the patient has been referred to you for consultation.This is in compliance with the Medicare and[facility] EHR Incentive Program,which states Providers who transition their patient to another setting of careor provider of care or refers their patient to another provider of care shouldprovide summary care record for each transition of care or referral. [facility] Allergies Active Allergy Reactions Criticality Noted Date Comments Latex Other, see comments High 08/11/2022 Throat swelling Medications Medication Sig Dispensed Refills Start Date End Date Status sertraline (ZOLOFT) 100 MG tablet Take 1 Tablet (100 mg) by mouth daily. 08/02/2022 Active valsartan (DIOVAN) 160 MG tablet Take 1 Tablet (160 mg) by mouth two times a day. 06/07/2022 Active metoprolol succinate (TOPROL XL) 100 MG 24 hour release tablet Take 1 Tablet (100 mg) by mouth daily. 2022 Active ELIQUIS 5 MG tablet Take 1 Tablet (5 mg) by mouth two times a day. 08/05/2022 Active alendronate (FOSAMAX) 70 MG tablet Take 1 Tablet (70 mg) by mouth once every week. 08/07/2022 Active atorvastatin (LIPITOR) 20 MG tablet Take 1 Tablet (20 mg) by mouth daily. 06/19/2022 Active gabapentin (NEURONTIN) 800 MG tablet Take 1 Tablet (800 mg) by mouth three times a day. 05/19/2022 Active cholecalciferol (VITAMIN D3) 25 MCG (1000 UT) tablet Take 1 Tablet (1,000 Units) by mouth. Active Multiple Vitamins-Minerals (CERTAVITE SENIOR/ANTIOXIDANT ) TABS Take 1 Tablet by mouth daily. Active Misc Natural Products (GLUCOSAMINE CHOND DOUBLE STR OR) Take 1 Tablet by mouth. Active MELATONIN OR Take 10 mg by mouth daily at bedtime. Active vitamin B-12 (AKA: CYANOCOBALAMIN) 1000 MCG tablet Take 1 Tablet (1,000 mcg) by mouth daily. Active mirabegron (MYRBETRIQ) 50 MG 24 hour release tabletIndications: Urinary incontinence, unspecified type,OAB (overactive bladder),Urinary urgency,Urinary frequency Take 1 Tablet (50 mg) by mouth daily. 30 Tablet 11 07/14/2022 4 Discontinued Vibegron 75 MG TABSIndications:Ur inary incontinence, mixed,Urinary urgency,Urinary frequency,Urge incontinence Take 1 Tablet (75 mg) by mouth daily. 56 Tablet 08/08/2022 4 Discontinued Vibegron 75 MG TABSIndications:Ur inary incontinence, mixed,Urinary frequency Take 1 Tablet (75 mg) by mouth daily. 90 Tablet 3 09/09/2022 4 Discontinued(Inef fective for condition) Active Problems No known active problems Encounters Date Type Department Care Team Description 11/17/2023 Notes/Orders [facility] - Urology [address] [place] [address] Lynn Pompa MBBS Urinary frequency (Primary Dx) 11/07/2023 Telephone [facility] - Urology [address] [facility] [place] [address] Lynn Pompa MBBS Appointment 11/03/2023 1:00 PM CDT Nursing Visit [facility] [address] [address] [address] [place] [address] Nurse, Bv Uro Urinary incontinence, mixed (Primary Dx) 10/25/[address] [facility] [address] [address] [address] [place] [phone] Radha Martinez PA-C Follow-up, NOS from Last 3 Months Social History Tobacco [...] 08/11/2022 3:28 PM CDT Plan of Treatment Upcoming Encounters Date Type Department Care Team (Late st Contact Info) Description 01/10/2024 7:45 AM CDT Appointment [facility] - Urology [address] [facility] [place], [place] [phone] Lynn Pompa, MBBS [address] [place], [place] [phone] Health Maintenance Due Date Last Done Comments Medicare Annual Wellness Visit 1935 Dexa 2000 Zoster/Shingles (2 of 3) 07/04/2014 05/09/2014 COVID-19 Vaccine ( season) 2023 03/24/2023, 03/15/2022, 10/05/2021, Additional history exists Influenza (#1) 2024 03/24/2023, 02/19, 04/23/2021, Additional history exists DTaP/Tdap/Td (3 - Tdap) 12/12/2032 12/12/2022, 11/01 IPV (Polio) Aged Out 05/12/2000 No longer [...] on patient's age to complete this topic Procedures Procedure Name Priority Date/Time Associated Diagnosis Comments AUTOMATED URINALYSIS DIPSTICK POCT Routine 11/03/2023 1:24 PM CDT from Last 3 Months Results * Automated Urinalysis Dipstick POCT (11/03/2023 1:24 PM CDT) Glucose Urine Qual (mg/dL) Negative Negative 11/03/2023 1:28 PM [facility] Bilirubin Urine Negative Negative 11/03/2023 1:28 PM [facility] Ketones, Urine (mg/dL) Negative Negative 11/03/2023 1:28 PM [facility] Specific [place], Urine 1.015 1.005 - 1.030 11/03/2023 1:28 PM [facility] Blood, Urine Trace Neg/Trace 11/03/2023 1:28 PM [facility] PH Urine 7.0 5.0 - 8.0 11/03/2023 1:28 PM [facility] Protein, Urine Qual (mg/dL) Negative Neg/Trace 11/03/2023 1:28 PM [facility] Urobilinogen, Urine (EU/dL) 0.2 <2.0 11/03/2023 1:28 PM [facility] Nitrite Urine Negative Negative 11/03/2023 1:28 PM [facility] Leukocyte Est. Negative Negative 11/03/2023 1:28 PM [facility] Urine Color Yellow 11/03/2023 1:28 PM CDT [facility] Urine Clarity Clear Clear 11/03/2023 1:28 PM CDT [facility] Performing Location [facility] 11/03/2023 1:28 PM CDT [facility] Urine 11/03/2023 1:24 PM CDT 11/03/2023 1:28 PM CDT Bv Uro Nurse LAB_1 [facility] [address] [place] [address], [facility] from Last 3 Months Care Teams Dementia Program Director Relationship Specialty Start Date End Date Lina Armstrong MD [address] [address] PCP - General Internal Medicine 11/03/23
[2023-11-30 20:14] LABS: Lactate* 1.2 mmol/L (0.5-1.9)
--- NOTE | 2023-11-30 20:21 | ED.GENADULT ---
HPI - General Adult General Chief complaint: Dizziness/Vertigo Stated complaint: dizzy, weak, pacemaker Time Seen by Provider: 11/30/23 19:29 Source: patient Mode of arrival: ambulatory Limitations: no limitations History of Present Illness HPI narrative: 88-year-old female coming in today complaining of not feeling well. Patient states she has not been feeling well for a couple of days. Has decreased energy and nausea. She feels lightheaded like she has to grab onto things when she walks around or she might fall. She denies any vertiginous symptoms. Has had a good appetite, no vomiting. No fevers or chills. No headache or achiness. No chest pain but has had some shortness of breath. Generally sleeping well at night. She did get a call from the company did interrogate her pacemaker to tell her that she was in atrial fibrillation overnight. Patient is no longer in AFib. She did not feel any palpitations last night. Patient is anticoagulated. Related Data Home Medications ?Medication ?Instructions ?Recorded ?Confirmed L mastectomy bra 12/13/21 07/31/23 calcium carbonate 600 mg PO DAILY 12/13/21 12/01/23 cholecalciferol (vitamin D3) 125 5,000 unit PO DAILY 12/13/21 11/30/23 mcg (5,000 unit) tablet apixaban 5 mg tablet 5 mg PO BID 07/31/23 11/30/23 Previous Rx's ?Medication ?Instructions ?Recorded gabapentin 800 mg tablet 800 mg PO TID #360 tabs 06/01/23 sertraline 100 mg tablet 100 mg PO DAILY #90 tabs 06/01/23 valsartan 160 mg tablet 160 mg PO BID #180 tabs 06/01/23 alendronate 70 mg tablet 70 mg PO .Every 7 Days #4 tabs 06/16/23 atorvastatin 20 mg tablet 20 mg PO DAILY #90 tabs 07/26/23 metoprolol succinate 100 mg 100 mg PO DAILY #90 tabs 07/31/23 tablet,extended release 24 hr metoprolol succinate 25 mg 12.5 mg (1/2 x 25 mg) PO DAILY #30 12/01/23 tablet,extended release 24 hr tabs Allergies Allergy/AdvReac Type Severity Reaction Status Date / Time bacitracin Allergy Intermediate Pain, Verified 11/30/23 18:09 irritation latex Allergy Mild Rash, Verified 11/30/23 18:09 effects breathing nickel Allergy Mild Irritation Verified 11/30/23 18:09 erythromycin base Allergy Unknown Verified 11/30/23 18:09 Review of Systems Status of ROS: Reports: 10 or more systems reviewed and unremarkable except as noted in History and below [facility] Medical History (Updated 12/01/23 @ 14:15 by Liliya Osman PA-C) Elevated troponin ?R79.89 - Other specified abnormal findings of blood chemistry (ICD-10) Pacemaker ?Z95.0 - Presence of cardiac pacemaker (ICD-10) Meningioma (2017) ?D32.9 - Benign neoplasm of meninges, unspecified (ICD-10) History of esophagitis ?Z87.19 - Personal history of other diseases of the digestive system (ICD-10) History of breast cancer ?Z85.3 - Personal history of malignant neoplasm of breast (ICD-10) History of pacemaker ?Z95.0 - Presence of cardiac pacemaker (ICD-10) History of healed fragility fracture ?Z87.310 - Personal history of (healed) osteoporosis fracture (ICD-10) Surgical History History of squamous cell carcinoma ?Z85.89 - Personal history of malignant neoplasm of other organs and systems (ICD-10) 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) ?Z96.652 - Presence of left artificial knee joint (ICD-10) 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 3-4/week , works [employer] 3 week, 2 kids, lives with daughter Arabella Code status is full code for witnessed arrest. Daughter Arabella and son Rafi who lives in [place] are her healthcare power of divorce attorney What is your current living situation?: I presently have a place to live Problems where you live: no known problems Problems where you live details: n/a In the past 12 months, utilities in danger of being shut off: no In past 12 months, lack of transportation kept you from medical appts, meetings, work, or getting things needed for daily living: no In the past 12 mos, have been you worried that your food would run out before you had money to buy more?: never true In the past 12 mos, the food you bought just didn't last and you didn't have money to buy more?: never true Highest level of school completed/degree received: some college, no degree Smoking Status: Never smoker Do you use any of these nicotine containing products: None Second hand tobacco smoke exposure: Yes How often do you have a drink containing alcohol: 2-4 times a month Alcohol type: wine How many standard drinks containing alcohol do you have on a typical day: 1 or 2 How often do you have six or more drinks on one occasion: Monthly AUDIT-C Alcohol total score: 4 Non-prescribed substance use: denies use Caffeine: Yes How often does anyone, including family, friends and others, physically hurt you: never How often does anyone, including family, friends and others, insult or talk down to you: rarely How often does anyone, including family, friends and others, threaten you with harm: never How often does anyone, including family, friends and others, scream or curse at you: never Little interest or pleasure in doing things: not at all Feeling down, depressed, or hopeless: not at all service: No Exam Narrative: Exam Narrative: Well-nourished , elderly patient in no acute distress. Alert and oriented. Answers questions appropriately. Mood and affect are appropriate. Thoughts are goal oriented and rational. No tangential or magical thinking noted. Patient speaks in full sentences without needing to catch her breath. Speech is not slurred or pressured. Voice sounds normal. HEENT: Normocephalic atraumatic. Pupils are equally round reactive to light. Extraocular muscles are intact. Conjunctivae are moist without any icterus noted. Moist mucous membranes. Posterior pharynx is normal. Neck is soft without any lymphadenopathy or thyromegaly. No masses are appreciated. Cardiovascular: Heart is regular rate and rhythm S1 and S2 are present with a 2/6 systolic murmur Lungs: Clear to auscultation bilaterally, no wheezes rhonchi or rales are appreciated. Abdomen: Soft and nontender nondistended with normal bowel sounds. Extremities: Bilateral lower extremities show trace edema. Skin: Well perfused without any obvious rashes. Const: Vital Signs, click to edit/add: Vital Signs - 24 hr 11/30/23 18:10 11/30/23 19:29 11/30/23 20:33 Temperature 96.6 F L Pulse Rate 67 Pulse Rate [Pulse Oximeter] 94 Respiratory Rate 16 18 Blood Pressure 201/83 H Blood Pressure [Ri ght Upper Arm] 148/101 H Pulse Oximetry 95 97 93 Oxygen Delivery Me thod Room Air 11/30/23 20:34 11/30/23 20:45 11/30/23 21:00 Temperature Pulse Rate 71 68 71 Pulse Rate [Pulse Oximeter] Respiratory Rate Blood Pressure Blood Pressure [Ri ght Upper Arm] Pulse Oximetry 96 97 97 Oxygen Delivery Me thod 11/30/23 21:03 Temperature Pulse Rate Pulse Rate [Pulse Oximeter] Respiratory Rate 22 Blood Pressure Blood Pressure [Ri ght Upper Arm] Pulse Oximetry Oxygen Delivery Me thod Course Course ED Course: EKG, read by me, shows normal sinus rhythm with an occasional premature ventricular complex, right bundle branch block, 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 IV established and labs drawn. UA was unremarkable. Lactate was normal at 1.2. CBCs unremarkable. Chemistries are normal. Normal magnesium. Normal LFTs. BNP 3320. The Point of care troponin was elevated at 0.18 and a troponin I was elevated at 0.3. Chest x-ray, unremarkable. Subtle lung markings could represent atelectasis or pneumonia. Patient has no evidence of infection at this time. Did re-evaluate the patient at this time and she continues to feel just generally not 100%, however she denies any chest pain. She states that her shortness of breath just feels like she can not quite take a deep enough breath. Blood pressure did increase at this time to over 200 systolic, metoprolol 25 mg p.o. was ordered as well as oral aspirin. Repeat point of care troponin was down at 0.12. Repeat EKG, unchanged. Results of troponin I will be followed by the oncoming MD. Vital Signs Vital signs: Initial Vital Signs Temperature 96.6 F L 11/30/23 18:10 Temperature Source Temporal Artery Scan 11/30/23 18:10 Pulse Rate 94 11/30/23 18:10 Respiratory Rate 16 11/30/23 18:10 Blood Pressure 148/101 H 11/30/23 18:10 Blood Pressure Mean 116 H 11/30/23 18:10 Blood Pressure Position Sitting 11/30/23 18:10 Pulse Oximetry 95 11/30/23 18:10 Oxygen Delivery Method Room Air 11/30/23 18:10 Vital Signs Temperature 96.6 F L 11/30/23 18:10 Pulse Rate 94 11/30/23 18:10 Respiratory Rate 16 11/30/23 18:10 Blood Pressure 148/101 H 11/30/23 18:10 Pulse Oximetry 95 11/30/23 18:10 Oxygen Delivery Method Room Air 11/30/23 18:10 Temperature 98.1 F 12/01/23 11:00 Pulse Rate 73 12/01/23 11:00 Respiratory Rate 18 12/01/23 11:00 Blood Pressure 128/81 12/01/23 11:00 Pulse Oximetry 95 12/01/23 11:00 Oxygen Delivery Method Room Air 12/01/23 11:00 Medications Administered Medications: Discontinued Medications Generic Name Dose Route Start Last Admin Trade Name Abisaiq PRN Reason Stop Dose Admin Apixaban 5 mg 12/01/23 09:00 12/01/23 09:14 Apixaban 5 Mg Tablet PO 5 mg BID YOLANDA Administration Apixaban 5 mg 12/01/23 00:33 12/01/23 01:36 Apixaban 5 Mg Tablet PO 12/01/23 00:34 5 mg ONCE ONE Administration Aspirin 324 mg 11/30/23 21:16 11/30/23 22:02 Aspirin 81 Mg Tab.Chew PO 11/30/23 21:17 324 mg ONCE ONE Administration Atorvastatin Calcium 20 mg 12/01/23 01:30 12/01/23 01:43 Atorvastatin 10 Mg Tablet PO 20 mg DAILY YOLANDA Administration Calcium Carbonate 500 mg 12/01/23 09:00 12/01/23 09:14 Calcium Carbonate 500 Mg Tablet PO 500 mg DAILY YOLANDA Administration Gabapentin 600 mg 12/01/23 09:00 12/01/23 15:15 Gabapentin 600 Mg Tablet PO Not Given TID YOLANDA Gabapentin 200 mg 12/01/23 09:00 12/01/23 15:15 Gabapentin 100 Mg Capsule PO Not Given TID YOLANDA Gabapentin 600 mg 12/01/23 00:27 12/01/23 01:36 Gabapentin 600 Mg Tablet PO 12/01/23 00:28 600 mg ONCE ONE Administration Gabapentin 200 mg 12/01/23 00:28 12/01/23 01:35 Gabapentin 100 Mg Capsule PO 12/01/23 00:29 200 mg ONCE ONE Administration Sodium Chloride 500 mls @ 500 mls/hr 11/30/23 20:23 11/30/23 23:01 0.9 % Sodium Chloride 500 Ml IV 11/30/23 21:22 Not Given .Q1H ONE Melatonin 3 mg 11/30/23 22:46 12/01/23 01:36 Melatonin 3 Mg Tablet PO 3 mg HS PRN Administration Metoprolol Succinate 100 mg 12/01/23 09:00 12/01/23 09:14 Metoprolol Succinate (Xl) 100 Mg Tab PO 100 mg DAILY YOLANDA Administration Metoprolol Tartrate 25 mg 11/30/23 21:16 11/30/23 22:01 Metoprolol Tartrate 25 Mg Tablet PO 11/30/23 21:17 25 mg ONCE ONE Administration Ondansetron HCl 4 mg 11/30/23 20:23 11/30/23 23:02 Ondansetron 2 Mg/Ml Inj IVP 11/30/23 20:24 Not Given ONCE ONE Sertraline HCl 100 mg 12/01/23 09:00 12/01/23 10:08 Sertraline 100 Mg Tablet PO Not Given DAILY YOLANDA Sertraline HCl 100 mg 12/01/23 00:34 12/01/23 01:36 Sertraline 100 Mg Tablet PO 12/01/23 00:35 100 mg ONCE ONE Administration Sodium Chloride 5 ml 12/01/23 09:00 12/01/23 09:15 Sodium Chloride 0.9 % (Flush) 10 Ml Syringe IVF 5 ml BID YOLANDA Administration Valsartan 160 mg 12/01/23 09:00 12/01/23 09:17 Valsartan 160 Mg Tablet PO 160 mg BID YOLANDA Administration Valsartan 160 mg 12/01/23 00:38 12/01/23 01:44 Valsartan 160 Mg Tablet PO 12/01/23 00:39 160 mg ONCE ONE Administration Vitamin D 125 mcg 12/01/23 09:00 12/01/23 09:14 Cholecalciferol (Vitamin D3) 25 Mcg Tablet (1000 Unit) PO 125 mcg DAILY YOLANDA Administration Medical Decision Making Lab Data Labs: Lab Results 11/30/23 11/30/23 11/30/23 Range/Units 18:30 19:50 20:05 WBC 11.37 H (4.50-11.00) K/uL RBC 5.69 H (4.00-5.20) m/uL Hgb 15.7 (12.0-16.0) gm/dL Hct 49.6 (33.0-51.0) % MCV 87 (80-100) fL MCH 28 (26-34) pg MCHC 32 (32-36) gm/dL RDW Coeff of Diane 14.3 (11.5-15.5) % Plt Count 283 (140-440) K/uL Neut % (Auto) 67.7 (42.0-72.0) % Lymph % (Auto) 18.3 L (20-44) % Hodgeman % (Auto) 8.7 (0.0-11.0) % Eos % (Auto) 4.6 (0.0-7.0) % Baso % (Auto) 0.4 (0.0-3.0) % Neut # (Auto) 7.70 H (1.7-7.0) K/uL Lymph # (Auto) 2.10 (0.90-2.90) K/uL Hodgeman # (Auto) 1.00 H (0.00-0.90) K/UL Eos # (Auto) 0.50 (0.00-0.50) K/uL Baso # (Auto) 0.00 (0.00-0.30) K/uL Abs Immat Gran (auto) 0.00 (0.00-0.30) K/uL Imm/Tot Granulo (auto) 0.3 % Sodium 136 (135-149) mmol/L Potassium 4.1 (3.6-5.1) mmol/L Chloride 104 (96-114) mmol/L Carbon Dioxide 24 (20-32) mmol/L Anion Gap 8 (7-15) mEq/L BUN 20 (7-30) mg/dL Creatinine 0.8 (0.5-1.5) mg/dL Estimated Creat Clear 39.23 Estimated GFR 71 ml/min Glucose 111 (60-115) mg/dL Lactate 1.2 (0.5-1.9) mmol/L Calcium 9.3 (8.4-10.6) mg/dL Magnesium 2.3 (1.5-2.6) mg/dL Total Bilirubin 0.8 (0.1-1.5) mg/dL Direct Bilirubin 0.3 (0.0-0.5) mg/dL AST 29 (12-35) U/L ALT 15 (4-35) U/L Alkaline Phosphatase 66 (40-150) U/L Troponin I 0.30 H* (0.01-0.04) ng/mL C-Reactive Protein 0.7 (0.5-1.0) mg/dL NT-Pro-B Natriuret Pep 3320 pg/mL Total Protein 7.2 (6.0-8.3) g/dL Albumin 4.2 (3.3-5.0) g/dL TSH 1.280 (0.270-4.20) uIU/mL Urine Color Yellow (Yellow) Urine Appearance Clear (Clear) Urine pH 5.5 (5.0-8.5) Ur Specific Reliance 1.025 (1.000-1.030) Urine Protein Negative (Negative) Urine Glucose (UA) Negative (Negative) Urine Ketones Negative (Negative) Urine Blood Negative (Negative) Urine Nitrite Negative (Negative) Urine Bilirubin Negative (Negative) Urine Urobilinogen 0.2 (0.2-1.0) Ur Leukocyte Esterase 1+ A (Negative) Urine RBC 0-2 (0-2) Urine WBC 2-5 (0-5) Ur Squamous Epith Cells Few (None-Few) Urine Bacteria Few A (None) SARS-CoV-2 (PCR) Negative SARS-CoV-2 (Negative) Influenza Type A (PCR) Negative PCR FLU A (Negative) Influenza Type B (PCR) Negative PCR FLU B (Negative) POC Troponin I 0.18 H (0.01-0.04) ng/ml 11/30/23 Range/Units 21:40 WBC (4.50-11.00) K/uL RBC (4.00-5.20) m/uL Hgb (12.0-16.0) gm/dL Hct (33.0-51.0) % MCV (80-100) fL MCH (26-34) pg MCHC (32-36) gm/dL RDW Coeff of Diane (11.5-15.5) % Plt Count (140-440) K/uL Neut % (Auto) (42.0-72.0) % Lymph % (Auto) (20-44) % Hodgeman % (Auto) (0.0-11.0) % Eos % (Auto) (0.0-7.0) % Baso % (Auto) (0.0-3.0) % Neut # (Auto) (1.7-7.0) K/uL Lymph # (Auto) (0.90-2.90) K/uL Hodgeman # (Auto) (0.00-0.90) K/UL Eos # (Auto) (0.00-0.50) K/uL Baso # (Auto) (0.00-0.30) K/uL Abs Immat Gran (auto) (0.00-0.30) K/uL Imm/Tot Granulo (auto) % Sodium (135-149) mmol/L Potassium (3.6-5.1) mmol/L Chloride (96-114) mmol/L Carbon Dioxide (20-32) mmol/L Anion Gap (7-15) mEq/L BUN (7-30) mg/dL Creatinine (0.5-1.5) mg/dL Estimated Creat Clear Estimated GFR ml/min Glucose (60-115) mg/dL Lactate (0.5-1.9) mmol/L Calcium (8.4-10.6) mg/dL Magnesium (1.5-2.6) mg/dL Total Bilirubin (0.1-1.5) mg/dL Direct Bilirubin (0.0-0.5) mg/dL AST (12-35) U/L ALT (4-35) U/L Alkaline Phosphatase (40-150) U/L Troponin I 0.27 H* (0.01-0.04) ng/mL C-Reactive Protein (0.5-1.0) mg/dL NT-Pro-B Natriuret Pep pg/mL Total Protein (6.0-8.3) g/dL Albumin (3.3-5.0) g/dL TSH (0.270-4.20) uIU/mL Urine Color (Yellow) Urine Appearance (Clear) Urine pH (5.0-8.5) Ur Specific Reliance (1.000-1.030) Urine Protein (Negative) Urine Glucose (UA) (Negative) Urine Ketones (Negative) Urine Blood (Negative) Urine Nitrite (Negative) Urine Bilirubin (Negative) Urine Urobilinogen (0.2-1.0) Ur Leukocyte Esterase (Negative) Urine RBC (0-2) Urine WBC (0-5) Ur Squamous Epith Cells (None-Few) Urine Bacteria (None) SARS-CoV-2 (PCR) (Negative) Influenza Type A (PCR) (Negative) Influenza Type B (PCR) (Negative) POC Troponin I 0.12 H (0.01-0.04) ng/ml Imaging Data Chest x-ray: Attestation: I have reviewed the pertinent imaging results. Radiologist's impression: Shortness of breath. TECHNIQUE: Chest 2 views. COMPARISON: 07/17/2023. FINDINGS: Cardiovascular and mediastinum: Atherosclerotic and uncoiled thoracic aorta. Normal heart size. Unchanged 2 lead right chest cardiac device Lungs and pleural spaces: New subtle increased lung markings within the periphery of the lingular base. No pleural effusion or pneumothorax. Bones and soft tissues: Unremarkable for age. IMPRESSION: Subtle increased lung markings within the periphery of the lingula base could represent atelectasis or pneumonia, in the correct clinical setting. Discharge Plan Discharge Condition: Improved Activity Level: Activity as Tolerated Discharge Diet: Regular
[2023-11-30 20:25] LABS: Basophils Percent Auto 0.4 % (0.0-3.0); Eosinophils Percent Auto 4.6 % (0.0-7.0); Hematocrit 49.6 % (33.0-51.0); Hemoglobin* 15.7 gm/dL (12.0-16.0); Immature Granulocytes Pct Auto 0.3 %; Lymphocytes Percent Auto 18.3 % (20-44); Mean Corpuscular HGB Conc 32 gm/dL (32-36); Mean Corpuscular Hemoglobin 28 pg (26-34); Mean Corpuscular Volume 87 fL (80-100); Monocytes Percent Auto 8.7 % (0.0-11.0); Neutrophils Percent Auto 67.7 % (42.0-72.0); Platelet Count* 283 K/uL (140-440); RDW Coefficient of Variation % 14.3 % (11.5-15.5); Red Blood Count 5.69 m/uL (4.00-5.20); White Blood Count* 11.37 K/uL (4.50-11.00)
[2023-11-30 20:31] LABS: Troponin, Point-of-Care* 0.18 ng/ml (0.01-0.04)
[2023-11-30 20:32] LABS: Slide Review Reflex No
[2023-11-30 20:39] LABS: Albumin* 4.2 g/dL (3.3-5.0); Chloride* 104 mmol/L (96-114); Sodium* 136 mmol/L (135-149)
[2023-11-30 20:40] LABS: Potassium* 4.1 mmol/L (3.6-5.1)
[2023-11-30 20:41] LABS: Creatinine* 0.8 mg/dL (0.5-1.5); Est. Creatinine Clearance* 39.23; Estimated Glomerular Filt Rate 71 ml/min
[2023-11-30 20:42] LABS: Alanine Aminotransferase* 15 U/L (4-35); Alkaline Phosphatase* 66 U/L (40-150); Anion Gap 8 mEq/L (7-15); Aspartate Amino Transferase* 29 U/L (12-35); Bilirubin Direct* 0.3 mg/dL (0.0-0.5); Bilirubin Total* 0.8 mg/dL (0.1-1.5); Blood Urea Nitrogen* 20 mg/dL (7-30); Carbon Dioxide* 24 mmol/L (20-32); Glucose* 111 mg/dL (60-115); Total Protein* 7.2 g/dL (6.0-8.3)
[2023-11-30 20:43] LABS: Calcium* 9.3 mg/dL (8.4-10.6); Magnesium* 2.3 mg/dL (1.5-2.6)
[2023-11-30 20:45] LABS: PCR FLU A Negative PCR FLU A (Negative); PCR FLU B Negative PCR FLU B (Negative); SARS PCR* Negative SARS-CoV-2 (Negative)
[2023-11-30 20:45] LABS: C Reactive Protein* 0.7 mg/dL (0.5-1.0)
[2023-11-30 20:57] LABS: NT Pro B Type NatriureticPept* 3320 pg/mL
[2023-11-30] MEDS: METOPROLOL TARTRATE 25 MG TABLET PO (22:01)
[2023-11-30] MEDS: ASPIRIN 81 MG TAB.CHEW 324 MG PO (22:02)
[2023-11-30 22:13] LABS: Troponin, Point-of-Care* 0.12 ng/ml (0.01-0.04)
[2023-11-30 22:31] LABS: Troponin I* 0.27 ng/mL (0.01-0.04)
--- OUTSIDE RECORDS SUMMARY | 2023-11-30 23:07 | XMS_ITS | Encounter Summary ---
Author Organization [facility] Address [address] [address] Care Team Providers Care Paint Pourer Name Role Phone Lina Armstrong MD Primary Care Provider [phone]- [phone] Reason for Visit * Reason Comments Appointment Encounter Details Date Type Department Care Team (Late Contact Info) Description 11/07/2023 Telephone - Urology [address] [place], [place] [id number] Lynn Pompa MBBS [address] [place] [address] Appointment Social History Tobacco Use [...] Info) Description 01/10/2024 7:45 AM CDT Appointment - Urology [address] [facility] [place] [address] Lynn Pompa MBBS [address] [place] [address] documented as of this encounter Visit Diagnoses Not on filedocumented in this encounter Care Teams Paint Pourer Relationship Specialty Start Date End Date Lina Armstrong MD [address] [place] [address] PCP - General Internal Medicine 11/03/23 documented as of this encounter
--- OUTSIDE RECORDS SUMMARY | 2023-11-30 23:07 | XMS_ITS | Clinical Summary ---
Author Organization [facility] Address [place], [place] [address] Care Team Providers Care Restaurant Hospitality Manager Name Role Phone Lina Armstrong MD Primary Care Provider [phone]- [phone] Allergies Active Allergy Reactions Criticality Noted Date Comments Bacitracin *Unknown Medium 11/10/2017 Intermediate 08/17/2017 per [facility] info Erythromycin *Unknown Medium 11/10/2017 Intermediate reaction per [facility] 08/17/2017 Latex Throat Swelling/Closing High [...] Type Department Care Team Description 11/30/2023 Telephone [facility] [address] [address] Tal Herman, LUPILLO Device Check 11/28/2023 Telephone [facility] [address] [address] Leanne Jean I, LUPILLO Device Check 11/28/2023 Telephone [facility] [address] [address] Jn Clemons MD Atrial Fibrillation [...] Comments Blood Pressure 160/72 07/11/2023 2:06 PM TOWER CRANE OPERATOR Pulse 94 07/11/2023 2:06 PM TOWER CRANE OPERATOR Temperature 36.8 ??C (98.3 ??F) 08/04/2018 7:37 AM CD T Respiratory Rate 16 01/31/2020 10:47 AM CDT Oxygen Saturation 98% 07/11/2023 2:06 PM TOWER CRANE OPERATOR Inhaled Oxygen Concentration - - Weight 103.4 kg (228 lb) 07/11/2023 2:06 PM TOWER CRANE OPERATOR Height 174 cm (5' 8.5) 09/28/2021 12:50 PM CDT Body Mass Index 34.16 09/28/2021 12:50 PM CDT Plan of Treatment Upcoming Encounters Date Type Department Care Team (Late st Contact Info) Description 12/01/2023 Cardiac Device Check [facility] [phone] 01/25/2024 Cardiac Device Check [facility] [phone] Health Maintenance Due Date Last Done Comments [...] Code Status Discussion: Not Discussed Care Teams Restaurant Hospitality Manager Relationship Specialty Start Date End Date Lina Armstrong MD [address] [place] [address] PCP - General Internal Medicine 09/08/21
--- OUTSIDE RECORDS SUMMARY | 2023-11-30 23:07 | XMS_ITS | Clinical Summary ---
Author Organization [employer] [facility] Address [address] [place] [address] Care Team Providers Care Online Media Director Name Role Phone Lina Armstrong MD Primary Care Provider [phone]- [phone] Source Comments You are receiving this document as you are listed as the primary care provider,follow-up provider, or the patient has been referred to you for consultation.This is in compliance with the Medicare and[facility] EHR Incentive Program,which states Providers who transition their patient to another setting of careor provider of care or refers their patient to another provider of care shouldprovide summary care record for each transition of care or referral. Axial Allergies Active Allergy Reactions Criticality Noted Date [...] Type Department Care Team Description 11/17/2023 Notes/Orders [facility] - Urology [address] [place] [address] Lynn Pompa MBBS Urinary frequency (Primary Dx) 11/07/2023 Telephone [facility] - Urology [address] [facility] [place] [address] Lynn Pompa MBBS Appointment 11/03/2023 1:00 PM CDT Nursing Visit [facility] [address] [address] [address] [place] [address] Nurse, Bv Uro Urinary incontinence, mixed (Primary Dx) 10/25/2023 Telephone [facility] [address] [address] [address] [place] [phone] Radha Martinez PA-C Follow-up, NOS from Last [...] Info) Description 01/10/2024 7:45 AM CDT Appointment [facility] - Urology [address] [facility] [place], [place] [phone] Lynn Pompa, MBBS [address] [place], [place] [id number] Health Maintenance Due Date Last Done Comments [...] Qual (mg/dL) Negative Negative 11/03/2023 1:28 PM [facility] Bilirubin Urine Negative Negative 11/03/2023 1:28 PM [facility] Ketones, Urine (mg/dL) Negative Negative 11/03/2023 1:28 PM [facility] Specific [place], Urine 1.015 1.005 - 1.030 11/03/2023 1:28 PM [facility] Blood, Urine Trace Neg/Trace 11/03/2023 1:28 PM [facility] PH Urine 7.0 5.0 - 8.0 11/03/2023 1:28 PM [facility] Protein, Urine Qual (mg/dL) Negative Neg/Trace 11/03/2023 1:28 PM [facility] Urobilinogen, Urine (EU/dL) 0.2 <2.0 11/03/2023 1:28 PM [facility] Nitrite Urine Negative Negative 11/03/2023 1:28 PM [facility] Leukocyte Est. Negative Negative 11/03/2023 1:28 PM [facility] Urine Color Yellow 11/03/2023 1:28 PM CDT [facility] Urine Clarity Clear Clear 11/03/2023 1:28 PM CDT [facility] Performing Location [facility] 11/03/2023 1:28 PM CDT [facility] Urine 11/03/2023 1:24 PM CDT 11/03/2023 1:28 PM CDT Bv Uro Nurse LAB_1 [facility] [address] [place] [address], [facility] from Last 3 Months Care Teams Online Media Director Relationship Specialty Start Date End Date Lina Armstrong MD [address] [address] PCP - General Internal Medicine 11/03/23
--- OUTSIDE RECORDS SUMMARY | 2023-11-30 23:07 | XMS_ITS | Encounter Summary ---
[facility] Address [address], [place] [address] Care Team Providers Care Wind Energy Project Manager Name Role Phone Lina Armstrong MD Primary Care Provider [phone]- [phone] Encounter Details Date Type Department Care Team (Late st Contact Info) Description 11/17/2023 Notes/Orders [facility] - Urology [address] [place] [address] Lynn Pompa MBBS [address] [place] [address] Urinary frequency (Primary Dx) Social History Tobacco [...] Info) Description 01/10/2024 7:45 AM CDT Appointment [facility]rology [address] [place] [address] Lynn Pompa MBBS [address] [place] [address] Scheduled Orders Name Type Priority Associated Diagnoses Orde r Schedule Urine Culture Microbiology Routine Urinary frequency Expected: 11/17/2023 (Approximate), Expires: 02/15/2024 UA Micro If: Clean Catch Lab Routine Urinary frequency Expected: 11/17/2023, Expires: 02/15/2024 documented as of this encounter Visit Diagnoses Diagnosis Urinary frequency- Primary documented in this encounter Care Teams Wind Energy Project Manager Relationship Specialty Start Date End Date Lina Armstrong MD [address] [place] [address] PCP - General Internal Medicine 11/03/23 documented as of this encounter
--- OUTSIDE RECORDS SUMMARY | 2023-11-30 23:07 | XMS_ITS | Encounter Summary ---
Author Organization [facility] Address [address] [place] [address] Care Team Providers Care Plate Drying Machine Tender Name Role Phone Unavailable Primary Care Provider Unavailabl e Reason for Visit * Reason Comments Follow-up, NOS Encounter Details Date Type Department Care Team (Late st Contact Info) Description 10/25/2023 Telephone [facility] [address] [address] [place] [address] Radha Martinez PA-C [address] [place] [address] Follow-up, NOS Social History Tobacco Use Types [...] 7:45 AM CDT Appointment [facility] - Urology [address] [place], [place] [address] Lynn Pompa MBBS [address] [place], [place] [id number] documented as of this encounter Visit Diagnoses Not on filedocumented in this encounter
--- OUTSIDE RECORDS SUMMARY | 2023-11-30 23:07 | XMS_ITS | Encounter Summary ---
Author Organization [facility] Address [address], [place] [address] Care Team Providers Care Space Technologist Name Role Phone Lina Armstrong MD Primary Care Provider [phone]- [phone] Reason for Visit * Reason Comments Follow-up, NOS Encounter Details Date Type Department Care Team (Late st Contact Info) Description 11/03/2023 1:00 PM CDT [facility] [address] [facility] [address] [place] [address] Nurse, [facility] Urinary incontinence, [...] Info) Description 01/10/2024 7:45 AM CDT Appointment [facility] - Urology [address] [facility] [place], [place] [id number] Lynn Pompa MBBS [address] [place], [place] [id number] Scheduled Orders Name Type Priority Associated Diagnoses [...] (mg/dL) Negative Negative 11/03/2023 1:28 PM CDT [facility] Bilirubin Urine Negative Negative 11/03/2023 1:28 PM CDT [facility] Ketones, Urine (mg/dL) Negative Negative 11/03/2023 1:28 PM T [facility] Specific [place], Urine 1.015 1.005 - 1.030 11/03/2023 1:28 PM T [facility] Blood, Urine Trace Neg/Trace 11/03/2023 1:28 PM [facility] Urine 7.0 5.0 - 8.0 11/03/2023 1:28 PM T [facility] Protein, Urine Qual (mg/dL) Negative Neg/Trace 11/03/2023 1:28 PM CDT [facility] Urobilinogen, Urine (EU/dL) 0.2 <2.0 11/03/2023 1:28 PM CDT [facility] Nitrite Urine Negative Negative 11/03/2023 1:28 PM CDT [facility] Leukocyte Est. Negative Negative 11/03/2023 1:28 PM CDT [facility] Urine Color Yellow 11/03/2023 1:28 PM CDT [facility] Urine Clarity Clear Clear 11/03/2023 1:28 PM CDT [facility] Performing Location [facility] BU 11/03/2023 1:28 PM CDT [facility] Urine 11/03/2023 1:24 PM CDT 11/03/2023 1:28 PM CDT [facility] Nurse LAB_1 Performing Organization Address City/State/[facility] de Phone Number [facility] [address] [place] [address] documented in this encounter Visit Diagnoses Diagnosis Urinary incontinence, mixed- Primary Mixed incontinence urge and stress (male)(female) documented in this encounter Care Teams Space Technologist Relationship Specialty Start Date End Date Lina Armstrong MD [address] [place] [address] PCP - General Internal Medicine 11/03/23 documented as of this encounter
--- NOTE | 2023-11-30 23:29 | PM.IMHP1 ---
Hospitalist- H&P: HPI History of Present Illness Date Seen: 11/30/23 Chief complaint: dizzy, weak, pacemaker Narrative: Airam Ashraf is a 88 year old female admitted through the emergency department for not feeling well. She notes that for the last couple days she has had decreased energy. She has had some nausea but no vomiting or abdominal pain. She has felt a little lightheaded. She has been able to eat. She has not had a fever/chills, cold or cough. She has not had diarrhea. No blood in her stool. She has chronic urinary incontinence which has not changed. She has not noted more dyspnea. She has had no chest pain. She has a pacemaker placed in 2019. 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 Pacemaker evaluation done on 09/28/2023 showed it was working properly and primarily atrial pacing. Evaluation at that time did show she was having episodes of AFib with RVR. Two days ago her Apple watch noted that she was having AFib in she called the pacemaker clinic and they found that she was having episodes of AFib with RVR and rates between 150 and 200 beats per minute. She was seen in our emergency department today for this. During that evaluation she has had cardiac monitoring which is showing a sinus rhythm alternating with frequent PACs with a bigeminy pattern. 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 She also had an elevation of her troponin at 0.3 and repeat at 0.27. Review of Systems Narrative: She reports other than the symptoms above she has been generally doing well without recent illness. No syncope. No chest pain. [facility] Medical History (Updated 11/30/23 @ 23:44 by Elkin Johnson MD) Elevated troponin ?R79.89 - Other specified abnormal findings of blood chemistry (ICD-10) Pacemaker ?Z95.0 - Presence of cardiac pacemaker (ICD-10) Meningioma (2017) ?D32.9 - Benign neoplasm of meninges, unspecified (ICD-10) History of esophagitis ?Z87.19 - Personal history of other diseases of the digestive system (ICD-10) History of breast cancer ?Z85.3 - Personal history of malignant neoplasm of breast (ICD-10) History of pacemaker ?Z95.0 - Presence of cardiac pacemaker (ICD-10) History of healed fragility fracture ?Z87.310 - Personal history of (healed) osteoporosis fracture (ICD-10) Surgical History History of squamous cell carcinoma ?Z85.89 - Personal history of malignant neoplasm of other organs and systems (ICD-10) 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) ?Z96.652 - Presence of left artificial knee joint (ICD-10) 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 3-4/week , works [employer] 3 week, 2 kids, lives with daughter Arabella Code status is full code for witnessed arrest. Daughter Arabella and son Rafi who lives in [place] are her healthcare power of transactional attorney What is your current living situation?: I presently have a place to live Problems where you live: no known problems Problems where you live details: n/a In the past 12 months, utilities in danger of being shut off: no In past 12 months, lack of transportation kept you from medical appts, meetings, work, or getting things needed for daily living: no In the past 12 mos, have been you worried that your food would run out before you had money to buy more?: never true In the past 12 mos, the food you bought just didn't last and you didn't have money to buy more?: never true Smoking Status: Never smoker Do you use any of these nicotine containing products: None Second hand tobacco smoke exposure: No How often do you have a drink containing alcohol: 2-4 times a month AUDIT-C Alcohol total score: 2 Non-prescribed substance use: denies use Caffeine: Yes How often does anyone, including family, friends and others, physically hurt you: never How often does anyone, including family, friends and others, insult or talk down to you: rarely How often does anyone, including family, friends and others, threaten you with harm: never How often does anyone, including family, friends and others, scream or curse at you: never Little interest or pleasure in doing things: not at all Feeling down, depressed, or hopeless: not at all service: No Meds Home Medications and Allergies Home Medications ?Medication ?Instructions ?Recorded ?Confirmed ?Type L mastectomy bra 12/13/21 07/31/23 History calcium carbonate 600 mg PO DAILY 12/13/21 07/31/23 History cholecalciferol (vitamin D3) 125 5,000 unit PO DAILY 12/13/21 11/30/23 History mcg (5,000 unit) tablet apixaban 5 mg tablet 5 mg PO BID 07/31/23 11/30/23 History Allergies Allergy/AdvReac Type Severity Reaction Status Date / Time bacitracin Allergy Intermediate Pain, Verified 11/30/23 18:09 irritation latex Allergy Mild Rash, Verified 11/30/23 18:09 effects breathing nickel Allergy Mild Irritation Verified 11/30/23 18:09 erythromycin base Allergy Unknown Verified 11/30/23 18:09 Exam Narrative: Exam Narrative: She is alert and appears in no distress. She gives her own history with fairly good detail. Oropharynx is normal. Neck is supple without mass or adenopathy. Respirations are clear to auscultation. Cardiovascular: S1, S2, irregularly irregular. 2/6 systolic ejection murmur heard best at the left lower sternal border. Abdomen is soft without tenderness or mass. External genitalia normal. Extremities normal. Trace edema in her legs. Const: Vital Signs, click to edit/add: Vital Signs - 24 hr 11/30/23 18:10 11/30/23 19:29 11/30/23 20:33 Temperature 96.6 F L Pulse Rate 67 Pulse Rate [Pulse Oximeter] 94 Respiratory Rate 16 18 Blood Pressure 201/83 H Blood Pressure [Ri ght Upper Arm] 148/101 H Pulse Oximetry 95 97 93 Oxygen Delivery Me thod Room Air 11/30/23 20:34 11/30/23 20:45 11/30/23 21:00 Temperature Pulse Rate 71 68 71 Pulse Rate [Pulse Oximeter] Respiratory Rate Blood Pressure Blood Pressure [Ri ght Upper Arm] Pulse Oximetry 96 97 97 Oxygen Delivery Me thod 11/30/23 21:03 11/30/23 21:03 11/30/23 21:15 Temperature Pulse Rate 69 92 Pulse Rate [Pulse Oximeter] Respiratory Rate 22 Blood Pressure Blood Pressure [Ri ght Upper Arm] Pulse Oximetry 98 95 Oxygen Delivery Me thod 11/30/23 21:39 11/30/23 21:42 11/30/23 22:03 Temperature Pulse Rate Pulse Rate [Pulse Oximeter] Respiratory Rate Blood Pressure 202/84 H 183/71 H 187/80 H Blood Pressure [Ri ght Upper Arm] Pulse Oximetry Oxygen Delivery Me thod 11/30/23 22:25 11/30/23 22:30 11/30/23 22:33 Temperature Pulse Rate 81 83 77 Pulse Rate [Pulse Oximeter] Respiratory Rate Blood Pressure 188/71 H Blood Pressure [Ri ght Upper Arm] Pulse Oximetry 89 92 Oxygen Delivery Me thod 11/30/23 22:45 Temperature Pulse Rate 86 Pulse Rate [Pulse Oximeter] Respiratory Rate Blood Pressure Blood Pressure [Ri ght Upper Arm] Pulse Oximetry Oxygen Delivery Me thod Documenting provider has reviewed patient's vital signs: yes Hospitalist - H&P: Result Labs Labs: Short CBC 11/30/23 Range/Units 20:05 WBC 11.37 H (4.50-11.00) K/uL Hgb 15.7 (12.0-16.0) gm/dL Hct 49.6 (33.0-51.0) % Plt Count 283 (140-440) K/uL BMP 11/30/23 20:05 Sodium 136 Potassium 4.1 Chloride 104 Carbon Dioxide 24 BUN 20 Creatinine 0.8 Glucose 111 Calcium 9.3 Cardiac Enzymes 11/30/23 11/30/23 Range/Units 20:05 21:40 Troponin I 0.30 H* 0.27 H* (0.01-0.04) ng/mL Liver Function 11/30/23 Range/Units 20:05 Total Bilirubin 0.8 (0.1-1.5) mg/dL Direct Bilirubin 0.3 (0.0-0.5) mg/dL AST 29 (12-35) U/L ALT 15 (4-35) U/L Alkaline Phosphatase 66 (40-150) U/L Albumin 4.2 (3.3-5.0) g/dL Urine 11/30/23 Range/Units 18:30 Urine Color Yellow (Yellow) Urine Appearance Clear (Clear) Urine pH 5.5 (5.0-8.5) Ur Specific [place] 1.025 (1.000-1.030) Urine Protein Negative (Negative) Urine Glucose (UA) Negative (Negative) ECG Attestation: I personally reviewed and interpreted this ECG as follows: (Sinus rhythm with occasional premature beats. Right bundle branch block. Left anterior fascicular block. Voltage criteria for LVH.) ECG interpretation date: 11/30/23 Imaging Chest x-ray: Radiologist's impression: INDICATION: Shortness of breath. TECHNIQUE: Chest 2 views. COMPARISON: 07/17/2023. FINDINGS: Cardiovascular and mediastinum: Atherosclerotic and uncoiled thoracic aorta. Normal heart size. Unchanged 2 lead right chest cardiac device Lungs and pleural spaces: New subtle increased lung markings within the periphery of the lingular base. No pleural effusion or pneumothorax. Bones and soft tissues: Unremarkable for age. IMPRESSION: Subtle increased lung markings within the periphery of the lingula base could represent atelectasis or pneumonia, in the correct clinical setting. Assessment and Plan Assessment and plan (1) Fatigue: Problem comment: Fatigue likely due to episodes of AFib with RVR. Improved rate control and monitor Status: Acute (2) Pacemaker: Problem comment: Appears to be function normally. Sensing AFib with RVR Status: Acute (3) Atrial fibrillation with RVR: Problem comment: Detected by Apple watch and pacemaker. Increase metoprolol. If necessary consider Cardizem. Status: Acute (4) Elevated troponin: Problem comment: Likely primarily due to AFib with RVR. Improve rate control and monitor Status: Inactive Plan Patient be admitted to the hospital for monitoring of cardiac rhythm, troponins, vital signs and cardiorespiratory symptoms. Total Time Spent Total Time Spent: Total time spent today is 75 minutes in evaluation and management and discussion with patient and her daughter about atrial fibrillation and elevated troponins
[2023-12-01 00:45] VITALS: PULSE 71
[2023-12-01] MEDS: GABAPENTIN 100 MG CAPSULE 200 MG PO ×2 (01:35→09:14)
[2023-12-01] MEDS: MELATONIN 3 MG TABLET PO (01:36)
[2023-12-01] MEDS: GABAPENTIN 600 MG TABLET PO ×2 (01:36→09:15)
[2023-12-01] MEDS: APIXABAN 5 MG TABLET PO ×2 (01:36→09:14)
[2023-12-01] MEDS: SERTRALINE 100 MG TABLET PO (01:36)
[2023-12-01] MEDS: ATORVASTATIN 10 MG TABLET 20 MG PO (01:43)
[2023-12-01] MEDS: VALSARTAN 160 MG TABLET PO ×2 (01:44→09:17)
[2023-12-01 02:03] VITALS: BP 169/69; PULSE 67; RESP 18; TEMP 36.6; O2SAT 92
--- NOTE | 2023-12-01 04:58 | PC.NURSE ---
Shift note: Pt alert and oriented on arrival to the unit at 2330. Pt had no complaints but reported that her pacemaker company called her and stated that her pacemaker was signaling A.fib with elevated HR. Pt denied palpitation, light headedness, chest pain or dizziness. Pt admitted for monitoring. hospital monitor has been A.fib with NSR and paced. Pt reported that she takes specific medications at bedtime including Sertraline, Melatonin, Gabapentin, Atorvastatin, and valsartan. MD notified because all medications were scheduled for tomorrow. MD verbally asked production underwriter to order one time for each of those medications. Order entered and medication administered to patient at 0140. Pt ambulated with SBA and walker to bathroom. BP was very high on admission but rechecked at 0200 reduced to 169/69. Pt educated on the pending echocardiogram today and expectation.
[2023-12-01 07:00] VITALS: BP 170/84; PULSE 65; PULSE 68; RESP 18; TEMP 36.8; O2SAT 94
[2023-12-01 09:00] VITALS: PULSE 68; RESP 18
[2023-12-01] MEDS: METOPROLOL SUCCINATE (XL) 100 MG TAB PO (09:14)
[2023-12-01] MEDS: CALCIUM CARBONATE 500 MG TABLET PO (09:14)
[2023-12-01] MEDS: SODIUM CHLORIDE 0.9 % (FLUSH) 10 ML SYRINGE 5 ML IVF (09:15)
[2023-12-01 11:00] VITALS: BP 128/81; PULSE 73; RESP 18; TEMP 36.7; O2SAT 95
--- NOTE | 2023-12-01 14:06 | P.DS_ITS ---
DS: Providers Provider Date Seen: 12/01/23 Date of admission: 11/30/23 23:04 Primary care physician: Lina Armstrong MD Admitting Clinician: Elkin Johnson MD Attending Physician on discharge: Liliya Osman [facility], [facility] Hospitalist Date of Discharge: 12/01/23 DS: Diagnosis Discharge Diagnosis (1) Fatigue: Status: Acute Problem details: Fatigue likely due to episodes of AFib with RVR, nearly resolved prior to discharge (2) Pacemaker: Status: Acute Problem details: Appears to be function normally. Sensing AFib with RVR. Family is following up on this (3) Atrial fibrillation with RVR: Status: Acute Problem details: Detected by Apple watch and pacemaker. Increased metoprolol to 112.5mg daily upon discharge. Outpatient follow up with PCP and Cardiology for ongoing medication management. (4) Elevated troponin: Status: Inactive Problem details: Likely primarily due to AFib with RVR. Trended down. EKG showing NSR, RBBB, left anterior fascicular block. Echo shows 1. Normal left ventricular size, normal wall thickness, normal global systolic function, calculated EF of 58 %. 2. Right ventricular cavity size is normal, global systolic RV function is normal. 3. Mildly enlarged left atrium. 4. The aortic valve is sclerotic, no stenosis and trivial regurgitation. 5. The mitral valve is sclerotic, mild mitral regurgitation. 6. The transmitral peak and mean gradients are 9.5 and 2.9 mmHg respectively (heart rate 65bpm). 7. Tricuspid valve is tethered. 8. Moderate tricuspid regurgitation. 9. 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 10. No pericardial effusion. DS: Summary Hospital Course Hospital Course: [age] year old female was admitted to the medical floor for observation in setting of recent AFib with RVR as noted on pacemaker. Telemetry overnight reassuring. Troponins trended down. Course of care and details as noted above. Metoprolol increased to 112.5mg daily with close outpatient follow-up. Remainder of chronic medical comorbidities were monitored and managed with home medications. Status at Discharge Overall status at discharge: patient is back to baseline Time Spent with Patient Time attestation: Total time spent providing and/or coordinating discharge services: Time spent: Greater than 30 minutes Exam Narrative: Exam Narrative: PHYSICAL EXAM General: Pleasant, conversant, NAD Cardiovascular: RRR Pulmonary: No dyspnea Neurological: Alert, answering questions appropriately Skin: Warm, dry. Const: Vital Signs, click to edit/add: Vital Signs - 24 hr 11/30/23 18:10 11/30/23 19:29 11/30/23 20:33 Temperature 96.6 F L Pulse Rate 67 Pulse Rate [Pulse Oximeter] 94 Pulse Rate [Right Pulse Oximeter] Respiratory Rate 16 18 Blood Pressure 201/83 H Blood Pressure [Ri ght Arm] Blood Pressure [Ri ght Upper Arm] 148/101 H Pulse Oximetry 95 97 93 Oxygen Delivery [facility] Room Air 11/30/23 20:34 11/30/23 20:45 11/30/23 21:00 Temperature Pulse Rate 71 68 71 Pulse Rate [Pulse Oximeter] Pulse Rate [Right Pulse Oximeter] Respiratory Rate Blood Pressure Blood Pressure [Ri ght Arm] Blood Pressure [Ri ght Upper Arm] Pulse Oximetry 96 97 97 Oxygen Delivery [facility] 11/30/23 21:03 11/30/23 21:03 11/30/23 21:15 Temperature Pulse Rate 69 92 Pulse Rate [Pulse Oximeter] Pulse Rate [Right Pulse Oximeter] Respiratory Rate 22 Blood Pressure Blood Pressure [Ri ght Arm] Blood Pressure [Ri ght Upper Arm] Pulse Oximetry 98 95 Oxygen Delivery [facility] 11/30/23 21:39 11/30/23 21:42 11/30/23 22:03 Temperature Pulse Rate Pulse Rate [Pulse Oximeter] Pulse Rate [Right Pulse Oximeter] Respiratory Rate Blood Pressure 202/84 H 183/71 H 187/80 H Blood Pressure [Ri ght Arm] Blood Pressure [Ri ght Upper Arm] Pulse Oximetry Oxygen Delivery [facility] 11/30/23 22:25 11/30/23 22:30 11/30/23 22:33 Temperature Pulse Rate 81 83 77 Pulse Rate [Pulse Oximeter] Pulse Rate [Right Pulse Oximeter] Respiratory Rate Blood Pressure 188/71 H Blood Pressure [Ri ght Arm] Blood Pressure [Ri ght Upper Arm] Pulse Oximetry 89 92 [facility] 11/[facility]/23 22:45 11/30/23 23:00 11/30/23 23:47 Temperature 98 F 98 F Pulse Rate 86 Pulse Rate [Pulse Oximeter] Pulse Rate [Right Pulse Oximeter] 72 72 Respiratory Rate 18 18 Blood Pressure Blood Pressure [Ri ght Arm] 182/86 H 182/86 H Blood Pressure [Ri ght Upper Arm] Pulse Oximetry 92 92 Oxygen Delivery [facility] Room Air Room Air 11/30/23 23:47 12/01/23 00:45 12/01/23 02:03 Temperature 98 F Pulse Rate 71 Pulse Rate [Pulse Oximeter] Pulse Rate [Right Pulse Oximeter] 67 Respiratory Rate 18 18 Blood Pressure Blood Pressure [Ri ght Arm] 169/69 H Blood Pressure [Ri ght Upper Arm] Pulse Oximetry 92 92 Oxygen Delivery [facility] Room Air Room Air 12/01/23 07:00 12/01/23 07:00 12/01/23 09:00 Temperature 98.2 F Pulse Rate 65 Pulse Rate [Pulse Oximeter] Pulse Rate [Right Pulse Oximeter] 68 68 Respiratory Rate 18 18 Blood Pressure Blood Pressure [Ri ght Arm] 170/84 H Blood Pressure [Ri ght Upper Arm] Pulse Oximetry 94 Oxygen Delivery [facility] Room Air 12/01/23 11:00 Temperature 98.1 F Pulse Rate Pulse Rate [Pulse Oximeter] Pulse Rate [Right Pulse Oximeter] 73 Respiratory Rate 18 Blood Pressure Blood Pressure [Ri ght Arm] 128/81 Blood Pressure [Ri ght Upper Arm] Pulse Oximetry 95 Oxygen Delivery [facility] Room Air DS: Data Data Completed and Pending Completed studies during hospitalization: Procedures Introduction of Other Gas into Respiratory Tract, Via Natural or Artificial Opening (06/08/23) Labs on day of discharge: Labs from last 24 hours 12/01/23 11/30/23 11/30/23 06:20 21:40 20:05 WBC 11.37 H RBC 5.69 H Hgb 15.7 Hct 49.6 MCV 87 MCH 28 MCHC 32 RDW Coeff of Diane 14.3 Plt Count 283 Neut % (Auto) 67.7 Lymph % (Auto) 18.3 L [place] % (Auto) 8.7 Eos % (Auto) 4.6 Baso % (Auto) 0.4 Neut # (Auto) 7.70 H Lymph # (Auto) 2.10 [place] # (Auto) 1.00 H Eos # (Auto) 0.50 Baso # (Auto) 0.00 Abs Immat Gran (auto) 0.00 Imm/Tot Granulo (auto) 0.3 Sodium 136 Potassium 4.1 Chloride 104 Carbon Dioxide 24 Anion Gap 8 BUN 20 Creatinine 0.8 Estimated Creat Clear 39.23 Estimated GFR 71 Glucose 111 Lactate 1.2 Calcium 9.3 Magnesium 2.3 Total Bilirubin 0.8 Direct Bilirubin 0.3 AST 29 ALT 15 Alkaline Phosphatase 66 Troponin I 0.20 H* 0.27 H* 0.30 H* C-Reactive Protein 0.7 NT-Pro-B Natriuret Pep 3320 Total Protein 7.2 Albumin 4.2 TSH 1.280 Urine Color Urine Appearance Urine pH Ur Specific [place] Urine Protein Urine Glucose (UA) Urine Ketones Urine Blood Urine Nitrite Urine Bilirubin Urine Urobilinogen Ur Leukocyte Esterase Urine RBC Urine WBC Ur Squamous Epith Cells Urine Bacteria SARS-CoV-2 (PCR) Influenza Type A (PCR) Influenza Type B (PCR) POC Troponin I 0.12 H 0.18 H 11/30/23 11/30/23 19:50 18:30 WBC RBC Hgb Hct MCV MCH MCHC RDW Coeff of Diane Plt Count Neut % (Auto) Lymph % (Auto) [place] % (Auto) Eos % (Auto) Baso % (Auto) Neut # (Auto) Lymph # (Auto) [place] # (Auto) Eos # (Auto) Baso # (Auto) Abs Immat Gran (auto) Imm/Tot Granulo (auto) Sodium Potassium Chloride Carbon Dioxide Anion Gap BUN Creatinine Estimated Creat Clear Estimated GFR Glucose Lactate Calcium Magnesium Total Bilirubin Direct Bilirubin AST ALT Alkaline Phosphatase Troponin I C-Reactive Protein NT-Pro-B Natriuret Pep Total Protein Albumin TSH Urine Color Yellow Urine Appearance Clear Urine pH 5.5 Ur Specific [place] 1.025 Urine Protein Negative Urine Glucose (UA) Negative Urine Ketones Negative Urine Blood Negative Urine Nitrite Negative Urine Bilirubin Negative Urine Urobilinogen 0.2 Ur Leukocyte Esterase 1+ A Urine RBC 0-2 Urine WBC 2-5 Ur Squamous Epith Cells Few Urine Bacteria Few A SARS-CoV-2 (PCR) Negative SARS-CoV-2 Influenza Type A (PCR) Negative PCR FLU A Influenza Type B (PCR) Negative PCR FLU B POC Troponin I Preliminary micro results at discharge 11/30/23 18:30 Urine Culture - Preliminary Urine,Clean Catch < 10,000 COL/ML MIXED GRAM POSITIVE DIONY ISOLATED NO FURTHER WORKUP Imaging Chest x-ray: Attestation: I have reviewed the pertinent imaging results. Radiologist's impression: Cardiovascular and mediastinum: Atherosclerotic and uncoiled thoracic aorta. Normal heart size. Unchanged 2 lead right chest cardiac device Lungs and pleural spaces: New subtle increased lung markings within the periphery of the lingular base. No pleural effusion or pneumothorax. Bones and soft tissues: Unremarkable for age. IMPRESSION: Subtle increased lung markings within the periphery of the lingula base could represent atelectasis or pneumonia, in the correct clinical setting. Discharge Plan Discharge Disposition: Home, Self-Care Date of Admission: 11/30/23 23:04 Attending Provider on Discharge: Liliya Osman Primary Care Provider: Lina Armstrong Condition: Improved Anticipated Discharge Date/Time: 12/01/23 13:55 Discharge Medications: New metoprolol succinate 25 mg tablet extended release 24 hr 12.5 mg PO DAILY Qty: 30 2RF Rx Instructions: to be taken with 100mg tablet for total of 112.5mg daily Continued cholecalciferol (vitamin D3) 125 mcg (5,000 unit) tablet 5,000 unit PO DAILY calcium carbonate 600 mg calcium (1,500 mg) tablet 600 mg PO DAILY (DME) L mastectomy bra 0 .Route .MEDSUPPLY sertraline 100 mg tablet 100 mg PO DAILY Qty: 90 3RF valsartan 160 mg tablet 160 mg PO BID Qty: 180 3RF gabapentin 800 mg tablet 800 mg PO TID Qty: 360 3RF metoprolol succinate 100 mg tablet extended release 24 hr 100 mg PO DAILY Qty: 90 3RF apixaban 5 mg tablet 5 mg PO BID alendronate 70 mg tablet 70 mg PO .Every 7 Days Qty: 4 0RF Patient Comments: on tuesdays atorvastatin 20 mg tablet 20 mg PO DAILY Qty: 90 2RF Discharge Orders: Discharge Order (Routine); Ordered 12/01/23 Ordered By: Liliya Osman Patient Education: A-fib (Atrial Fibrillation) (GEN) Additional Instructions: Continue to take your metoprolol as prescribed, adding the 12.5mg tablet, for a total of 112.5mg daily until follow up with Cardiology for further medication m anagement. Activity Level: Activity as Tolerated Discharge Diet: Regular Follow Up Appointments: Lina Armstrong MD [Primary Care Provider] - (post hospital follow up, afib, fatigue) Forms: [employer] Info Instructions
--- NOTE | 2023-12-01 15:29 | PC.NURSE ---
Nursing Care Hours: [id number] Pt this shift calm and cooperative, alert and oriented. No c/o pain. SB to independent ambulation in room using walker. No c/o of lightheadedness until one episode of palpitations noted and a warning from her watch reporting high HR. Tele strip printed and Paced NSR with 1st degree block. Hospitalist made aware, no further assessments needed at this time. ECHO done. Tolerating regular diet. No N/V. IV removed for discharge. Form filled out by pt to release information to dispatch supervisor. Forms signed, pt wheeled out to vehicle in stable condition.
== END 2023-12-01 15:22 | disposition home or self-care (01) ==
LOC: ED 19:55 → MEDSURG 23:05
PROVIDERS: Admitting Provider Family Medicine; Emergency Provider Family Medicine; PCP Internal Medicine; Visit Provider Family Medicine
DX: R79.89 Other specified abnormal findings of blood chemistry (principal); I48.91 Unspecified atrial fibrillation; R53.83 Other fatigue; R53.1 Weakness; R11.0 Nausea; R42 Dizziness and giddiness; I34.0 Nonrheumatic mitral (valve) insufficiency; I07.1 Rheumatic tricuspid insufficiency; I45.2 Bifascicular block; E78.5 Hyperlipidemia, unspecified; I10 Essential (primary) hypertension; Z79.01 Long term (current) use of anticoagulants; M85.80 Other specified disorders of bone density and structure, unspecified site; D32.9 Benign neoplasm of meninges, unspecified; R32 Unspecified urinary incontinence; Z95.0 Presence of cardiac pacemaker; Z96.649 Presence of unspecified artificial hip joint; Z90.12 Acquired absence of left breast and nipple; Z87.19 Personal history of other diseases of the digestive system; Z85.3 Personal history of malignant neoplasm of breast; Z87.310 Personal history of (healed) osteoporosis fracture; Z85.89 Personal history of malignant neoplasm of other organs and systems; Z96.652 Presence of left artificial knee joint; Z98.890 Other specified postprocedural states; Z78.9 Other specified health status
CPT/HCPCS: 36415; 71046; 80048; 80076; 81001; 83605; 83735; 83880; 84443; 84484; 85025; 86140; 87086; 87631; 93005; 93306; 94761; 99284; 99285; G0378; A9270

== ENCOUNTER 2024-01-03 14:30 | Outpatient (RCR) | payer MEDICARE, SELFPAY ==
--- NOTE | 2023-06-09 15:15 | PC.NURSE ---
Family called stating Bianka hadn't received New Rx she was sent home with. Securities Adviser called and verified and was told systme was down this morning. Unable to resend electronically, therefore printed and faxed doxycycline hyclate in @[phone].
--- NOTE | 2023-07-10 16:34 | PT.OPEX ---
PT [place] [facility] PT [facility] Eval Start: 07/10/23 12:51 Freq: Status: Active Protocol: Document 07/10/23 12:51 ENM (Rec: 07/10/23 14:23 ENM [id number]) E-signed By Sully Hinds DPT Physical Therapy Outpatient Evaluation Insurance Information Recert Due Date 10/02/23 Insurance Name Medicare B Medical Diagnosis age related physical disability Treating Diagnosis deconditioning, difficulty walking, upper and lower extremity weakness, impaired balance Referring MD Armstrong Subjective Subjective Patient presents to PT for difficulty walking and upper extremity weakness. Patient was seen for an episode of PT for deconditioning last year. Since then she has had two falls one from her power scooter and once with stepping in her garage. Both times she hit her head and went to the ED to be evaluated and was ok after them. She was doing gentle chair yoga but stopped doing it. Feels like she has no endurance for walking because she is getting used to using her scooter. She is using the 4WW at almost all times within the home and going to the clinic or grocery store. Mainly uses the scooter when she is on vacation. Is wanting to get her arms stronger so that it is not as difficult to lift things overhead. Patient reports that she no longer has the normal pressure hydrocephalus diagnosis. PMHx: pacemaker, breast cancer , L knee replacement, previous L hip fracture, previous L shoulder instability Current Work Status Retired Objective Other/Pertinent Objective Strength: 30s STS 7 reps with B UE use 5x STS 19.70s with use of B UE , feeling SOB shoulder flexion 3+/5 shoulder abduction 4-/5 shoulder ER 4-/5 shoulder IR 3+/5 hip flexors 4-/5 B knee extensors 4-/5 ankle DF L 3+/5 R 4-/5 gait/balance: 6MWT 583' with 4WW slow pace, walker far out in front, decreased foot clearance, flexed trunk and knee posture throughout narrow FARRAH minimal instability modified tandem mild instability Functional Test Performed & Score 30s STS 7 reps with B UE use 5x STS 19.70s with use of B UE , feeling SOB 6MWT 583' with 4WW slow pace, walker far out in front, flexed trunk and knee posture throughout Assessment Assessment/Impression Patient is an 88 year old female presenting with deconditioning and general weakness. Their primary complaint is of increasing weakness in their arms and difficulties walking longer distances. Patient is able to walk within her house and the store using her 4WW but is finding it more difficult to walk longer distances on vacation. She is also having more difficulty lifting items at home due to arm weakness. Patient has been seen in the past for similar complaints in PT which improved after a longer course of frequent PT. She is not wanting to do as intense of rehab this time around. Upon assessment patient displays decreased LE strength and endurance with 5xSTS and 30s STS testing. As well as decreased ambulation tolerance with 6MWT tolerating 583' with use of 4WW. She displays global upper and lower extremity weakness with MMT. Gait impairments present at baseline include flexed trunk posture, flexed knees, pushing walker too far in front and decreased foot clearance. Airam would greatly benefit from skilled PT to improve functional strength and activity tolerance to decrease caregiver burden, avoid further functional decline and to maintain independence with mobility. Primary Functional Limitations reaching, walking longer distances Plan of Care Rehabilitation Potential Fair Physical Therapy Goals In 10-12 visits: 1. Patient will be IND with HEP and self management of symptoms 2. Patient will be able to take items in/out of cupboards without difficulty 3. Patient will improve 5x STS from 19.7s to 15.7s (MDC 4s) to demonstrate improvement in LE functional strength 4. Patient will improve 6MWT from 583' to at least 650' to demonstrate improvements in community mobility 5. Patient will participate in a fitness routine at least 3 times a week to prevent further functional decline Coordination/Communication With Referral Source Treatment Plan/Direct Interventions Gait Training,Joint Mobilization,Manual Therapy, Neuromuscular Re-ed,Self-Care/ Home Management,Therapeutic Activities,Therapeutic Exercises Frequency/Duration 1x a week for 12 visits Patient Will Be Discharged From Therapy Completion of LTG(s), Independent w/HEP Evaluation Billing Untimed Code Treatment Minutes 33 Complexity Low Certification Information Initial Certification Date 07/10/23 Ending Certification Date 10/02/23 Provider Signature Shows Agreement With POC & Medical Necessity Physician Signature & Date Requested Please Sign/Date Here Physician Comment/Change : Physician NPI Number #
--- NOTE | 2023-10-02 16:16 | PT.OPDNX ---
PT [facility] Daily Note PT [facility] Out[facility] Daily Note Start: 07/10/23 12:51 Freq: Status: Active Protocol: Document 10/02/23 12:52 ENM (Rec: 10/02/23 14:57 ENM [id number]) E-signed By Sully Hinds DPT PT OP Daily Progress Note Visit Information Note Type Recert/Progress Note Visit Number [id number] Insurance Information Recert Due Date 12/31/23 Insurance Name Medicare B Medical Diagnosis age related physical disability Treating Diagnosis deconditioning, difficulty walking, upper and lower extremity weakness, impaired balance Referring MD Armstrong Subjective Subjective Has not fallen since last session. Arms have been good. Has been working on her exercises at home. It is ok reaching at home into cabinets but there is still a strain. Is still feeling like getting out of bed or out of the car it takes a while to get upright and walking. It takes about 10-15' for her to get going. Home Exercise Home Exercise Comments Access Code: [email or web address] URL: [email or web address] Date: 07/10/2023 Prepared by: Sully Hinds Exercises - Standing Bicep Curls with Resistance - 1 x daily - 3-4 x weekly - 2-3 sets - 8 reps - Seated Shoulder Row with Resistance Anchored at Feet - 1 x daily - 3-4 x weekly - 2- 3 sets - 8 reps - Seated Shoulder Abduction with Dumbbells - Thumbs Up - 1 x daily - 3-4 x weekly - 2-3 sets - 8 reps - Seated Shoulder Flexion with Dumbbells - 1 x daily - 3-4 x weekly - 2-3 sets - 8 reps - Sit to Stand with Armchair - 3 x daily - 7 x weekly - 1 sets - 5 reps Objective Functional Test Performed & Score 10/01- with B UE support 5x STS 19.76s , 18.39s 6MWT with 4WW 778' 09/17 MMT shoulder flexion L 4- /5 R 4/5 shoulder abduction L 3+/5 R 4- /5 Patient Instructed in Risks/Benefits Yes Therapeutic Exercise Therapeutic Exercise Minutes (minutes) 36 Therapeutic Exercise: To Restore Reassessment of obj measures- Functional Status 6MWT, ABC balance and 5xSTS . Discussed progress being made toward goals. Patient feels that she would like to continue focusing on improving ease of lifting in/out of cabinets. As well as stability with getting up from sitting then having to walk. Reinforced to patient that to make true changes in this she will have to also work on it at home which she is agreeable to. Airam also brings up concerns of floor transfers and would like to practice this in upcoming sessions. -Seated shoulder abduction 2# 2x5 -seated shoulder overhead press 2# 2x5 Therapeutic Activity Therapeutic Activity Minutes (minutes) 6 Therapeutic Activities Comments -1.5# lifting in/out of cupboard 2x5 B Neuromuscular Re-Ed Neuromuscular Reeducation Comments ABC balance scales: 1. 80% 2. 100% 3. 70% 4. 90% 5 . 20% 6. 0% 7. 0% 8. 90% 9. 100% 10. 80% 11. 0% 12. 50% 13 . 30% 14. 90% 15. 30% 16. 20% Treatment Minutes Timed Code Treatment Minutes 42 Total Treatment Time 42 Billing Units Therapeutic Exercise Units 3 Assessment/Impression Assessment/Impression Patient returns to PT for follow up of deconditioning and general weakness. Her main goal is to comfortably reach in/out of cupboards without as much strain. The range of motion for this has improved now the primary focus is on building up the strength to lift her cups. Patient displays a significant improvement in 6MWT compared to previous assessments, see obj measures above. Although she has not met her goal for 5xSTS her times are improving. This is the patients last scheduled appointment. Airam would benefit from an additional 7-9 visits 1x a week to further improve functional UE strength, power/ endurance for ambulation and general balance to decrease risk for future falls and to maintain her independence. She has made slow but steady progress toward her goals to date. Plan of Care Physical Therapy Goals In 10-12 visits: 1. Patient will be IND with HEP and self management of symptoms (PROGRESSING) 2. Patient will be able to take items in/out of cupboards without difficulty ( PROGRESSING, some strain still with lifting) 3. Patient will improve 5x STS from 19.7s to 15.7s (MDC 4s) to demonstrate improvement in LE functional strength ( PROGRESSING) 4. Patient will improve 6MWT from 583' to at least 650' to demonstrate improvements in community mobility MET 5. Patient will participate in a fitness routine at least 3 times a week to prevent further functional decline ( PROGRESSING, 2 times a week) Added 10/01: In an additional 7 visits 1. Patient will display a safe floor recovery strategy with the help of her daughter for improved transfers at home 2. Patient will be able to get out of the car and walk to the house with self reported improved confidence in order to keep up with her daughter Daily Plan of Care Continue per POC Daily Plan of Care Comments Plan: FLOOR TRANSFERS dynamic walks (STS to walking, quick pace) lifting in/out of cabinets and UE strength Recertification Information Initial Certification Date 07/10/23 Recertification Start Date 10/02/23 Recertification Due Date 12/31/23 Reasons to Continue Skilled Therapy Patient continues to benefit from skilled PT to further improve functional UE/LE strength and activity tolerance to maintain independence with mobility and decrease caregiver burden. Rehabilitation Potential fair-good due to chronic nature of symptoms and multiple medical comorbidities Continued Plan of Care and Interventions 1x a week for 7-9 visits decreasing frequency as appropriate Provider Signature Shows Agreement With POC & Medical Necessity
--- NOTE | 2023-12-06 13:44 | PT.OPEX ---
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 Symptoms started about 1 year ago. Her symptoms are of uncontrolled bladder leakage. Pt has found if she urinates every 2 hours, her episodes of leaking reduce greatly. Pt will also restrict her fluid intake to also reduce UI symptoms. Pt reports leaking multiple times a day. leaking with coughing, sneezing, bending, lifting, transitional movements, with feeling cold, and with running water. Pt can go through multiple pads or incontinence products daily . Does sleep well at night but leaks throughout the night and wakes with a pretty wet pad in the morning. Her overall bowel function is good. Pt has been for > 20 yrs and is not sexually active. Pt is leaving in approx 2 months on a cruise with her daughter. She is concerned with difficulty/inability to pack all her UI supplies. Goal for therapy includes better bladder control. Date of Last Physician Visit 11/01/23 Current Work Status Retired Precautions Treatment Precautions/Contraindications breast CA - mastectomy pacemaker L MEHREEN L TKA Objective Functional Test Performed & Score PF questionnaire: Bladder function: Bowel function: 334 Prolapse symptoms: 0/15 Sexual function: NA Bladder diary- 6 voids in 24 hours. every 2- 3 hours Assessment Assessment/Impression 88 yo client presents with UI issues. Overall pt has been somewhat successful with reducing her UI symptoms with 2 hour interval voiding. Does have symptoms of both urge and stress UI. With speaking with pt, she struggles with ability to try to stop or even slow her urinary stream with leaking. Leaks can vary in size, small to large. She is currently using a Depends undergarment to reduce any overflow of pads. Will go through a garment overnight that is soaked in the morning. Does not wake with any urge or need to void. Pt does feel like she is able to fully empty the bladder but does struggle with some issues of starting her stream. At time the stream can be weaker than she expects. Pt does not feel like she is drinking enough. Pt is using a large Yeti cup to consume water but unsure how many oz - she did agree to check on how many oz it can hold. Overall her bowel function is good. Daily BM with good consistency stools with ability to fully empty majority of the time. With pt 's current symptoms, she is appropriate for further skilled PT services including use of therapeutic exercise, therapeutic activities, neuromuscular re-ed, manual therapy, and self cares for symptom reduction. Plan of Care Rehabilitation Potential Good Physical Therapy Goals Short term goals to be achieved in 4 weeks 1. Able to state 4 of 4 urge suppression/bladder retraining strategies 2. Able to report a reducing her leaking during the day to 3 times a day or less often, 4 out of 7 days. 3. Pt will demonstrate use of functional PFM/precontraction to eliminate UI during coughing, bending, sneezing, and with transitional movements. 4. Will demonstrate an increase in PFM contraction endurance to 8 sec holds X 10 reps, or greater, for ability to reduce UI symptoms with ADLS and daily routine. manager intermediate goals to be achieved in 12 weeks. 1. Independent with self-care program to allow for reduction in her UI symptoms 2. Will report an 60% reduction in her UI symptoms as seen with ability to stay dry 4 out of 7 days. 3. Pt will report ability to stay dry 3 out of 7 nights at least. Coordination/Communication With Referral Source Treatment Plan/Direct Interventions Joint Mobilization,Manual Therapy,Neuromuscular Re-ed, Self-Care/Home Management, Therapeutic Activities, Therapeutic Exercises Frequency/Duration 1 time a week for up t 12 visits Patient Will Be Discharged From Therapy Completion of LTG(s),Skills Plateau,Independent w/HEP, Independently Progressing Evaluation Billing Untimed Code Treatment Minutes 45 Complexity Moderate Certification Information Initial Certification Date 12/06/23 Ending Certification Date 03/05/24 Provider Signature Required Yes Provider Signature Shows Agreement With POC & Medical Necessity Physician NPI Number Write NPI# Here Physician Comment/Change : Physician Signature & Date Requested Please Sign/Date Here
--- NOTE | 2023-12-22 09:49 | OT.OPGNE2 ---
OT Outpatient General/Neuro Eval OT Outpatient General/Neuro Eval* Start: 12/22/23 09:12 Freq: Status: Active Protocol: Document 12/21/23 19:00 SMW (Rec: 12/22/23 09:43 SMW [id number]) E-signed By Latesha Quintana, OT OT Outpatient Evaluation Details Type Type Eval Complexity Low Insurance Information Insurance Information Insurance Information Medicare B Outpatient History/Precautions Current Condition Referring Provider Dr. Armstrong Medical Diagnoses R41.89 symptoms and signs involving cognitive functions and awareness. Treatment Diagnoses cognitive assessments Medical/Functional History Medical History Reviewed Yes Prior Level of Function/Mobility The patient lives with her daughter in own home. She is I in ADLs and IADLs. Her daughter assists her as needed . She drives locally. 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 I didn't realize it until the cashier office told me at check out. Assessment Assessment Assessment The patient is a 88 year old female referred to the outpatient OT for cognitive assessments. The patient lives with her daughter. She completes ADLs and most IADLs independently. She uses a 4WW or cane for mobility. She drives locally. She desires to make sure her thinking is ok. The MoCA was administered today with the patient scoring 24/30. Points lost in language, attention and memory . Executive function 5/5. The Maze test completed in 41.41 seconds with 2 errors. This is not a passing score due to 2 errors vs 1 error. [place] making A completed in 54.79 seconds and [place] making B completed in 155 seconds. Both scores are WNL. The home safety/problem solving questionnaire administered with the patient scoring 13.5/ 17. Scores under 15 indicate probable deficits in problem solving and safety concerns. The patient will be seen for several visits to complete cognitive assessments, provide patient compensatory strategies for cognitive deficits. Occupational Therapy Treatment Plan - OP Potential Rehabilitation Potential Good Set Goals Goals Set with Patient Yes Goals Goals Within 4 visits, the patient will.. 1. complete cognitive assessments in order to determine baseline cognitive status. 2. verbalize understanding of results. 3. utilize compensatory strategies in daily activities . Treatment Plan Treatment Plan Evaluation,Therapeutic Activities,Self-Care/Home Management,Education Expected Frequency 1x Week Expected Duration 4-6 Weeks Certification Certification Statement I Certify That: Therapy Services Provided, Therapy Plan Established, Therapy Plan Reviewed Certification Information Clinic ID # [id number] Initial Certification Date 12/21/23 Provider Signature Required Yes Provider Signature Shows Agreement With POC & Medical Necessity Physician NPI Number Write NPI# Here Physician Comment/Change Comment or Changes Physician Signature & Date Requested Please Sign/Date Here
== END 2024-04-16 10:13 | disposition home or self-care (01) ==
PROVIDERS: PCP Internal Medicine; Visit Provider Internal Medicine
DX: R54 Age-related physical debility (principal); Z51.89 Encounter for other specified aftercare
CPT/HCPCS: 97110; 97161; 97162; 97165; 97530; 97535

== ENCOUNTER 2024-07-29 09:55 | Outpatient (CLI) | payer MEDICARE, SELFPAY | END 2024-07-29 09:56 | disposition home or self-care (01) | LOC: NFLDREF 07-30 20:33 | PROVIDERS: PCP Internal Medicine; Referring Provider Internal Medicine; Visit Provider Internal Medicine | DX: E78.5 Hyperlipidemia, unspecified (principal); M85.80 Other specified disorders of bone density and structure, unspecified site; I10 Essential (primary) hypertension; R73.03 Prediabetes; I48.0 Paroxysmal atrial fibrillation; D35.2 Benign neoplasm of pituitary gland | CPT/HCPCS: 80048; 80061; 82306 ==

== ENCOUNTER 2024-09-30 08:32 | Outpatient (CLI) | payer MEDICARE, SELFPAY ==
--- NOTE | 2024-09-30 08:45 | CRLHL7_ITS ---
For Patients: As a result of the Cures Act, medical imaging exams and procedure reports are released immediately into your electronic medical record. You may view this report before your referring provider. If you have questions, please contact your health care provider. DIGITAL DIAGNOSTIC RIGHT MAMMOGRAM USING TOMOSYNTHESIS AND COMPUTER-AIDED DETECTION RIGHT BREAST ULTRASOUND CLINICAL HISTORY: RIGHT breast lump. COMPARISON: 02/22/2022, 03/04/2020, 03/01/2019. TECHNIQUE: Digital RIGHT mammogram in two projections with computer-aided detection. Tomosynthesis was used in this interpretation. Real-time ultrasound imaging of RIGHT breast with imaging documentation. Scanning was performed by both the technologist and the radiologist. BREAST COMPOSITION: The breasts are heterogeneously dense, which may obscure small masses. FINDINGS: RIGHT breast mammogram images submitted. Indeterminate density is present in the upper RIGHT breast with mild architectural distortion. Skin thickening noted about RIGHT anterior breast. Targeted RIGHT breast ultrasound performed. At 12 o`clock 8 cm from the nipple, there is a solid spiculated hypoechoic mass measuring 1.1 x 1.4 x 1.4 cm. A small additional hypoechoic nodule is present in the RIGHT breast 11 o`clock 8 cm from the nipple which measures 3 x 5 x 5 millimeters, 1.3 cm from the larger lesion. Enlarged RIGHT axillary lymph node is present which measures 1.8 x 1.2 x 1.1 cm. The cortex measures 4.5 millimeters. IMPRESSION: Suspicious solid spiculated mass RIGHT breast 12 o`clock 8 cm from the nipple measuring 1.4 cm. Additional suspicious nodule RIGHT breast 11 o`clock 8 cm from the nipple measuring 5 millimeters. Suspicious RIGHT axillary lymph node measuring 1.8 cm. RECOMMENDATIONS: Ultrasound core needle biopsy of both breast lesions and the RIGHT axillary lymph node. A lay language report of this examination will be provided to the patient. BI-RADS Category 4: Suspicious Dictated by Tres German MD @ 09/30/2024 11:53:09 AM jj/Dictated by: Tres German MD @ 09/30/2024 11:53:00 AM (Electronically Signed)
--- NOTE | 2024-09-30 09:15 | US_ITS ---
Patient: DES SHIRLEY Facility:?[facility] RIS Patient ID:?[id number] Site Patient ID:?[id number]. Site :?[id number] Study:?US-Breast Right RT BREAST LIMITED / DSM TO READ-09/30/2024 9:46:55 AM Ordering Physician:?German Yarbrough Final Report: SEE DIGITAL DIAGNOSTIC RIGHT MAMMOGRAM PERFORMED SAME DAY CRL:dudley buckner/Dictated by: Tres German MD @ 09/30/2024 11:53:00 AM Signed by:?Tres German MD @09/30/2024 12:09:34 PM (Electronic Signature)
== END 2024-09-30 08:33 | disposition home or self-care (01) ==
LOC: MAMMO 08:33
PROVIDERS: PCP Internal Medicine; Visit Provider Internal Medicine
DX: N63.15 Unspecified lump in the right breast, overlapping quadrants (principal); R92.333 Mammographic heterogeneous density, bilateral breasts
CPT/HCPCS: 76642; 77065; G0279

== ENCOUNTER 2024-10-10 08:11 | Outpatient (CLI) | payer MEDICARE, SELFPAY ==
--- NOTE | 2024-10-10 08:15 | CRLHL7_ITS ---
For Patients: As a result of the Century Cures Act, medical imaging exams and procedure reports are released immediately into your electronic medical record. You may view this report before your referring provider. If you have questions, please contact your health care provider. ULTRASOUND-GUIDED CORE NEEDLE RIGHT BREAST BIOPSY OF TWO SITES AND POST-BIOPSY DIGITAL MAMMOGRAM FOR BIOPSY MARKER PLACEMENT CLINICAL HISTORY: Suspicious hypoechoic lesions. COMPARISON STUDIES: 09/30/2024 TECHNIQUE: Real-time ultrasound with image documentation was used for targeting the RIGHT breast lesions. A core needle biopsy system was used to obtain core tissue samples with a 16-gauge needle. Post-biopsy CC and ML digital mammograms were obtained to document position of the biopsy marker. CONSENT and TIME OUT: The procedure, risks, and alternatives were explained to the patient and a consent was signed. [place] Protocol was followed including pre-procedure verification that relevant information/documentation was available, reviewed and properly matched to the patient; consent accurate and complete; and equipment and supplies available. Time Out was conducted just prior to starting procedure to verify the four required elements: patient identity, correct side/site marked (if applicable), procedure, relevant images/results properly labeled and displayed (if applicable). PROCEDURE: All biopsies were performed in a similar manner. The patient was positioned supine on the ultrasound table. The breast was prepped with ChloraPrep. 8 cc of 1% lidocaine used for local anesthesia. Core samples were obtained. A sterile metal biopsy clip was placed percutaneously to sophia the lesion position within the breast. The specimens were placed in 10% formalin and sent to the Pathology Department. Pressure was held on the biopsy site until all bleeding subsided. The skin incision was closed with Steri-Strips. An ice pack was positioned over the biopsy site. The patient tolerated the procedure well. Post-biopsy instructions were reviewed with the patient, and a written copy was given to her. SITE A: LATERALITY: RIGHT breast LESION: Solid hypoechoic nodule measuring 3 x 5 x 5 mm located at 11 o`clock, 8 cm from the nipple. SUSPICION: High NUMBER OF SAMPLES: 6 BIOPSY CLIP SHAPE: HydroMARK PROXIMITY OF CLIP TO TARGET: Within the lesion SITE B: LATERALITY: RIGHT breast LESION: Solid spiculated hypoechoic nodule measuring 11 x 14 x 14 mm at 12 o`clock, 8 cm from the nipple. SUSPICION: High NUMBER OF SAMPLES: 6 BIOPSY CLIP SHAPE: Oval PROXIMITY OF CLIP TO TARGET: Within/adjacent to the lesion DISTANCE BETWEEN SITES A and B: 1.3 cm IMPRESSION: Ultrasound-guided RIGHT breast biopsy of two sites. When the pathology report is available, an addendum to this report will be made. ACR not applicable Dictated by Tres German MD @ 10/10/2024 10:30:17 AM [email or web address] RD/Dictated by: Tres German MD @ 10/10/2024 10:29:00 AM (Electronically Signed)
--- NOTE | 2024-10-10 08:15 | CRLHL7_ITS ---
For Patients: As a result of the Century Cures Act, medical imaging exams and procedure reports are released immediately into your electronic medical record. You may view this report before your referring provider. If you have questions, please contact your health care provider. ULTRASOUND-GUIDED RIGHT AXILLARY LYMPH NODE BIOPSY CLINICAL HISTORY: Suspicious enlarged right axillary lymph node, concerning for metastatic breast cancer. COMPARISON STUDIES: 09/30/2024 TECHNIQUE: Real-time ultrasound with image documentation was used for targeting the right axillary lymph node lesion. Core biopsy specimens were obtained using an automated gun with an 18-gauge biopsy needle. CONSENT and TIME OUT: The procedure, risks, and alternatives were explained to the patient and a consent was signed. [place] Protocol was followed including pre-procedure verification that relevant information/documentation was available, reviewed and properly matched to the patient; consent accurate and complete; and equipment and supplies available. Time Out was conducted just prior to starting procedure to verify the four required elements: patient identity, correct side/site marked (if applicable), procedure, relevant images/results properly labeled and displayed (if applicable). PROCEDURE: The patient was positioned supine on the ultrasound table. The right axilla was prepped with ChloraPrep. 8 cc of 1 percent lidocaine used for local anesthesia. Core samples were obtained. A sterile metal biopsy clip was placed percutaneously to sophia the lesion position within the right axilla. The specimens were placed in 10% formalin and sent to the pathology department. Pressure was held on the biopsy site until all bleeding subsided. The skin incision was closed with Steri-Strips. An ice pack was positioned over the biopsy site. Post-biopsy instructions were reviewed with the patient, and a written copy was given to her. LATERALITY: Right axilla LESION: Enlarged hypoechoic lymph node measuring 1.8 x 1.2 x 1.1 cm in the right axilla SUSPICION FOR MALIGNANCY: High NUMBER OF SAMPLES: 6 BIOPSY CLIP SHAPE: Oval PROXIMITY OF CLIP TO TARGET: Within the lesion IMPRESSION: Ultrasound-guided right axillary lymph node biopsy. When the pathology report is available, an addendum to this report will be made. ACR not applicable Dictated by Tres German MD @ 10/10/2024 10:25:48 AM (Electronically Signed)
--- NOTE | 2024-10-10 09:00 | CRLHL7_ITS ---
For Patients: As a result of the Century Cures Act, medical imaging exams and procedure reports are released immediately into your electronic medical record. You may view this report before your referring provider. If you have questions, please contact your health care provider. SEE RIGHT BREAST ULTRASOUND-GUIDED BIOPSY OF SAME DAY. [email or web address] RD/Dictated by: Tres German MD @ 10/10/2024 10:28:00 AM (Electronically Signed)
== END 2024-10-10 08:12 | disposition home or self-care (01) ==
LOC: US 08:11
PROVIDERS: PCP Internal Medicine; Visit Provider Internal Medicine
DX: N63.10 Unspecified lump in the right breast, unspecified quadrant (principal); C50.911 Malignant neoplasm of unspecified site of right female breast; C77.3 Secondary and unspecified malignant neoplasm of axilla and upper limb lymph nodes; R92.8 Other abnormal and inconclusive findings on diagnostic imaging of breast
CPT/HCPCS: 19083; 19084; 38505; 76942; 77065; 88305; 88341; 88342; 88360; 88361; A4648; A4649

== ENCOUNTER 2024-10-17 15:20 | Outpatient (CLI) | payer MEDICARE, SELFPAY | END 2024-10-17 15:21 | disposition home or self-care (01) | PROVIDERS: PCP Internal Medicine; Visit Provider Internal Medicine | DX: I48.0 Paroxysmal atrial fibrillation (principal); I51.7 Cardiomegaly; I35.2 Nonrheumatic aortic (valve) stenosis with insufficiency; I34.0 Nonrheumatic mitral (valve) insufficiency; I07.1 Rheumatic tricuspid insufficiency | CPT/HCPCS: 93306 ==

== ENCOUNTER 2024-11-11 09:30 | Outpatient (RCR) | payer MEDICARE, SELFPAY | END 2025-01-16 23:59 | disposition home or self-care (01) | LOC: CCIC 09:30 | PROVIDERS: PCP Internal Medicine; Visit Provider Internal Medicine Hematology & Oncology | DX: C50.911 Malignant neoplasm of unspecified site of right female breast (principal); Z17.0 Estrogen receptor positive status [ER+]; R53.1 Weakness; Z95.0 Presence of cardiac pacemaker | CPT/HCPCS: 99202; 99205; 99213; 99215; G0463 ==